=== PATIENT | female | born 1940 | race Caucasian/White ===

== ENCOUNTER 2018-12-04 11:52 | Inpatient (IN) | payer OTHER, MEDICARE ==
[2018-12-04] MEDS ORDERED: morphine CARPU-JECT 4 MG/1 ML DISP.SYRIN IVPUSH ONE (12:24)
--- NOTE | 2018-12-04 12:48 | PDOC ---
History of Present Illness - General Chief Complaint: Injury Stated Complaint: FALL Time Seen by Provider: 12/04/18 12:23 - History of Present Illness Initial Comments: 12/04/18 13:54 HPI 78 year old woman with a history of R knee replacement (5yrs ago) spinal stenosis, anemia, HTN who presents s/p fall after slipping on wet tiles. She reports she was walking when her leg slipped out from under her and she landed on her R hip and R forearm. She denies head trauma or loss of consciousness. She takes ASA 324 everyday but does not take any other AC. She reports she was unable to walk after the incident. She denies numbness and tingling in the leg. She is able to wiggle her toes. She cannot bend at the hip or the knee 2/2 pain. She has no other compalints. Denies neck or chest pain, denies shortbness of breath. ROS GENERAL/CONSTITUTIONAL: No fever or chills. No weakness. HEAD, EYES, EARS, NOSE AND THROAT: No change in vision. No ear pain or discharge. No sore throat. CARDIOVASCULAR: No chest pain or shortness of breath RESPIRATORY: No cough, wheezing, or hemoptysis. GASTROINTESTINAL: No nausea, vomiting, diarrhea or constipation. GENITOURINARY: No dysuria, frequency, or change in urination. MUSCULOSKELETAL: See HPI SKIN: No rash NEUROLOGIC: No headache, vertigo, loss of consciousness, or change in strength/ sensation. PE GENERAL: Awake, alert, and fully oriented, in no acute distress HEAD: No signs of trauma, normocephalic, atraumatic EYES: EOMI, sclera anicteric, conjunctiva clear ENT: oropharynx clear without exudates. Moist mucosa NECK: Normal ROM, supple LUNGS: No distress, speaks full sentences, clear to auscultation bilaterally HEART: Regular rate and rhythm, normal S1 and S2, no murmurs, rubs or gallops, peripheral pulses normal and equal bilaterally. ABDOMEN: Soft, nontender, normoactive bowel sounds. No guarding, no rebound. No masses EXTREMITIES : tenderness to palpation of the R thigh, difficulty flexing at hip and knee 2/2 pain, NV intact NEUROLOGICAL: Cranial nerves II through XII grossly intact. Normal speech, no focal sensorimotor deficits SKIN: Warm, Dry, normal turgor, no rashes or lesions noted MDM 8 year old woman with a history of R knee replacement (5yrs ago) spinal stenosis , anemia, HTN who presents s/p fall after slipping on wet tiles. She reports she was walking when her leg slipped out from under her and she landed on her R hip and R forearm. DDX including but not limited to: femoral fx vs sprain W/U: - cbc, cmp ,caogs, type and screen, xr of hip and femur TX: - morphine ED Course: labs Na- 128 liter normal saline ordered XR with R intratrochanter fracture with less trochanter avulsion Case discussed with Orthopedics Dr. Zuniga, plan for OR tomorrow Case discussed with resident Dr. Aparicio Patient admitted to medicine Shirin Xiong, PGY2 Emergency Medicine Past History - Past Medical History Allergies/Adverse Reactions: Allergies Allergy/AdvReac Type Severity Reaction Status Date / Time adhesive Allergy Intermediate Itching Verified 03/07/16 13:53 aspirin Allergy Intermediate POSS GI Verified 03/07/16 13:53 BLEEDING-ANEMIA NSAIDS (Non-Steroidal Allergy Intermediate POSS GI Verified 03/07/16 13:53 Anti-Inflamma BLEEDING-ANEMIA polyethylene glycol 3350 Allergy Intermediate ITCHING, Verified 03/07/16 13:53 [From Miralax] HIVES ranitidine Allergy Intermediate Itching, Verified 03/07/16 13:53 HIVES latex Allergy Itching Verified 03/07/16 13:53 BANDAIDS Allergy Intermediate ITCHING, Uncoded 03/07/16 13:53 HIVES Home Medications: Ambulatory Orders Ascorbate Calcium [Vitamin C] 500 mg PO DAILY 03/24/14 Ferrous Sulfate [Feosol] 325 mg PO DAILY 03/24/14 Amlodipine Besylate [Norvasc -] 5 mg PO DAILY 12/04/18 Chlorhexidine Gluconate [Peridex -] 1 unit DAILY 12/05/18 Losartan/Hydrochlorothiazide [Losartan-Hctz 100-12.5 mg Tab] 1 each PO DAILY Anemia: Yes (ON IRON SUPPLEMENT) Asthma: No Cancer: Yes (BASAL CELL 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) Cardiac Disorders: No CVA: No COPD: No CHF: No Dementia: No Diabetes: No GI Disorders: Yes (REFLUX, HIATAL HERNIA, DIVERTICULOSIS) Disorders: No HTN: Yes (2013) Hypercholesterolemia: No Liver Disease: No Seizures: No Thyroid Disease: No - Surgical History Abdominal Surgery: No Appendectomy: No Cardiac Surgery: No Cholecystectomy: No Lung Surgery: No Neurologic Surgery: No Orthopedic Surgery: Yes (GANGLION CYST-1973) - Suicide/Smoking/Psychosocial Hx Smoking History: Never smoked Have you smoked in the past 12 months: No Number of Cigarettes Smoked Daily: 20 If you are a former smoker, when did you quit?: 1994 Information on smoking cessation initiated: No Hx Alcohol Use: No Drug/Substance Use Hx: No Substance Use Type: None Hx Substance Use Treatment: No *Physical Exam - Vital Signs Last Vital Signs Temp Pulse Resp BP Pulse Ox 97.9 F 90 16 156/66 100 12/04/18 12:00 12/04/18 12:00 12/04/18 12:00 12/04/18 12:00 12/04/18 12:00 ED Treatment Course - LABORATORY CBC & Chemistry Diagram: 12/06/18 16:30 12/06/18 07:43 - RADIOLOGY Radiology Studies Ordered: Category Date Time Status CHEST X-RAY PORTABLE* [RAD] Stat Radiology 12/04/18 12:46 Ordered FEMUR-RIGHT [RAD] Stat Radiology 12/04/18 12:46 Ordered HIP & PELVIS-RIGHT [RAD] Stat Radiology 12/04/18 12:24 Ordered *DC/Admit/Observation/Transfer Diagnosis at time of Disposition: Hip fracture - Discharge Dispostion Condition at time of disposition: Stable Decision to Admit order: Yes - Referrals - Patient Instructions - Post Discharge Activity
[2018-12-04 13:07] LABS: BASO % 0.7 % (0-2.0); EOS % 2.3 % (0-4.5); HEMOGLOBIN 12.5 GM/dL (10.7-15.3); LYMPH % 19.9 % (8-40); MCH 30.4 pg (25.7-33.7); MCHC 33.8 g/dl (32.0-36.0); MEAN CELL VOLUME 89.9 fl (80-96); MONO % 9.1 % (3.8-10.2); PLATELET COUNT 311 K/MM3 (134-434); RBC 4.12 M/mm3 (3.60-5.2); WHITE BLOOD COUNT 5.3 K/mm3 (4.0-10.0)
[2018-12-04 13:19] LABS: INR 0.92 (0.83-1.09); PROTHROMBIN TIME (PATIENT) 10.8 SEC (9.7-13.0)
[2018-12-04 13:31] LABS: ALBUMIN 4.1 g/dl (3.4-5.0); BILIRUBIN,TOTAL 0.9 mg/dL (0.2-1); BLOOD UREA NITROGEN 17.9 mg/dL (7-18); CALCIUM 9.3 mg/dL (8.5-10.1); CREATININE 0.8 mg/dL (0.55-1.3); POTASSIUM 4.3 mmol/L (3.5-5.1); TOT PROT 7.6 g/dl (6.4-8.2)
[2018-12-04] MEDS ORDERED: morphine SULFATE 4 MG/ML VIAL ONE (13:39)
[2018-12-04] MEDS ORDERED: SODIUM CHLORIDE 1,000 ML IV SCH (14:00)
--- NOTE | 2018-12-04 14:17 | PDOC ---
Documentation entered by Yu Alanis SCRIBE, acting as scribe for Jose Rodriguez MD. Jose Rodriguez MD: This documentation has been prepared by the Annabelle jarrell Xhesika, SCRIBE, under my direction and personally reviewed by me in its entirety. I confirm that the documentation accurately reflects all work, treatment, procedures, and medical decision making performed by me. Attending Attestation - Resident Resident Name: Shirin Xiong - ED Attending Attestation I have performed the following: I have examined & evaluated the patient, The case was reviewed & discussed with the resident, I agree w/resident's findings & plan, Exceptions are as noted - HPI HPI: 12/04/18 14:12 The patient is a 78 year old female with a significant past medical history of R knee replacement (5yrs ago), HTN, Anemia, and spinal stenosis who presents to the ED with 10/10 mid thigh pain s/p fall. Patient states she was walking, her leg slipped out from under her and she landed on her R hip and R forearm. Patient states she was unable to ambulate after her fall, however, she denies LOC or hitting her head. The patient denies chest pain, shortness of breath, headache and dizziness. Denies fever, chills, nausea, vomiting, diarrhea and constipation. Denies dysuria, frequency, urgency and hematuria. Allergies: NKA PCP: Elke Alarcon - Physicial Exam PE: 12/04/18 15:36 Vitals: Triage Vital signs reviewed General Appearance: no acute distress, well nourished well developed, Head: Atraumatic, normocephalic Neck: Supple;No Nuchal rigidity Chest Wall: Nontender Cardiac: Regular rate and rhythm, no murmurs, no rubs, no gallops, Lungs: Clear to auscultation bilateral, good air movement bilaterally, Abdomen: Soft, nondistended, normal bowel sounds, nontender to palpation Extremities:(+) R hip tenderness to palpation. no cyanosis, clubbing, or edema Skin: Warm and dry, no rashes or lesions, no petechiae Neuro: AOX3; Cranial Nerves 2-12 grossly c intact, Strength intact to all extremities, Sensation intact to all extremities, gait normal Psych: normal mood, normal affect - Medical Decision Making 12/04/18 16:35 The patient is a 78 year old female with a significant past medical history of R knee replacement (5yrs ago), HTN, Anemia, and spinal stenosis who presents to the ED with 10/10 mid thigh pain s/p fall. Patient states she was walking, her leg slipped out from under her and she landed on her R hip and R forearm. Patient states she was unable to ambulate after her fall, however, she denies LOC or hitting her head. Pt. is on ASA Positive right intertrochanteric hip fracture on x-ray Case discussed with orthopedics We'll admit to medicine for further management nothing by mouth after midnight likely surgery tomorrow.
--- NOTE | 2018-12-04 15:50 | HP ---
CHIEF COMPLAINT: mechanical fall PCP:dr. espitia HISTORY OF PRESENT ILLNESS: 78 y/o female with PMH of HTN, spinal stenosis presents to the ED after a mechanical fall- patient states that she was at a luncheon with her friends when she noticed some wet tiles on the floor underneath her, she slipped and fell onto her right side hurting her right hip/thigh and suffered a bruise on her right elbow. she denies any LOC,nor did she have any prodromal symptoms beforehand (no dizziness/chest pains/ sweats). this was a witnessed fall- she tried to get up afterwards however she was in too much pain so EMS was called. she is a very independent 78 y/o- she lives by herself with no home health aid, does all of her ADLS", however uses a cane to get around because she has chronic pain in her left leg due to her spinal stenosis;.she denies any recent travel or any sick contacts ER course was notable for: (1)Na 128 (2)XRAY done showing r intertrochanteric femur fx; ortho consulted (3)given morphine for pain Recent Travel: denies PAST MEDICAL HISTORY: see above PAST SURGICAL HISTORY: right knee replacement Social History: Smoking:former; quit 25 years ago Alcohol:social Drugs: denies Family History:sister has breast and ovarian ca; cousin has lymphoma Allergies adhesive Allergy (Intermediate, Verified 03/07/16 13:53) Itching aspirin Allergy (Intermediate, Verified 03/07/16 13:53) POSS GI BLEEDING-ANEMIA NSAIDS (Non-Steroidal Anti-Inflamma Allergy (Intermediate, Verified 03/07/16 13: 53) POSS GI BLEEDING-ANEMIA polyethylene glycol 3350 [From Miralax] Allergy (Intermediate, Verified 13:53) ITCHING, HIVES ranitidine Allergy (Intermediate, Verified 03/07/16 13:53) Itching, HIVES latex Allergy (Verified 03/07/16 13:53) Itching BANDAIDS Allergy (Intermediate, Uncoded 03/07/16 13:53) ITCHING, HIVES HOME MEDICATIONS: Home Medications Medication Instructions Recorded Ascorbate Calcium [Vitamin C] 500 mg PO DAILY 03/24/14 Ferrous Sulfate [Feosol] 325 mg PO DAILY 03/24/14 Amlodipine Besylate [Norvasc -] 5 mg PO DAILY 12/04/18 Losartan/Hydrochlorothiazide 1 each PO DAILY 12/04/18 [Losartan-Hctz 50-12.5 mg Tab] REVIEW OF SYSTEMS CONSTITUTIONAL: Absent: fever, chills, diaphoresis, generalized weakness, malaise, loss of appetite, weight change HEENT: Absent: rhinorrhea, nasal congestion, throat pain, throat swelling, difficulty swallowing, mouth swelling, ear pain, eye pain, visual changes CARDIOVASCULAR: Absent: chest pain, syncope, palpitations, irregular heart rate, lightheadedness , peripheral edema RESPIRATORY: Absent: cough, shortness of breath, dyspnea with exertion, orthopnea, wheezing, stridor, hemoptysis GASTROINTESTINAL: Absent: abdominal pain, abdominal distension, nausea, vomiting, diarrhea, constipation, melena, hematochezia GENITOURINARY: Absent: dysuria, frequency, urgency, hesitancy, hematuria, flank pain, genital pain MUSCULOSKELETAL: Present; myalgia, arthralgia Absent: joint swelling, back pain, neck pain SKIN: Absent: rash, itching, pallor HEMATOLOGIC/IMMUNOLOGIC: Absent: easy bleeding, easy bruising, lymphadenopathy, frequent infections ENDOCRINE: Absent: unexplained weight gain, unexplained weight loss, heat intolerance, cold intolerance NEUROLOGIC: Absent: headache, focal weakness or paresthesias, dizziness, unsteady gait, seizure, mental status changes, bladder or bowel incontinence PSYCHIATRIC: Absent: anxiety, depression, suicidal or homicidal ideation, hallucinations. PHYSICAL EXAMINATION Vital Signs - 24 hr 12/04/18 12:00 Temperature 97.9 F Pulse Rate 90 Respiratory 16 Rate Blood Pressure 156/66 O2 Sat by Pulse 100 Oximetry (%) GENERAL: Awake, alert, oriented, slightly tearful. HEENT; dry mucous membranes EYES:PEERLA: EOMI: no scleral icterus NECK:no JVD; no lympahdenopathy LUNGS:CTA B/L; no rales, rhonchi or wheezing HEART: Regular rate and rhythm, normal S1 and S2 without murmur, rub or gallop. ABDOMEN: Soft, nontender, not distended, normoactive bowel sounds, no guarding, no rebound, no masses. No hepatomegaly or splenomegaly. MUSCULOSKELETAL: decreased ROM on the right side; right hip tenderness upon palpation. EXTREMITIES: warm; well perfused no clubbing/cyanosis or edema NEUROLOGICAL: Cranial nerves II-XII intact. Normal speech RLE 3/5 strength RUE 5/5; LUE/LLE; 5/5 strength throughout sensation intact throughout PSYCHIATRIC: Cooperative. Good eye contact. Appropriate mood and affect. SKIN: Warm, dry, normal turgor, no rashes or lesions noted, normal capillary refill. Laboratory Results - last 24 hr 12/04/18 12/04/18 12/04/18 12:35 12:35 12:35 WBC 5.3 RBC 4.12 Hgb 12.5 Hct 37.0 D MCV 89.9 MCH 30.4 D MCHC 33.8 RDW 14.0 D Plt Count 311 MPV 7.0 L Absolute Neuts (auto) 3.6 Neutrophils % 68.0 Lymphocytes % 19.9 D Monocytes % 9.1 Eosinophils % 2.3 Basophils % 0.7 Nucleated RBC % 0 PT with INR INR PTT (Actin FS) 28.7 Sodium 128 L Potassium 4.3 Chloride 93 L Carbon Dioxide 25 Anion Gap 10 BUN 17.9 Creatinine 0.8 Est GFR (CKD-EPI)AfAm 81.27 Est GFR (CKD-EPI)NonAf 70.12 Random Glucose 115 H Calcium 9.3 Total Bilirubin 0.9 AST 20 ALT 16 Alkaline Phosphatase 112 Total Protein 7.6 Albumin 4.1 Blood Type Antibody Screen 12/04/18 12/04/18 12:35 13:42 WBC RBC Hgb Hct MCV MCH MCHC RDW Plt Count MPV Absolute Neuts (auto) Neutrophils % Lymphocytes % Monocytes % Eosinophils % Basophils % Nucleated RBC % PT with INR 10.80 INR 0.92 PTT (Actin FS) Sodium Potassium Chloride Carbon Dioxide Anion Gap BUN Creatinine Est GFR (CKD-EPI)AfAm Est GFR (CKD-EPI)NonAf Random Glucose Calcium Total Bilirubin AST ALT Alkaline Phosphatase Total Protein Albumin Blood Type B POSITIVE Antibody Screen Positive ASSESSMENT/PLAN: 78 y/o female with PMH of HTN, spinal stenosis presents to the ED after a mechanical fall found to have a right intertrochanteric femur fracture #Mechanical fall patient found to have right intertrochanteric femur fracture -ortho consulted; patient to be going to the OR tomorrow -type and screen -coags -NPO after midnight -morpine 2mg q6H PRN for pain control -SCDS for dvt ppx #Hyponatremia patient's sodium was 128; patient has been hyponatremic in the past -clinically looked dry on exam -NS @75mls/hr -will recheck BMP at 8pm #HTN -will c/w amlodipine 5mg daily -will c/w losartan/50mg daily and hold HCTZ F/E/N NS @75mls/hr hyponatremia- will recheck BMP at 8pm NPO after midnight Problem List - Problem (1) Hip fracture Code(s): S72.009A - FRACTURE OF UNSP PART OF NECK OF UNSP FEMUR, INIT Visit type - Emergency Visit Emergency Visit: Yes ED Registration Date: 12/04/18 Care time: The patient presented to the Emergency Department on the above date and was hospitalized for further evaluation of their emergent condition. - New Patient This patient is new to me today: Yes Date on this admission: 12/04/18 - Critical Care Critical Care patient: No ATTENDING PHYSICIAN STATEMENT I saw and evaluated the patient. I reviewed the resident's note and discussed the case with the resident. I agree with the resident's findings and plan as documented. SUBJECTIVE: OBJECTIVE: ASSESSMENT AND PLAN:
--- NOTE | 2018-12-04 16:41 | PN ---
Teaching Attending Note Name of Resident: Mariola Aparicio ATTENDING PHYSICIAN STATEMENT I saw and evaluated the patient. I reviewed the resident's note and discussed the case with the resident. I agree with the resident's findings and plan as documented. SUBJECTIVE: Reports R hip pain. No chest pain/palps/SOB. No fever/chills. OBJECTIVE: Afebrile, Hemodynamicaly Stable. Last Vital Signs Temp Pulse Resp BP Pulse Ox 97.9 F 90 16 156/66 100 12/04/18 12:00 12/04/18 12:00 12/04/18 12:00 12/04/18 12:00 12/04/18 12:00 HEENT- Atraumatic, Normocephalic. Heart- S1, S2, soft SM Lungs - clear to auscultation Abdomen - Soft, non-tender. Bowel Sounds normal. Extremities - bilateral varicosities, no calf tenderness. R leg shortened and externally rotated. Decreased ROM R hip due to pain. Laboratory Results - last 24 hr 12/04/18 12/04/18 12/04/18 12:35 12:35 12:35 WBC 5.3 RBC 4.12 Hgb 12.5 Hct 37.0 D MCV 89.9 MCH 30.4 D MCHC 33.8 RDW 14.0 D Plt Count 311 MPV 7.0 L Absolute Neuts (auto) 3.6 Neutrophils % 68.0 Lymphocytes % 19.9 D Monocytes % 9.1 Eosinophils % 2.3 Basophils % 0.7 Nucleated RBC % 0 PT with INR INR PTT (Actin FS) 28.7 Sodium 128 L Potassium 4.3 Chloride 93 L Carbon Dioxide 25 Anion Gap 10 BUN 17.9 Creatinine 0.8 Est GFR (CKD-EPI)AfAm 81.27 Est GFR (CKD-EPI)NonAf 70.12 Random Glucose 115 H Calcium 9.3 Total Bilirubin 0.9 AST 20 ALT 16 Alkaline Phosphatase 112 Total Protein 7.6 Albumin 4.1 Blood Type Antibody Screen 12/04/18 12/04/18 12:35 13:42 WBC RBC Hgb Hct MCV MCH MCHC RDW Plt Count MPV Absolute Neuts (auto) Neutrophils % Lymphocytes % Monocytes % Eosinophils % Basophils % Nucleated RBC % PT with INR 10.80 INR 0.92 PTT (Actin FS) Sodium Potassium Chloride Carbon Dioxide Anion Gap BUN Creatinine Est GFR (CKD-EPI)AfAm Est GFR (CKD-EPI)NonAf Random Glucose Calcium Total Bilirubin AST ALT Alkaline Phosphatase Total Protein Albumin Blood Type B POSITIVE Antibody Screen Positive Current Medications Generic Name Dose Route Start Last Admin Trade Name Davi PRN Reason Stop Dose Admin Amlodipine Besylate 5 mg 12/05/18 10:00 Norvasc - PO DAILY PORTILLO HCTZ/Losartan Potassium 1 tab 12/05/18 10:00 Hyzaar - PO DAILY PORTILLO Sodium Chloride 1,000 mls @ 0 mls/hr 12/04/18 14:00 12/04/18 15:44 Normal Saline - IV 1,000 mls/hr ASDIR PORTILLO Administration Wide Open Morphine Sulfate 2 mg 12/04/18 15:23 Morphine Sulfate IVPUSH Q6H PRN PAIN LEVEL 4 - 6 Home Medications Medication Instructions Recorded Ascorbate Calcium [Vitamin C] 500 mg PO DAILY 03/24/14 Ferrous Sulfate [Feosol] 325 mg PO DAILY 03/24/14 Amlodipine Besylate [Norvasc -] 5 mg PO DAILY 12/04/18 Losartan/Hydrochlorothiazide 1 each PO DAILY 12/04/18 [Losartan-Hctz 50-12.5 mg Tab] ASSESSMENT AND PLAN: 78 year old female with HTN, Spinal Stenosis, presents with r hip pain s/p mechanical fall, found to have acute R Intertrochanteric fracture. No preceding CP/palpitations/lightheadedness. No HI or LOC. XRAY Hip/Pelvis - R intertrochanteric Fracture with avulsion of lesser trochanter. 1. R hip fracture s/p Mechanical Orthopedics consulted, likely Sx tomorrow, NPO from [place] Morphine analgesia Patient at moderate risk for proposed procedure. Felicia-op hydration, DVT Px, Incentive Spirometry. Post-op PT 2. Hyponatremia, likely secondary to Dehydration Will gently hydrate and monitor response. 3. HTN - continue Amlodipine and Losartan. Hold HCTZ. DVT Px - Heparin SQ
[2018-12-04] MEDS ORDERED: ONDANSETRON 4 MG/2 ML VIAL IVPUSH PRN (16:43)
[2018-12-04] MEDS: MORPHINE SULFATE 2 MG/ML VIAL IVPUSH PRN (17:27)
[2018-12-04 18:35] VITALS: BMI 25.1
--- NOTE | 2018-12-04 19:38 | CONSULT ---
Consult - text type - Consultation Consultation Note: ORTHOPEDIC SURGERY CONSULTATION NOTE Department of Orthopedic Surgery HISTORY OF PRESENT ILLNESS Ms. Dietz is a 78 year old female with PMH of HTN, spinal stenosis presents to the ED after a mechanical fall. Patient states that she was at a luncheon with her friends when she noticed some wet tiles on the floor underneath her, she slipped and fell onto her right side hurting her right hip/thigh and suffered a bruise on her right elbow. The orthopedic service was consulted for a right hip fracture. The injury occurred after a slip and fall. The patient notes pain in her right hip, which improves with rest, and worsens with movement. Denies any other injuries. Denies LOC or head trauma. Denies numbness, tingling or other constitutional complaints. Denies tobacco use, drug use, alcohol abuse. The patient lives alone and uses a cane for assistive devices at baseline. FAMILY HISTORY non-contributory REVIEW OF SYMPTOMS A twelve-point review of systems was performed and was negative except as noted in HPI. PHYSICAL EXAM Constitutional: Alert and oriented to person, place, and time. Appears well- developed and well-nourished. No acute distress, appropriate mood and affect. Right Upper Extremity: Skin warm, dry, and intact; no lesions, rashes or ulcers noted. Mild bruising over right elbow. Muscle mass equal and symmetric to contralateral side. No atrophy noted. No masses or effusions noted. No tenderness to palpation all joints; nontender throughout rest of extremity. Full passive and active ROM, free from pain. Joints stable with no pathologic laxity. M/R/U/MSK/AX motor intact; SILT distally; 2+ radial pulses; Cap refill brisk. Tone and reflexes normal. Left Upper Extremity: Skin warm, dry, and intact; no lesions, rashes or ulcers noted. Muscle mass equal and symmetric to contralateral side. No atrophy noted. No masses or effusions noted. No tenderness to palpation all joints; nontender throughout rest of extremity. Full passive and active ROM, free from pain. Joints stable with no pathologic laxity. M/R/U/MSK/AX motor intact; SILT distally; 2+ radial pulses; Cap refill brisk. Tone and reflexes normal. Right Lower Extremity: Skin warm, dry, and intact; no lesions, rashes or ulcers noted. Muscle mass equal and symmetric to contralateral side. No atrophy noted. No masses or effusions noted. No tenderness to palpation/Tender to palpation at ; nontender throughout rest of extremity. No cords or calf tenderness No significant calf/ankle edema. ROM of the right hip. Unable to SLR, + log roll test. Full passive and active ROM of the knee and ankle and toes, free from pain. Joints stable with no pathologic laxity. EHL/TA/GS motor intact; SILT distally; 2+ DP pulses; Cap refill brisk. Tone and reflexes normal. Left Lower Extremity: Skin warm, dry, and intact; no lesions, rashes or ulcers noted. Muscle mass equal and symmetric to contralateral side. No atrophy noted. No masses or effusions noted. No tenderness to palpation all joints; nontender throughout rest of extremity. No cords or calf tenderness No significant calf/ankle edema. Able to SLR, Negative log roll test. Full passive and active ROM, free from pain. Joints stable with no pathologic laxity. EHL/TA/GS motor intact; SILT distally; 2+ DP pulses; Cap refill brisk. Tone and reflexes normal. Active Problems Problem Status Category Onset Hip fracture Acute Medical Social History Smoking history Former smoker Aproximately how many 20 cigarettes per day If you are a former smoker, 1995 when did you quit? Hx Alcohol Use No Allergies Allergy/AdvReac Type Severity Reaction Status Date / Time adhesive Allergy Intermediate Itching Verified 03/07/16 13:53 aspirin Allergy Intermediate POSS GI Verified 03/07/16 13:53 BLEEDING-ANEMIA NSAIDS (Non-Steroidal Allergy Intermediate POSS GI Verified 03/07/16 13:53 Anti-Inflamma BLEEDING-ANEMIA polyethylene glycol 3350 Allergy Intermediate ITCHING, Verified 03/07/16 13:53 [From Miralax] HIVES ranitidine Allergy Intermediate Itching, Verified 03/07/16 13:53 HIVES latex Allergy Itching Verified 03/07/16 13:53 BANDAIDS Allergy Intermediate ITCHING, Uncoded 03/07/16 13:53 HIVES Active Medications Generic Name Dose Route Start Last Admin Trade Name Freq PRN Reason Stop Dose Admin Amlodipine Besylate 5 mg 12/05/18 10:00 Norvasc - PO DAILY PORTILLO Heparin Sodium (Porcine) 5,000 unit 12/04/18 22:00 Heparin - SQ TID PORTILLO Sodium Chloride 1,000 mls @ 0 mls/hr 12/04/18 14:00 12/04/18 15:44 Normal Saline - IV 1,000 mls/hr ASDIR PORTILLO Administration Wide Open Losartan Potassium 50 mg 12/05/18 10:00 Cozaar - PO DAILY PORTILLO Morphine Sulfate 2 mg 12/04/18 15:23 12/04/18 17:27 Morphine Sulfate IVPUSH 2 mg Q6H PRN Administration PAIN LEVEL 4 - 6 Ondansetron HCl 4 mg 12/04/18 16:43 12/04/18 18:22 Zofran Injection IVPUSH 4 mg Q6H PRN Administration NAUSEA Vital Signs (last) Temp Pulse Resp BP Pulse Ox 97.9 F 75 20 115/72 97 12/04/18 18:26 12/04/18 18:26 12/04/18 18:49 12/04/18 18:26 12/04/18 18:49 Intake and Output 12/02/18 12/03/18 12/04/18 23:59 23:59 23:59 Intake Total 1000 Balance 1000 Intake: IV 1000 Normal Saline - 1,000 ml 1000 @ Wide Open IV ASDIR PORTILLO Rx#:[id number] Other: Voiding Method Toilet Bowel Movement No Weight 141 lb 14.4 oz Height 5 ft 3 in Body Mass Index (BMI) 25.1 Weight Measurement Method [facility] Measurement Method Est/Stated by Patient Laboratory 12/04/18 12:35 12/04/18 12:35 PT with INR 10.80 SEC (9.7-13.0) 12/04/18 12:35 PTT (Actin FS) 28.7 SECONDS (25.2-36.5) 12/04/18 12:35 IMAGING I personally reviewed all radiographs, CT, and other imaging. They demonstrate a right hip intertrochanteric fracture with subtrochanteric extension. ASSESSMENT AND PLAN Ms. Dietz is a 78 year old female presenting status post mechanical fall with a right sided hip fracture. We have reviewed the imaging and clinical findings in detail, as well as their potential implications. This is an operative fracture. Admit NPO past midnight except for meds NWB RLE CBC/BMP/Coags Type and Screen/2 units PRBC on hold IV Fluids as per medical team while NPO EKG CXR UA - Needs medical clearance note for surgery - Plan for surgery on 12/05/18 PM All questions were answered. Thank you for involving our team in the care of this patient. Please call us at [phone] with questions
--- NOTE | 2018-12-04 21:05 | EKG ---
Test Reason : Blood Pressure : / mmHG Vent. Rate : 067 BPM Atrial Rate : 067 BPM P-R Int : 180 ms QRS Dur : 084 ms QT Int : 402 ms P-R-T Axes : 088 065 029 degrees QTc Int : 424 ms SINUS RHYTHM WITH PREMATURE ATRIAL COMPLEXES OTHERWISE NORMAL ECG WHEN COMPARED WITH ECG OF 10-JAN-2014 18:46, PREMATURE ATRIAL COMPLEXES ARE NOW PRESENT Confirmed by MD LULU, ALEAH ([id number]) on 12/04/2018 9:05:35 PM Referred By: Confirmed By:ALEAH LAWSON MD
[2018-12-04] MEDS: HEPARIN NA (PORCINE) 5,000 UNITS/ML 1ML VIAL SQ SCH (21:43)
[2018-12-04 21:44] LABS: BLOOD UREA NITROGEN 16.6 mg/dL (7-18); CALCIUM 8.3 mg/dL (8.5-10.1); CREATININE 0.9 mg/dL (0.55-1.3); POTASSIUM 4.1 mmol/L (3.5-5.1)
[2018-12-05] MEDS: MORPHINE SULFATE 2 MG/ML VIAL IVPUSH PRN ×2 (00:24→08:33)
[2018-12-05] MEDS: HEPARIN NA (PORCINE) 5,000 UNITS/ML 1ML VIAL SQ SCH (05:30)
[2018-12-05 07:30] LABS: PROTHROMBIN TIME (PATIENT) 11.8 SEC (9.7-13.0)
[2018-12-05 07:32] LABS: ALBUMIN 2.9 g/dl (3.4-5.0); BLOOD UREA NITROGEN 13.1 mg/dL (7-18); CALCIUM 8.4 mg/dL (8.5-10.1); CREATININE 0.7 mg/dL (0.55-1.3); TOT PROT 5.5 g/dl (6.4-8.2)
[2018-12-05 07:33] LABS: ACTIVATED PTT 27.6 SECONDS (25.2-36.5)
[2018-12-05] MEDS: LOSARTAN POTASSIUM 50 MG TABLET (FP) PO SCH ×2 (08:34→09:11)
[2018-12-05] MEDS: amLODIPine BESYLATE 5 MG TABLET (FP) PO SCH ×2 (08:34→09:11)
[2018-12-05] MEDS ORDERED: LOSARTAN 50MG/HCTZ 12.5MG 1 TAB (FP) PO SCH (10:00)
[2018-12-05] MEDS ORDERED: MORPHINE SULFATE 2 MG/ML VIAL IVPUSH PRN (10:34)
[2018-12-05 10:57] LABS: BASO % 0.4 % (0-2.0); EOS % 0.9 % (0-4.5); HEMATOCRIT 26.3 % (32.4-45.2); HEMOGLOBIN 9.1 GM/dL (10.7-15.3); LYMPH % 25.5 % (8-40); MCH 31.2 pg (25.7-33.7); MCHC 34.6 g/dl (32.0-36.0); MEAN CELL VOLUME 89.9 fl (80-96); MEAN PLT VOLUME 7.2 fl (7.5-11.1); MONO % 10.1 % (3.8-10.2); NEUT % 63.1 % (42.8-82.8); PLATELET COUNT 201 K/MM3 (134-434); RBC 2.92 M/mm3 (3.60-5.2); RDW 13.3 % (11.6-15.6); WHITE BLOOD COUNT 4.8 K/mm3 (4.0-10.0)
--- NOTE | 2018-12-05 14:53 | PN ---
Progress Note (short form) - Note Progress Note: ORTHOPEDIC SURGERY PROGRESS NOTE Department of Orthopedic Surgery SUBJECTIVE No acute events overnight. No complaints currently. Denies chest pain, shortness of breath, or calf pain. No nausea or vomiting. Tolerating oral intake. Pain control difficult overnight, but improving. PHYSICAL EXAMINATION General: Alert, oriented, cooperative and no distress. Right Lower Extremity: Skin warm, dry, and intact; no lesions, rashes or ulcers noted. Muscle mass equal and symmetric to contralateral side. No atrophy noted. No masses or effusions noted. Tender to palpation at at the greater trochanter; nontender throughout rest of extremity. No cords or calf tenderness No significant calf/ankle edema. ROM of the right hip. Unable to SLR, + log roll test. Full passive and active ROM of the knee and ankle and toes, free from pain. Joints stable with no pathologic laxity. EHL/TA/GS motor intact; SILT distally; 2+ DP pulses; Cap refill brisk. Tone and reflexes normal. DVT Exam: No evidence of DVT seen on physical exam; No cords or calf tenderness ; No significant calf/ankle edema. Intake & Output 12/03/18 12/04/18 12/05/18 23:59 23:59 23:59 Intake Total 1240 0 Output Total 100 1250 Balance 1140 -1250 Intake: IV 1000 Normal Saline - 1,000 ml 1000 @ Wide Open IV ASDIR PORTILLO Rx#:[id number] Oral 240 0 Output: Urine 100 1250 Malik 1250 Void 100 Other: Voiding Method Bedpan Bedpan Bowel Movement No No Weight 141 lb 14.4 oz Height 5 ft 3 in Body Mass Index (BMI) 25.1 Weight Measurement Method Built in [facility] Weight Measurement Method Est/Stated by Patient Active Medications Generic Name Dose Route Start Last Admin Trade Name Freq PRN Reason Stop Dose Admin Amlodipine Besylate 5 mg 12/05/18 10:00 12/05/18 09:11 Norvasc - PO Not Given DAILY PORTILLO Heparin Sodium (Porcine) 5,000 unit 12/04/18 22:00 12/05/18 05:30 Heparin - SQ Not Given TID PORTILLO Sodium Chloride 1,000 mls @ 0 mls/hr 12/04/18 14:00 12/04/18 15:44 Normal Saline - IV 1,000 mls/hr ASDIR PORTILLO Administration Wide Open Losartan Potassium 50 mg 12/05/18 10:00 12/05/18 09:11 Cozaar - PO Not Given DAILY PORTILLO Morphine Sulfate 2 mg 12/05/18 10:34 12/05/18 12:48 Morphine Sulfate IVPUSH 2 mg Q4H PRN Administration PAIN LEVEL 4 - 6 Ondansetron HCl 4 mg 12/04/18 16:43 12/04/18 18:22 Zofran Injection IVPUSH 4 mg Q6H PRN Administration NAUSEA Vital Signs (last) Temp Pulse Resp BP Pulse Ox 98.7 F 71 20 104/49 L 96 12/05/18 14:26 12/05/18 10:30 12/05/18 12:00 12/05/18 10:30 12/05/18 12:00 Laboratory (coagulation) PT with INR 11.80 SEC (9.7-13.0) 12/05/18 06:20 Laboratory 12/05/18 06:20 12/05/18 06:20 ASSESSMENT AND PLAN Ms. Dietz is a 78 year old female presenting status post mechanical fall with a right sided hip fracture. We have reviewed the imaging and clinical findings in detail, as well as their potential implications. This is an operative fracture. Admit NPO except for meds NWB RLE CBC/BMP/Coags Type and Screen/2 units PRBC on hold IV Fluids as per medical team while NPO EKG CXR UA - Plan for surgery today All questions were answered. Thank you for involving our team in the care of this patient. Please call us at [phone] with questions
--- NOTE | 2018-12-05 14:57 | PN ---
Physical Exam: SUBJECTIVE: 78 y/o F w PMH HTN and spinal stenosis whom presented to the ED s/p mechanical fall and admitted for surgical intervention, seen at bedside MYRANDA 2. Imaging demonstrates RIGHT intertrochanteric fracture with avulsion of lesser trochanter. Surgery scheduled for today. Pt states she was unable to sleep 2/2 to discomfort and RIGHT hip pain. Otherwise, she denies SOB, CP, and bleeding. Pt denies NVFD and chills. OBJECTIVE: Vital Signs Temp Pulse Resp BP Pulse Ox 98.7 F 71 20 104/49 L 96 12/05/18 14:26 12/05/18 10:30 12/05/18 12:00 12/05/18 10:30 12/05/18 12:00 GENERAL: The patient is awake, alert, and fully oriented, in no acute distress. HEAD: Normal with no signs of trauma. EYES: SALO, EOMI, sclera anicteric, conjunctiva clear. No ptosis. ENT: Ears normal, nares patent, oropharynx clear without exudates, moist mucous membranes. NECK: Trachea midline, full range of motion, supple. LUNGS: Breath sounds equal, clear to auscultation bilaterally, no wheezes, no crackles, no accessory muscle use. HEART: Regular rate and rhythm, S1, S2 without murmur, rub or gallop. ABDOMEN: Soft, nontender, nondistended, normoactive bowel sounds, no guarding, no rebound, no hepatosplenomegaly, no masses. EXTREMITIES: RIGHT hip tender to palpation. 2+ pulses, warm, well-perfused, no edema. NEUROLOGICAL: Cranial nerves III through XII grossly intact. Normal speech, gait not observed. PSYCH: Normal mood, normal affect. SKIN: Warm, dry, normal turgor, no rashes or lesions noted Laboratory Results - last 24 hr 12/04/18 12/04/18 12/05/18 13:42 20:40 06:20 WBC 4.8 RBC 2.92 L Hgb 9.1 L Hct 26.3 L D MCV 89.9 MCH 31.2 MCHC 34.6 RDW 13.3 Plt Count 201 D MPV 7.2 L Absolute Neuts (auto) 3.0 Neutrophils % 63.1 Lymphocytes % 25.5 D Monocytes % 10.1 Eosinophils % 0.9 Basophils % 0.4 Nucleated RBC % 0 PT with INR INR PTT (Actin FS) Sodium 129 L Potassium 4.1 Chloride 96 L Carbon Dioxide 24 Anion Gap 9 BUN 16.6 Creatinine 0.9 Est GFR (CKD-EPI)AfAm 70.48 Est GFR (CKD-EPI)NonAf 60.81 Random Glucose 171 H Calcium 8.3 L Magnesium Total Bilirubin AST ALT Alkaline Phosphatase Total Protein Albumin Blood Type B POSITIVE Antibody Screen Positive Antibody Identification No Result Required. Antigen Identification No Result Required. 12/05/18 12/05/18 06:20 06:20 WBC RBC Hgb Hct MCV MCH MCHC RDW Plt Count MPV Absolute Neuts (auto) Neutrophils % Lymphocytes % Monocytes % Eosinophils % Basophils % Nucleated RBC % PT with INR 11.80 INR 1.00 PTT (Actin FS) 27.6 Sodium 132 L Potassium 4.0 Chloride 99 Carbon Dioxide 24 Anion Gap 8 BUN 13.1 Creatinine 0.7 Est GFR (CKD-EPI)AfAm 95.51 Est GFR (CKD-EPI)NonAf 82.41 Random Glucose 99 Calcium 8.4 L Magnesium 2.0 Total Bilirubin 1.0 AST 20 ALT 11 L Alkaline Phosphatase 80 Total Protein 5.5 L Albumin 2.9 L Blood Type Antibody Screen Antibody Identification Antigen Identification Active Medications Amlodipine Besylate (Norvasc -) 5 mg PO DAILY [facility] Last Admin: 12/05/18 09:11 Dose: Not Given Heparin Sodium (Porcine) (Heparin -) 5,000 unit SQ TID [facility] Last Admin: 12/05/18 05:30 Dose: Not Given Sodium Chloride (Normal Saline -) 1,000 mls @ 0 mls/hr IV ASDIR [facility] Last Admin: 12/04/18 15:44 Dose: 1,000 mls/hr Losartan Potassium (Cozaar -) 50 mg PO DAILY [facility] Last Admin: 12/05/18 09:11 Dose: Not Given Morphine Sulfate (Morphine Sulfate) 2 mg IVPUSH Q4H PRN PRN Reason: PAIN LEVEL 4 - 6 Last Admin: 12/05/18 12:48 Dose: 2 mg Ondansetron HCl (Zofran Injection) 4 mg IVPUSH Q6H PRN PRN Reason: NAUSEA Last Admin: 12/04/18 18:22 Dose: 4 mg ASSESSMENT/PLAN: 78 y/o F w PMH HTN and spinal stenosis that presented w RIGHT hip pain s/p mechanical fall, found to have acute RIGHT intertrochanteric fracture here today awaiting surgical intervention. # RIGHT hip fracture s/p mechanical fall - NPO for surgery today - Felicia-op hydration - Morphine for pain - Preoperative mortality predictor score 0.6% # Hyponatremia - Most likely d/t dehydration - Provide fluids # HTN - Cont. current regimen: Amlodipine and losartan. Hold HCTZ. # Acute Blood Loss Anemia - H/H drop from 12.5/37 to 9.1/26.3 - Most likely d/t fracture - Poss d/t dilution. - Cont. to monitor H/H - Start ferrous sulfate s/p surgery # F/E/N - NS - Cont. to monitor electrolytes - Low salt diet Visit type - Emergency Visit Emergency Visit: No - New Patient This patient is new to me today: Yes Date on this admission: 12/05/18 - Critical Care Critical Care patient: No - Discharge Referral Referred to [facility] Med [facility] No ATTENDING PHYSICIAN STATEMENT I saw and evaluated the patient. I reviewed the resident's note and discussed the case with the resident. I agree with the resident's findings and plan as documented. SUBJECTIVE: OBJECTIVE: ASSESSMENT AND PLAN:
[2018-12-05] MEDS ORDERED: ONDANSETRON 4 MG/2 ML VIAL IVPUSH PRN ×3 (15:06→19:02)
[2018-12-05] MEDS ORDERED: PROMETHAZINE HCL 25 MG/1 ML VIAL IVPB PRN ×2 (15:06→19:02)
[2018-12-05] MEDS ORDERED: BUPIVACAINE HCL/PF 0.5% (5 MG/ML) 30 ML VIAL IJ ONE (15:08)
[2018-12-05] MEDS ORDERED: MIDAZOLAM HCL 2 MG/2 ML SINGLE DOSE VIAL ONE (15:14)
[2018-12-05] MEDS ORDERED: LACTATED RINGERS SOLUTION 1,000 ML IV SCH ×2 (15:15→19:02)
[2018-12-05] MEDS ORDERED: SODIUM CHLORIDE 0.9% P/F 10 ML VIAL IJ ONE (15:29)
[2018-12-05] MEDS ORDERED: ceFAZolin SODIUM 1 GM VIAL ONE ×2 (15:29→16:42)
[2018-12-05] MEDS ORDERED: ceFAZolin SODIUM 1 GM VIAL IVPB ONE ×2 (15:49→16:42)
[2018-12-05] MEDS ORDERED: LIDOCAINE HCL/PF 2% SDV 5ML VIAL ONE (16:04)
[2018-12-05] MEDS ORDERED: ETOMIDATE 20 MG/10 ML AMPUL IVPUSH ONE (16:04)
[2018-12-05] MEDS ORDERED: ROCURONIUM BROMIDE 50 MG/5 ML SYRINGE ONE (16:04)
[2018-12-05] MEDS ORDERED: DEXAMETHASONE SOD PHOSPHATE 4 MG/1 ML VIAL ONE (16:34)
--- NOTE | 2018-12-05 16:45 | PN ---
Teaching Attending Note Name of Resident: Kee Bright ATTENDING PHYSICIAN STATEMENT I saw and evaluated the patient. I reviewed the resident's note and discussed the case with the resident. I agree with the resident's findings and plan as documented. SUBJECTIVE: Reports ongoing R hip pain. No chest pain/palps/SOB. No fever/ chills. OBJECTIVE: Afebrile, Hemodynamicaly Stable. Last Vital Signs Temp Pulse Resp BP Pulse Ox 98.7 F 71 20 104/49 L 96 12/05/18 14:26 12/05/18 10:30 12/05/18 12:00 12/05/18 10:30 12/05/18 12:00 Heart- S1, S2, soft SM Lungs - clear to auscultation Abdomen - Soft, non-tender. Bowel Sounds normal. Extremities - bilateral varicosities, no calf tenderness. R leg shortened and externally rotated. Decreased ROM R hip due to pain. Laboratory Results - last 24 hr 12/04/18 12/04/18 12/05/18 13:42 20:40 06:20 WBC 4.8 RBC 2.92 L Hgb 9.1 L Hct 26.3 L D MCV 89.9 MCH 31.2 MCHC 34.6 RDW 13.3 Plt Count 201 D MPV 7.2 L Absolute Neuts (auto) 3.0 Neutrophils % 63.1 Lymphocytes % 25.5 D Monocytes % 10.1 Eosinophils % 0.9 Basophils % 0.4 Nucleated RBC % 0 PT with INR INR PTT (Actin FS) Sodium 129 L Potassium 4.1 Chloride 96 L Carbon Dioxide 24 Anion Gap 9 BUN 16.6 Creatinine 0.9 Est GFR (CKD-EPI)AfAm 70.48 Est GFR (CKD-EPI)NonAf 60.81 Random Glucose 171 H Calcium 8.3 L Magnesium Total Bilirubin AST ALT Alkaline Phosphatase Total Protein Albumin Antibody Identification No Result Required. Antigen Identification No Result Required. 12/05/18 12/05/18 06:20 06:20 WBC RBC Hgb Hct MCV MCH MCHC RDW Plt Count MPV Absolute Neuts (auto) Neutrophils % Lymphocytes % Monocytes % Eosinophils % Basophils % Nucleated RBC % PT with INR 11.80 INR 1.00 PTT (Actin FS) 27.6 Sodium 132 L Potassium 4.0 Chloride 99 Carbon Dioxide 24 Anion Gap 8 BUN 13.1 Creatinine 0.7 Est GFR (CKD-EPI)AfAm 95.51 Est GFR (CKD-EPI)NonAf 82.41 Random Glucose 99 Calcium 8.4 L Magnesium 2.0 Total Bilirubin 1.0 AST 20 ALT 11 L Alkaline Phosphatase 80 Total Protein 5.5 L Albumin 2.9 L Antibody Identification Antigen Identification Current Medications Generic Name Dose Route Start Last Admin Trade Name Freq PRN Reason Stop Dose Admin Amlodipine Besylate 5 mg 12/05/18 10:00 12/05/18 09:11 Norvasc - PO Not Given DAILY PORTILLO Fentanyl 50 mcg 12/05/18 15:06 Sublimaze Injection - IVPUSH [id number] PRN PAIN-PACU ORDER X 4 DOSES ONLY Heparin Sodium (Porcine) 5,000 unit 12/04/18 22:00 12/05/18 05:30 Heparin - SQ Not Given TID PORTILLO Sodium Chloride 1,000 mls @ 0 mls/hr 12/04/18 14:00 12/04/18 15:44 Normal Saline - IV 1,000 mls/hr ASDIR PORTILLO Administration Wide Open Lactated Ringer's 1,000 mls @ 125 mls/hr 12/05/18 15:15 Lactated Ringers Solution IV ASDIR PORTILLO Losartan Potassium 50 mg 12/05/18 10:00 12/05/18 09:11 Cozaar - PO Not Given DAILY PORTILLO Morphine Sulfate 2 mg 12/05/18 10:34 12/05/18 12:48 Morphine Sulfate IVPUSH 2 mg Q4H PRN Administration PAIN LEVEL 4 - 6 Ondansetron HCl 4 mg 12/04/18 16:43 12/04/18 18:22 Zofran Injection IVPUSH 4 mg Q6H PRN Administration NAUSEA Ondansetron HCl 4 mg 12/05/18 15:06 Zofran Injection IVPUSH Q6H PRN NAUSEA AND/OR VOMITING Promethazine HCl 12.5 mg 12/05/18 15:06 Phenergan Injection - IVPB Q6H PRN NAUSEA-FOR RESCUE AFTER 15 MIN Home Medications Medication Instructions Recorded Ascorbate Calcium [Vitamin C] 500 mg PO DAILY 03/24/14 Ferrous Sulfate [Feosol] 325 mg PO DAILY 03/24/14 Amlodipine Besylate [Norvasc -] 5 mg PO DAILY 12/04/18 Losartan/Hydrochlorothiazide 1 each PO DAILY 12/04/18 [Losartan-Hctz 50-12.5 mg Tab] ASSESSMENT AND PLAN: 78 year old female with HTN, Spinal Stenosis, presents with R hip pain s/p mechanical fall, found to have acute R Intertrochanteric fracture. No preceding CP/palpitations/lightheadedness. No HI or LOC. XRAY Hip/Pelvis - R intertrochanteric Fracture with avulsion of lesser trochanter. 1. R hip fracture s/p Mechanical Orthopedics consulted - NPO for Surgery today Morphine analgesia ECG/CXR reviewed. Patient at moderate risk for proposed procedure. Felicia-op hydration, DVT Px, Incentive Spirometry. Post-op PT 2. Hyponatremia, likely secondary to Dehydration Improving with gentle hydration. 3. HTN - continue Amlodipine and Losartan. Hold HCTZ. 4. Acute Blood Loss Anemia - H/H drop from 12.5/37 to 9.1/26.3 sec to femur fracture +/- dilution. Will start Ferrous Sulfate and monitor H/H post-operatively. DVT Px - Heparin SQ
[2018-12-05] MEDS ORDERED: DOCUSATE SODIUM 100 MG CAPSULE (FP) PO PRN (16:53)
[2018-12-05] MEDS ORDERED: GLYCOPYRROLATE 0.2 MG/1 ML VIAL ONE (17:49)
[2018-12-05] MEDS ORDERED: NEOSTIGMINE METHYLSULFATE 0.5 MG/ML - 10 ML MDV ONE (17:50)
[2018-12-05] MEDS ORDERED: KETOROLAC TROMETHAMINE 30 MG/1 ML VIAL ONE (17:51)
--- NOTE | 2018-12-05 18:32 | OPR ---
DATE OF OPERATION: 12/05/18 TITLE OF OPERATION: RIGHT cephalomedullary nail fixation (CPT 63573) PREOPERATIVE DIAGNOSIS: RIGHT intertrochanteric hip fracture with subtrochanteric extension POSTOPERATIVE DIAGNOSIS: Same SURGEON: Elmer Zuniga DO CASE PREPARER AND LINER: Jose Chan DO ANESTHESIA: General anesthesia SPECIMEN: None PROSTHETIC DEVICE/IMPLANT: 125 degree x 380 mm x 11mm Nabor Gamma nail 95mm lag screw 65mm locking screw COMPLICATIONS: none EBL: 150mL INDICATIONS FOR SURGERY: Ms. Dietz is a 78 year old female who presented in the preoperative setting with a chief complaint of right hip fracture. Based on their pre-injury level of activity, surgical treatment was discussed. The risks and benefits of surgery and anesthesia were discussed in detail including but not limited to , pain, bleeding, blood clot, infection, scarring, damage to vessels and nerves, failure to obtain the desired result, failure to heal, failure to return to sport. Understanding the risks and benefits, Ms. Dietz and her family opted to proceed with surgical management. SURGEON'S NARRATIVE: The patient was seen in the preoperative area. Their RIGHT side was marked for surgery and consent was reviewed and signed. She was then brought back to the operating room. She was transferred to the OR table. All bony prominences were well padded. A time-out was held and all team members agreed on the operative side and planned procedure. Anesthesia was then induced. Preoperative prophylactic antibiotics were indicated and Ancef was given prior to and within one hour of any incision. Sequential compression devices were placed on the contralateral extremity for the duration of the case as part of a comprehensive DVT prophylaxis protocol consisting of intraoperative SCDs, early postoperative mobilization and Lovenox 40mg SQ Daily x 30 days for chemoprophylaxis. Under fluoroscopy, the fracture was reduced by traction and internal rotation with slight adduction. After reduction was achieved, the hip was prepped and draped in the usual sterile fashion with application of a shower curtain. A small incision was made over directly over the proximal aspect of the hip, centered over just proximal to the prominence of the tip of the greater trochanter. This was done using a 10 blade. It was carried through the skin and subcutaneous tissues. Further dissection was performed using the Aguilar scissors. The guide pin for the Gamma Nail System was then inserted from the tip of the greater trochanter and into the proximal femoral canal. The cannulated drill was then placed over the guidepin and used to make an opening in the proximal femur. The guidepin was then removed. The flexible guidewire was then inserted from the greater trochanter down the length of the femur to physeal line. A 125-degree long gamma nail of the appropriate length was then selected after pre-measuring for insertion. The femoral canal was then sequentially reamed to 12.5 mm. An 11mm x 380mm x 125 degree Gamma Nail was inserted over the guidewire and down the femoral canal into its appropriate position. The guidewire was then removed. Using the proximal targeting device, a 1.5-cm longitudinal incision was made directly over the lateral aspect of the proximal thigh using the 10 blade, with dissection using the hemostat to the lateral femur. A guidepin for the lag screw was then inserted from the lateral femur across the fracture site and into the femoral head and its appropriate position verified using C-arm guidance in both the AP and lateral planes. After pre-drilling, a 95-mm lag screw was then inserted over the guidepin and across the fracture site for definitive fixation. The guidepin was then removed. A set screw was then inserted into the top of the nail and completed turned, then turned back a half turn. The fracture site was appropriately compressed. The proximal targeting system was then removed. Using a freehand technique, one distal locking screws was then inserted into the nail. This was done using C-arm guidance. It was placed through 1.5-cm stab incisions over the lateral aspect of the femur, and were inserted after pre-drilling and pre-measuring. Appropriate position of the interlocking screws, the lag screw, the nail, and the fracture site was verified using C-arm guidance. Attention was then turned to closure. The incisions were copiously irrigated with sterile saline. Deep tissue was closed with 0 vicryl. Subcutaneous closure was achieved with 2-0 vicryl. Skin was closed with virgie. At closure , all needle counts and sponge counts were correct. The toes were warm and well- perfused at the end of the case, and she had Dopplerable DP pulses. The patient was then awoken and brought to the postoperative recovery room in stable condition. There was no complications immediately apparent. Jose Chan DO served as first-assist on the case as there were no qualified assistants or residents available. POSTOPERATIVE PLAN - Weightbearing as tolerated RLE; PT Daily. - Pain control as per medical team. - Comprehensive DVT prophylaxis consists of intraoperative SCDs, early postoperative mobilization and Lovenox 40mg SQ Daily x 30 days for chemoprophylaxis. - Dressing Change post op day 7 - DC Virgie post op day 14 - Follow-up as an outpatient in my office on post op day 14 (2 weeks from today) . Please make sure the patient has X-rays of the Pelvis and Right hip taken the day prior to her visit in my office, and is sent with a disc with images. Elmer Zuniga DO
[2018-12-05 19:40] LABS: BASO % 0.5 % (0-2.0); EOS % 0.4 % (0-4.5); HEMATOCRIT 26.1 % (32.4-45.2); HEMOGLOBIN 8.8 GM/dL (10.7-15.3); LYMPH % 5.8 % (8-40); MCH 30.7 pg (25.7-33.7); MCHC 33.7 g/dl (32.0-36.0); MEAN CELL VOLUME 91.2 fl (80-96); MEAN PLT VOLUME 7.4 fl (7.5-11.1); MONO % 3.7 % (3.8-10.2); NEUT % 89.6 % (42.8-82.8); PLATELET COUNT 187 K/MM3 (134-434); RBC 2.86 M/mm3 (3.60-5.2); RDW 13.9 % (11.6-15.6); WHITE BLOOD COUNT 10.4 K/mm3 (4.0-10.0)
[2018-12-05 20:26] LABS: BLOOD UREA NITROGEN 11.9 mg/dL (7-18); CALCIUM 8.3 mg/dL (8.5-10.1); CREATININE 0.7 mg/dL (0.55-1.3); POTASSIUM 3.7 mmol/L (3.5-5.1)
[2018-12-05] MEDS: FERROUS SO4 325 MG TABLET (FP) PO SCH (21:38)
[2018-12-05] MEDS: DOCUSATE SODIUM 100 MG CAPSULE (FP) PO SCH (21:38)
[2018-12-05] MEDS ORDERED: DOCUSATE SODIUM 100 MG CAPSULE (FP) PO SCH (22:00)
[2018-12-05] MEDS ORDERED: FERROUS SO4 325 MG TABLET (FP) PO SCH (22:00)
[2018-12-06] MEDS ORDERED: CEFAZOLIN 2 GM/D5W 2 GM/50 ML ML IVPB SCH
[2018-12-06] MEDS: CEFAZOLIN 2 GM/D5W 2 GM/50 ML ML IVPB SCH ×2 (01:12→09:00)
--- NOTE | 2018-12-06 08:41 | PN ---
Progress Note (short form) - Note Progress Note: ORTHOPEDIC SURGERY PROGRESS NOTE Department of Orthopedic Surgery SUBJECTIVE No acute events overnight. No complaints currently. Denies chest pain, shortness of breath, or calf pain. No nausea or vomiting. Tolerating oral intake. Pain controlled. Bilateral SCD's present. PHYSICAL EXAMINATION General: Alert, oriented, cooperative and no distress. Right Lower Extremity: Dressing clean/dry/intact; Skin intact, no lesions, rashes or ulcers noted. Muscle mass equal and symmetric to contralateral side. No atrophy noted. No masses or effusions noted. No tenderness to palpation. Full passive and active ROM, free from pain. EHL/TA/GS motor intact; SILT distally; 2+ DP pulses; Cap refill brisk. DVT Exam: No evidence of DVT seen on physical exam; No cords or calf tenderness ; No significant calf/ankle edema. Intake & Output 12/04/18 12/05/18 12/06/18 23:59 23:59 23:59 Intake Total 1240 1750 450 Output Total 100 1970 550 Balance 1140 -220 -100 Intake: IV 1000 1750 Normal Saline - 1,000 ml 1000 @ Wide Open IV ASDIR PORTILLO Rx#:[id number] IVPB 50 Oral 240 0 400 Output: Urine 100 1820 550 Malik 1570 550 Void 100 Estimated Blood Loss 150 Other: Voiding Method Bedpan Bedpan Indwelling Catheter Bowel Movement No No No Weight 141 lb 14.4 oz Height 5 ft 3 in Body Mass Index (BMI) 25.1 Weight Measurement Method [facility] Measurement Method Est/Stated by Patient Active Medications Generic Name Dose Route Start Last Admin Trade Name Freq PRN Reason Stop Dose Admin Amlodipine Besylate 5 mg 12/06/18 10:00 Norvasc - PO DAILY [facility] Docusate Sodium 100 mg 12/05/18 22:00 12/05/18 21:38 Colace - PO 100 mg BID [facility] Administration Enoxaparin Sodium 40 mg 12/06/18 10:00 Lovenox - SQ DAILY [facility] Fentanyl 50 mcg 12/05/18 19:02 Sublimaze Injection - IVPUSH [id number] PRN PAIN-PACU ORDER X 4 DOSES ONLY Ferrous Sulfate 325 mg 12/05/18 22:00 12/05/18 21:38 Feosol - PO 325 mg BID [facility] Administration Lactated Ringer's 1,000 mls @ 125 mls/hr 12/05/18 19:02 12/05/18 20:30 Lactated Ringers Solution IV 0 mls ASDIR PORTILLO Administration Sodium Chloride 1,000 mls @ 0 mls/hr 12/05/18 19:02 Normal Saline - IV ASDIR PORTILLO Wide Open Losartan Potassium 50 mg 12/06/18 10:00 Cozaar - PO DAILY [facility] Morphine Sulfate 2 mg 12/05/18 19:02 Morphine Sulfate IVPUSH Q4H PRN PAIN LEVEL 4 - 6 Ondansetron HCl 4 mg 12/05/18 19:02 12/06/18 06:55 Zofran Injection IVPUSH 4 mg Q6H PRN Administration NAUSEA Promethazine HCl 12.5 mg 12/05/18 19:02 Phenergan Injection - IVPB Q6H PRN NAUSEA-FOR RESCUE AFTER 15 MIN Vital Signs (last) Temp Pulse Resp BP Pulse Ox 98.2 F 96 H 18 118/55 L 100 12/06/18 06:02 12/06/18 06:02 12/06/18 08:00 12/06/18 06:02 12/06/18 08:00 Laboratory (coagulation) PT with INR 11.80 SEC (9.7-13.0) 12/05/18 06:20 Laboratory 12/05/18 18:50 12/05/18 18:50 ASSESSMENT AND PLAN Ms. Dietz is a 78 year old female s/p Right hip IMN Post op day (POD) 1 - Pain control: Transition to oral pain medications, minimize narcotic use - DVT prophylaxis (Lovenox 40mg SQ daily for 30 days) - Ice to right hip - Elevate HOB, encourage oral intake - Appreciate medical management (Nutrition optimization, incentive spirometer, decubitus precautions heel/sacrum) - Follow up AM labs. Transfuse if medically indicated. - PT Daily; WBAT RLE - KEITH Malik today when ambulatory - Dispo planning
[2018-12-06 08:49] LABS: BASO % 0.1 % (0-2.0); HEMATOCRIT 23.1 % (32.4-45.2); HEMOGLOBIN 7.9 GM/dL (10.7-15.3); LYMPH % 10.8 % (8-40); MCH 30.9 pg (25.7-33.7); MCHC 34.1 g/dl (32.0-36.0); MEAN CELL VOLUME 90.6 fl (80-96); MEAN PLT VOLUME 7.2 fl (7.5-11.1); MONO % 7.9 % (3.8-10.2); NEUT % 81.2 % (42.8-82.8); PLATELET COUNT 181 K/MM3 (134-434); RBC 2.55 M/mm3 (3.60-5.2)
[2018-12-06 09:16] LABS: ALBUMIN 2.8 g/dl (3.4-5.0); BILIRUBIN,TOTAL 0.8 mg/dL (0.2-1); BLOOD UREA NITROGEN 12.2 mg/dL (7-18); CALCIUM 8.2 mg/dL (8.5-10.1); CREATININE 0.7 mg/dL (0.55-1.3); MAGNESIUM 1.9 mg/dL (1.8-2.4); PHOSPHOROUS 3.4 mg/dL (2.5-4.9); POTASSIUM 4.4 mmol/L (3.5-5.1); TOT PROT 5.5 g/dl (6.4-8.2)
[2018-12-06] MEDS: FERROUS SO4 325 MG TABLET (FP) PO SCH ×3 (09:31→21:31)
[2018-12-06] MEDS: DOCUSATE SODIUM 100 MG CAPSULE (FP) PO SCH ×3 (09:31→21:31)
[2018-12-06] MEDS: amLODIPine BESYLATE 5 MG TABLET (FP) PO SCH (09:35)
[2018-12-06] MEDS: ENOXAPARIN NA (PORCINE) 40 MG/0.4 ML DISP.SYRIN SQ SCH (10:10)
[2018-12-06] MEDS: MORPHINE SULFATE 2 MG/ML VIAL IVPUSH PRN ×2 (10:10→16:43)
[2018-12-06] MEDS: LOSARTAN POTASSIUM 50 MG TABLET (FP) PO SCH (10:11)
--- NOTE | 2018-12-06 11:36 | PN ---
Progress Note (short form) - Note Progress Note: Anesthesia postop note 78 y/o F s/p GA for right hip gamma nail POD#1, vss, aaox3, no complaints. No anesthesia complications.
--- NOTE | 2018-12-06 13:00 | PN ---
Physical Exam: SUBJECTIVE: 78 y/o F PMH HTN and spinal stenosis whom presented to the ED s/p mechanical fall and admitted for surgical intervention, seen at bedside POD 1, MYRANDA 3 s/p ORIF of RIGHT femur. Pt tolerated surgery well, is passing gas today. She denies SOB, CP, and bleeding. Pt denies NVFD and chills. OBJECTIVE: Vital Signs Temp Pulse Resp BP Pulse Ox 99 F 104 H 18 107/57 L 90 L 12/06/18 10:56 12/06/18 10:56 12/06/18 10:56 12/06/18 10:56 12/06/18 09:00 GENERAL: The patient is awake, alert, and fully oriented, in no acute distress. HEAD: Normal with no signs of trauma. EYES: SALO, EOMI, sclera anicteric, conjunctiva clear. No ptosis. ENT: Ears normal, nares patent, oropharynx clear without exudates, moist mucous membranes. NECK: Trachea midline, full range of motion, supple. LUNGS: Breath sounds equal, clear to auscultation bilaterally, no wheezes, no crackles, no accessory muscle use. HEART: Regular rate and rhythm, S1, S2 without murmur, rub or gallop. ABDOMEN: Soft, nontender, nondistended, normoactive bowel sounds, no guarding, no rebound, no hepatosplenomegaly, no masses. EXTREMITIES: RIGHT hip surgical site tender to palpation. 2+ pulses, warm, well- perfused, no edema. NEUROLOGICAL: Cranial nerves III through XII grossly intact. Normal speech, gait not observed. PSYCH: Normal mood, normal affect. SKIN: Warm, dry, normal turgor, no rashes or lesions noted Laboratory Results - last 24 hr 12/05/18 12/05/18 12/06/18 18:50 18:50 07:43 WBC 10.4 H 7.0 RBC 2.86 L 2.55 L Hgb 8.8 L 7.9 L Hct 26.1 L 23.1 L MCV 91.2 90.6 MCH 30.7 30.9 MCHC 33.7 34.1 RDW 13.9 14.0 Plt Count 187 181 MPV 7.4 L 7.2 L Absolute Neuts (auto) 9.3 H 5.7 Neutrophils % 89.6 H D 81.2 Lymphocytes % 5.8 L D 10.8 D Monocytes % 3.7 L 7.9 D Eosinophils % 0.4 0.0 D Basophils % 0.5 0.1 Nucleated RBC % 0 0 Sodium 134 L Potassium 3.7 Chloride 100 Carbon Dioxide 25 Anion Gap 9 BUN 11.9 Creatinine 0.7 Est GFR (CKD-EPI)AfAm 95.51 Est GFR (CKD-EPI)NonAf 82.41 Random Glucose 122 H Calcium 8.3 L Phosphorus Magnesium Total Bilirubin AST ALT Alkaline Phosphatase Total Protein Albumin 12/06/18 07:43 WBC RBC Hgb Hct MCV MCH MCHC RDW Plt Count MPV Absolute Neuts (auto) Neutrophils % Lymphocytes % Monocytes % Eosinophils % Basophils % Nucleated RBC % Sodium 133 L Potassium 4.4 Chloride 99 Carbon Dioxide 26 Anion Gap 8 BUN 12.2 Creatinine 0.7 Est GFR (CKD-EPI)AfAm 95.51 Est GFR (CKD-EPI)NonAf 82.41 Random Glucose 121 H Calcium 8.2 L Phosphorus 3.4 Magnesium 1.9 Total Bilirubin 0.8 AST 22 ALT 12 L Alkaline Phosphatase 72 Total Protein 5.5 L Albumin 2.8 L Active Medications Amlodipine Besylate (Norvasc -) 5 mg PO DAILY [facility] Last Admin: 12/06/18 09:35 Dose: Not Given Docusate Sodium (Colace -) 100 mg PO BID [facility] Last Admin: 12/06/18 09:31 Dose: 100 mg Enoxaparin Sodium (Lovenox -) 40 mg SQ DAILY [facility] Last Admin: 12/06/18 10:10 Dose: 40 mg Fentanyl (Sublimaze Injection -) 50 mcg IVPUSH [id number] PRN PRN Reason: PAIN-PACU ORDER X 4 DOSES ONLY Ferrous Sulfate (Feosol -) 325 mg PO BID [facility] Last Admin: 12/06/18 09:31 Dose: 325 mg Lactated Ringer's (Lactated Ringers Solution) 1,000 mls @ 125 mls/hr IV ASDIR [facility] Last Admin: 12/05/18 20:30 Dose: 0 mls Sodium Chloride (Normal Saline -) 1,000 mls @ 0 mls/hr IV ASDIR [facility] Losartan Potassium (Cozaar -) 50 mg PO DAILY [facility] Last Admin: 12/06/18 10:11 Dose: 50 mg Morphine Sulfate (Morphine Sulfate) 2 mg IVPUSH Q4H PRN PRN Reason: PAIN LEVEL 4 - 6 Last Admin: 12/06/18 10:10 Dose: 2 mg Ondansetron HCl (Zofran Injection) 4 mg IVPUSH Q6H PRN PRN Reason: NAUSEA Last Admin: 12/06/18 06:55 Dose: 4 mg Promethazine HCl (Phenergan Injection -) 12.5 mg IVPB Q6H PRN PRN Reason: NAUSEA-FOR RESCUE AFTER 15 MIN ASSESSMENT/PLAN: 78 y/o F w PMH HTN and spinal stenosis that presented w RIGHT hip pain s/p mechanical fall, found to have acute RIGHT intertrochanteric fracture now s/p ORIF RIGHT femur POD 1. # RIGHT hip fracture s/p mechanical fall - Tolerated surgery well - Restart diet - DC valdes - Morphine for pain - d/c to acute rehab tomorrow (pt preference is [facility]) # Hyponatremia - Improved today/trending toward normal - Most likely d/t dehydration - Provide fluids # HTN - Cont. current regimen: Amlodipine and losartan. Cont. to hold HCTZ. # Acute Blood Loss Anemia - Poss d/t dilution. poss blood loss component. - Baseline around 8 on previous admissions - Start ferrous sulfate # F/E/N - No standing fluids; encouraged PO fluid intake - Low salt diet # DVT prophylaxis - SCD and Lovenox QD - Cont. 30 days Lovenox after d/c Kee Bright MD Visit type - Emergency Visit Emergency Visit: No - New Patient This patient is new to me today: No - Critical Care Critical Care patient: No - Discharge Referral Referred to [facility] No ATTENDING PHYSICIAN STATEMENT I saw and evaluated the patient. I reviewed the resident's note and discussed the case with the resident. I agree with the resident's findings and plan as documented. SUBJECTIVE: OBJECTIVE: ASSESSMENT AND PLAN:
--- NOTE | 2018-12-06 14:44 | PN ---
Teaching Attending Note Name of Resident: Kee Bright ATTENDING PHYSICIAN STATEMENT I saw and evaluated the patient. I reviewed the resident's note and discussed the case with the resident. I agree with the resident's findings and plan as documented. SUBJECTIVE: Reports ongoing R hip pain. No chest pain/palps/SOB. No fever/ chills. OBJECTIVE: Afebrile, Hemodynamicaly Stable. Last Vital Signs Temp Pulse Resp BP Pulse Ox 98.7 F 71 20 104/49 L 96 12/05/18 14:26 12/05/18 10:30 12/05/18 12:00 12/05/18 10:30 12/05/18 12:00 Heart- S1, S2, soft SM Lungs - clear to auscultation Abdomen - Soft, non-tender. Bowel Sounds normal. Extremities - bilateral varicosities, no calf tenderness. R leg shortened and externally rotated. Decreased ROM R hip due to pain. Laboratory Results - last 24 hr 12/04/18 12/04/18 12/05/18 13:42 20:40 06:20 WBC 4.8 RBC 2.92 L Hgb 9.1 L Hct 26.3 L D MCV 89.9 MCH 31.2 MCHC 34.6 RDW 13.3 Plt Count 201 D MPV 7.2 L Absolute Neuts (auto) 3.0 Neutrophils % 63.1 Lymphocytes % 25.5 D Monocytes % 10.1 Eosinophils % 0.9 Basophils % 0.4 Nucleated RBC % 0 PT with INR INR PTT (Actin FS) Sodium 129 L Potassium 4.1 Chloride 96 L Carbon Dioxide 24 Anion Gap 9 BUN 16.6 Creatinine 0.9 Est GFR (CKD-EPI)AfAm 70.48 Est GFR (CKD-EPI)NonAf 60.81 Random Glucose 171 H Calcium 8.3 L Magnesium Total Bilirubin AST ALT Alkaline Phosphatase Total Protein Albumin Antibody Identification No Result Required. Antigen Identification No Result Required. 12/05/18 12/05/18 06:20 06:20 WBC RBC Hgb Hct MCV MCH MCHC RDW Plt Count MPV Absolute Neuts (auto) Neutrophils % Lymphocytes % Monocytes % Eosinophils % Basophils % Nucleated RBC % PT with INR 11.80 INR 1.00 PTT (Actin FS) 27.6 Sodium 132 L Potassium 4.0 Chloride 99 Carbon Dioxide 24 Anion Gap 8 BUN 13.1 Creatinine 0.7 Est GFR (CKD-EPI)AfAm 95.51 Est GFR (CKD-EPI)NonAf 82.41 Random Glucose 99 Calcium 8.4 L Magnesium 2.0 Total Bilirubin 1.0 AST 20 ALT 11 L Alkaline Phosphatase 80 Total Protein 5.5 L Albumin 2.9 L Antibody Identification Antigen Identification Current Medications Generic Name Dose Route Start Last Admin Trade Name Freq PRN Reason Stop Dose Admin Amlodipine Besylate 5 mg 12/05/18 10:00 12/05/18 09:11 Norvasc - PO Not Given DAILY [facility] Fentanyl 50 mcg 12/05/18 15:06 Sublimaze Injection - IVPUSH [id number] PRN PAIN-PACU ORDER X 4 DOSES ONLY Heparin Sodium (Porcine) 5,000 unit 12/04/18 22:00 12/05/18 05:30 Heparin - SQ Not Given TID PORTILLO Sodium Chloride 1,000 mls @ 0 mls/hr 12/04/18 14:00 12/04/18 15:44 Normal Saline - IV 1,000 mls/hr ASDIR PORTILLO Administration Wide Open Lactated Ringer's 1,000 mls @ 125 mls/hr 12/05/18 15:15 Lactated Ringers Solution IV ASDIR PORTILLO Losartan Potassium 50 mg 12/05/18 10:00 12/05/18 09:11 Cozaar - PO Not Given DAILY [facility] Morphine Sulfate 2 mg 12/05/18 10:34 12/05/18 12:48 Morphine Sulfate IVPUSH 2 mg Q4H PRN Administration PAIN LEVEL 4 - 6 Ondansetron HCl 4 mg 12/04/18 16:43 12/04/18 18:22 Zofran Injection IVPUSH 4 mg Q6H PRN Administration NAUSEA Ondansetron HCl 4 mg 12/05/18 15:06 Zofran Injection IVPUSH Q6H PRN NAUSEA AND/OR VOMITING Promethazine HCl 12.5 mg 12/05/18 15:06 Phenergan Injection - IVPB Q6H PRN NAUSEA-FOR RESCUE AFTER 15 MIN Home Medications Medication Instructions Recorded Ascorbate Calcium [Vitamin C] 500 mg PO DAILY 03/24/14 Ferrous Sulfate [Feosol] 325 mg PO DAILY 03/24/14 Amlodipine Besylate [Norvasc -] 5 mg PO DAILY 12/04/18 Losartan/Hydrochlorothiazide 1 each PO DAILY 12/04/18 [Losartan-Hctz 50-12.5 mg Tab] ASSESSMENT AND PLAN: 78 year old female with HTN, Spinal Stenosis, presents with R hip pain s/p mechanical fall, found to have acute R Intertrochanteric fracture. No preceding CP/palpitations/lightheadedness. No HI or LOC. XRAY Hip/Pelvis - R intertrochanteric Fracture with avulsion of lesser trochanter. 1. R hip fracture s/p Mechanical Fall POD 1 s/p Gamma Nail proceudre R femur. Felicia-op hydration, DVT Px (Lovenox SQ), Incentive Spirometry. PT Remove valdes Transfer to Acute Rehab tomorrow. 2. Hyponatremia, likely secondary to Dehydration Improving with gentle hydration. 3. HTN - continue Amlodipine and Losartan. HCTZ held. 4. Acute Blood Loss Anemia sec to Femur fracture/Orthopedic Surgery Started on Ferrous Sulfate - will monitor H/H post-operatively. DVT Px - Lovenox SQ (for 30 days)
[2018-12-06 17:20] LABS: BASO % 0.2 % (0-2.0); EOS % 0.2 % (0-4.5); HEMOGLOBIN 8.2 GM/dL (10.7-15.3); LYMPH % 11.1 % (8-40); MCHC 34.3 g/dl (32.0-36.0); MEAN CELL VOLUME 90.4 fl (80-96); MEAN PLT VOLUME 7.5 fl (7.5-11.1); MONO % 9.1 % (3.8-10.2); NEUT % 79.4 % (42.8-82.8); PLATELET COUNT 225 K/MM3 (134-434); RBC 2.66 M/mm3 (3.60-5.2); RDW 13.7 % (11.6-15.6)
[2018-12-06] MEDS: SODIUM CHLORIDE 1,000 ML IV SCH ×2 (21:29→21:32)
[2018-12-06] MEDS ORDERED: ACETAMINOPHEN 325 MG TABLET (FP) PO ONE (22:36)
--- NOTE | 2018-12-07 08:20 | PN ---
Progress Note (short form) - Note Progress Note: ORTHOPEDIC SURGERY PROGRESS NOTE Department of Orthopedic Surgery SUBJECTIVE No acute events overnight. No complaints currently. Denies chest pain, shortness of breath, or calf pain. No nausea or vomiting. Tolerating oral intake. Pain controlled. Bilateral SCD's present. Was OOBTC yesterday and able to ambulate 8 ft with PT. PHYSICAL EXAMINATION General: Alert, oriented, cooperative and no distress. Right Lower Extremity: Dressing clean/dry/intact; Skin intact, no lesions, rashes or ulcers noted. Muscle mass equal and symmetric to contralateral side. No atrophy noted. No masses or effusions noted. No tenderness to palpation. Full passive and active ROM, free from pain. EHL/TA/GS motor intact; SILT distally; 2+ DP pulses; Cap refill brisk. DVT Exam: No evidence of DVT seen on physical exam; No cords or calf tenderness ; No significant calf/ankle edema. Intake & Output 12/05/18 12/06/18 12/07/18 23:59 23:59 23:59 Intake Total 1750 1430 Output Total 1970 550 Balance -220 880 Intake: IV 1750 IVPB 100 Oral 0 1330 Output: Urine 1820 550 Malik 1570 550 Void 0 Estimated Blood Loss 150 Other: Voiding Method Bedpan Incontinent # Unmeasured Voids Void 200 Bowel Movement No No Active Medications Generic Name Dose Route Start Last Admin Trade Name Freq PRN Reason Stop Dose Admin Amlodipine Besylate 5 mg 12/06/18 10:00 12/06/18 09:35 Norvasc - PO Not Given DAILY [facility] Docusate Sodium 100 mg 12/05/18 22:00 12/06/18 21:31 Colace - PO Not Given BID [facility] Enoxaparin Sodium 40 mg 12/06/18 10:00 12/06/18 10:10 Lovenox - SQ 40 mg DAILY [facility] Administration Fentanyl 50 mcg 12/05/18 19:02 Sublimaze Injection - IVPUSH [id number] PRN PAIN-PACU ORDER X 4 DOSES ONLY Ferrous Sulfate 325 mg 12/05/18 22:00 12/06/18 21:31 Feosol - PO Not Given BID [facility] Sodium Chloride 1,000 mls @ 0 mls/hr 12/05/18 19:02 12/06/18 21:32 Normal Saline - IV 1,000 mls/hr ASDIR OPRTILLO Administration Wide Open Losartan Potassium 50 mg 12/06/18 10:00 12/06/18 10:11 Cozaar - PO 50 mg DAILY [facility] Administration Morphine Sulfate 2 mg 12/05/18 19:02 12/06/18 16:43 Morphine Sulfate IVPUSH 2 mg Q4H PRN Administration PAIN LEVEL 4 - 6 Ondansetron HCl 4 mg 12/05/18 19:02 12/06/18 06:55 Zofran Injection IVPUSH 4 mg Q6H PRN Administration NAUSEA Promethazine HCl 12.5 mg 12/05/18 19:02 Phenergan Injection - IVPB Q6H PRN NAUSEA-FOR RESCUE AFTER 15 MIN Vital Signs (last) Temp Pulse Resp BP Pulse Ox 98.0 F 95 H 15 125/66 97 12/07/18 07:54 12/07/18 07:54 12/07/18 07:54 12/07/18 07:54 12/06/18 21:00 Laboratory (coagulation) PT with INR 11.80 SEC (9.7-13.0) 12/05/18 06:20 Laboratory 12/06/18 16:30 12/06/18 07:43 ASSESSMENT AND PLAN Ms. Dietz is a 78 year old female s/p Right hip IMN Post op day (POD) 2 - Pain control: Transition to oral pain medications, minimize narcotic use - DVT prophylaxis (Lovenox 40mg SQ daily for 30 days) - Ice to right hip - Dressing Change post op day 7 - DC Virgie post op day 14 - Follow-up as an outpatient in my office on post op day 14 (2 weeks from date of surgery). - Please make sure the patient has X-rays of the Pelvis and Right hip taken the day prior to her visit in my office, and is sent with a disc with images. - Elevate HOB, encourage oral intake - Appreciate medical management (Nutrition optimization, incentive spirometer, decubitus precautions heel/sacrum) - Follow up AM labs. Transfuse if medically indicated. - PT Daily; WBAT RLE - Dispo planning
[2018-12-07] MEDS: MORPHINE SULFATE 2 MG/ML VIAL IVPUSH PRN (09:25)
[2018-12-07] MEDS: ENOXAPARIN NA (PORCINE) 40 MG/0.4 ML DISP.SYRIN SQ SCH (09:28)
[2018-12-07] MEDS: DOCUSATE SODIUM 100 MG CAPSULE (FP) PO SCH ×3 (09:30→21:40)
[2018-12-07] MEDS: FERROUS SO4 325 MG TABLET (FP) PO SCH ×2 (09:41→21:37)
[2018-12-07] MEDS: amLODIPine BESYLATE 5 MG TABLET (FP) PO SCH (10:23)
[2018-12-07] MEDS: LOSARTAN POTASSIUM 50 MG TABLET (FP) PO SCH (10:23)
[2018-12-07] MEDS ORDERED: FUROSEMIDE 40 MG/4 ML INJECTABLE VIAL IVPUSH ONE ×2 (11:14→17:09)
[2018-12-07 11:17] LABS: BASO % 0.2 % (0-2.0); EOS % 0.7 % (0-4.5); HEMATOCRIT 21.6 % (32.4-45.2); HEMOGLOBIN 7.5 GM/dL (10.7-15.3); LYMPH % 12.6 % (8-40); MCH 31.3 pg (25.7-33.7); MCHC 34.7 g/dl (32.0-36.0); MEAN CELL VOLUME 90.3 fl (80-96); MEAN PLT VOLUME 7.2 fl (7.5-11.1); MONO % 7.9 % (3.8-10.2); NEUT % 78.6 % (42.8-82.8); PLATELET COUNT 215 K/MM3 (134-434); RBC 2.39 M/mm3 (3.60-5.2); RDW 13.5 % (11.6-15.6)
--- NOTE | 2018-12-07 11:37 | EKG ---
Test Reason : Blood Pressure : / mmHG Vent. Rate : 103 BPM Atrial Rate : 103 BPM P-R Int : 192 ms QRS Dur : 088 ms QT Int : 366 ms P-R-T Axes : 002 065 015 degrees QTc Int : 479 ms POOR DATA QUALITY, INTERPRETATION MAY BE ADVERSELY AFFECTED SINUS TACHYCARDIA WITH PREMATURE ATRIAL COMPLEXES WITH ABERRANT CONDUCTION NONSPECIFIC ST AND T WAVE ABNORMALITY ABNORMAL ECG Confirmed by LELE MURRAY MD ([id number]) on 12/07/2018 11:37:18 AM Referred By: Confirmed By:LELE MURRAY MD
--- NOTE | 2018-12-07 13:20 | PN ---
Physical Exam: SUBJECTIVE: 78 y/o F PMH HTN and spinal stenosis whom presented to the ED s/p mechanical fall and admitted for surgical intervention, seen at bedside POD 2, MYRANDA 4 s/p ORIF of RIGHT femur. Pt tolerated surgery well, is passing gas today, passing urine w/o concern, however no BM yet. Overnight the pt reported chest pain. EKG and troponins were negative. She denies SOB, QUIROZ, vision change, and bleeding. Pt denies NVFD and chills. OBJECTIVE: Vital Signs Temp Pulse Resp BP Pulse Ox 98.1 F 96 H 15 118/60 98 12/07/18 13:05 12/07/18 13:05 12/07/18 13:05 12/07/18 13:05 12/07/18 13:12 GENERAL: The patient is awake, alert, and fully oriented, in no acute distress. HEAD: Normal with no signs of trauma. EYES: SALO, EOMI, sclera anicteric, conjunctiva clear. No ptosis. ENT: Ears normal, nares patent, oropharynx clear without exudates, moist mucous membranes. NECK: Trachea midline, full range of motion, supple. LUNGS: Breath sounds equal, clear to auscultation bilaterally, no wheezes, no crackles, no accessory muscle use. HEART: Regular rate and rhythm, S1, S2 without murmur, rub or gallop. ABDOMEN: Soft, nontender, nondistended, normoactive bowel sounds, no guarding, no rebound, no hepatosplenomegaly, no masses. EXTREMITIES: RIGHT hip surgical site tender to palpation. 2+ pulses, warm, well- perfused, no edema. NEUROLOGICAL: Cranial nerves III through XII grossly intact. Normal speech, gait not observed. PSYCH: Normal mood, normal affect. SKIN: Warm, dry, normal turgor, no rashes or lesions noted Laboratory Results - last 24 hr 12/04/18 12/06/18 12/07/18 13:42 16:30 00:05 WBC 9.0 RBC 2.66 L Hgb 8.2 L Hct 24.0 L MCV 90.4 MCH 31.0 MCHC 34.3 RDW 13.7 Plt Count 225 D MPV 7.5 Absolute Neuts (auto) 7.2 Neutrophils % 79.4 Lymphocytes % 11.1 Monocytes % 9.1 Eosinophils % 0.2 D Basophils % 0.2 Nucleated RBC % 0 Troponin I < 0.02 Crossmatch See Detail 12/07/18 10:20 WBC 9.0 RBC 2.39 L Hgb 7.5 L Hct 21.6 L MCV 90.3 MCH 31.3 MCHC 34.7 RDW 13.5 Plt Count 215 MPV 7.2 L Absolute Neuts (auto) 7.1 Neutrophils % 78.6 Lymphocytes % 12.6 Monocytes % 7.9 Eosinophils % 0.7 D Basophils % 0.2 Nucleated RBC % 0 Troponin I Crossmatch Active Medications Amlodipine Besylate (Norvasc -) 5 mg PO DAILY [facility] Last Admin: 12/07/18 10:23 Dose: 5 mg Docusate Sodium (Colace -) 100 mg PO BID [facility] Last Admin: 12/07/18 09:42 Dose: 100 mg Enoxaparin Sodium (Lovenox -) 40 mg SQ DAILY [facility] Last Admin: 12/07/18 09:28 Dose: 40 mg Fentanyl (Sublimaze Injection -) 50 mcg IVPUSH [id number] PRN PRN Reason: PAIN-PACU ORDER X 4 DOSES ONLY Ferrous Sulfate (Feosol -) 325 mg PO BID [facility] Last Admin: 12/07/18 09:41 Dose: 325 mg Losartan Potassium (Cozaar -) 50 mg PO DAILY [facility] Last Admin: 12/07/18 10:23 Dose: 50 mg Morphine Sulfate (Morphine Sulfate) 2 mg IVPUSH Q4H PRN PRN Reason: PAIN LEVEL 4 - 6 Last Admin: 12/07/18 09:25 Dose: 2 mg Ondansetron HCl (Zofran Injection) 4 mg IVPUSH Q6H PRN PRN Reason: NAUSEA Last Admin: 12/06/18 06:55 Dose: 4 mg Promethazine HCl (Phenergan Injection -) 12.5 mg IVPB Q6H PRN PRN Reason: NAUSEA-FOR RESCUE AFTER 15 MIN ASSESSMENT/PLAN: 78 y/o F w PMH HTN and spinal stenosis that presented w RIGHT hip pain s/p mechanical fall, found to have acute RIGHT intertrochanteric fracture now s/p ORIF RIGHT femur POD 2, and low Hb. # Acute Blood Loss Anemia - Poss d/t dilution. poss blood loss component. - H/H dropped to 7.5/21.6 - Pt transfused w 1 unit PRBCs (with Lasix) - Baseline around 8 on previous admissions - Start ferrous sulfate # RIGHT hip fracture s/p mechanical fall - POD 2 gamma nail ORIF, no complaints - Restart diet - Morphine for pain - Inceptive spirometry - Acute rehab placement [facility] upon d/c - Post surgical care: POD 7 dressing change, POD 13 imaging of hip, and staple removal POD 14 # HTN - Cont. current regimen: Amlodipine and losartan. Cont. to hold HCTZ. # F/E/N - NS - Follow electrolytes - Low salt diet # DVT prophylaxis - SCD and Lovenox QD - Cont. 30 days Lovenox after d/c Kee Bright MD Visit type - Emergency Visit Emergency Visit: No - New Patient This patient is new to me today: No - Critical Care Critical Care patient: No - Discharge Referral Referred to [facility] No ATTENDING PHYSICIAN STATEMENT I saw and evaluated the patient. I reviewed the resident's note and discussed the case with the resident. I agree with the resident's findings and plan as documented. SUBJECTIVE: OBJECTIVE: ASSESSMENT AND PLAN:
--- NOTE | 2018-12-07 16:56 | PN ---
Teaching Attending Note Name of Resident: Kee Bright ATTENDING PHYSICIAN STATEMENT I saw and evaluated the patient. I reviewed the resident's note and discussed the case with the resident. I agree with the resident's findings and plan as documented. SUBJECTIVE: Reports some ongoing R hip pain. No chest pain/palps/SOB. No fever/ chills. Passed flatus. Tolerating PT, walked 8 feet. OBJECTIVE: Afebrile, Hemodynamicaly Stable. Last Vital Signs Temp Pulse Resp BP Pulse Ox 97.9 F 95 H 15 127/59 L 98 12/07/18 16:34 12/07/18 16:34 12/07/18 16:34 12/07/18 16:34 12/07/18 13:12 Heart- S1, S2, soft SM Lungs - clear to auscultation Abdomen - Soft, non-tender. Bowel Sounds normal. Extremities - bilateral varicosities, no calf tenderness. Surgical site dressed - dressing clean/dry/intact. Good ROM Laboratory Results - last 24 hr 12/04/18 12/06/18 12/07/18 13:42 16:30 00:05 WBC 9.0 RBC 2.66 L Hgb 8.2 L Hct 24.0 L MCV 90.4 MCH 31.0 MCHC 34.3 RDW 13.7 Plt Count 225 D MPV 7.5 Absolute Neuts (auto) 7.2 Neutrophils % 79.4 Lymphocytes % 11.1 Monocytes % 9.1 Eosinophils % 0.2 D Basophils % 0.2 Nucleated RBC % 0 Troponin I < 0.02 Blood Type B POSITIVE Antibody Screen Positive Antibody Identification Antigen Identification Crossmatch See Detail 12/07/18 12/07/18 10:20 13:30 WBC 9.0 RBC 2.39 L Hgb 7.5 L Hct 21.6 L MCV 90.3 MCH 31.3 MCHC 34.7 RDW 13.5 Plt Count 215 MPV 7.2 L Absolute Neuts (auto) 7.1 Neutrophils % 78.6 Lymphocytes % 12.6 Monocytes % 7.9 Eosinophils % 0.7 D Basophils % 0.2 Nucleated RBC % 0 Troponin I Blood Type B POSITIVE Antibody Screen Positive Antibody Identification Anti-c Antigen Identification No Result Required. Crossmatch Current Medications Generic Name Dose Route Start Last Admin Trade Name Freq PRN Reason Stop Dose Admin Amlodipine Besylate 5 mg 12/06/18 10:00 12/07/18 10:23 Norvasc - PO 5 mg DAILY [facility] Administration Docusate Sodium 100 mg 12/05/18 22:00 12/07/18 09:42 Colace - PO 100 mg BID [facility] Administration Enoxaparin Sodium 40 mg 12/06/18 10:00 12/07/18 09:28 Lovenox - SQ 40 mg DAILY [facility] Administration Fentanyl 50 mcg 12/05/18 19:02 Sublimaze Injection - IVPUSH [id number] PRN PAIN-PACU ORDER X 4 DOSES ONLY Ferrous Sulfate 325 mg 12/05/18 22:00 12/07/18 09:41 Feosol - PO 325 mg BID [facility] Administration Losartan Potassium 50 mg 12/06/18 10:00 12/07/18 10:23 Cozaar - PO 50 mg DAILY [facility] Administration Morphine Sulfate 2 mg 12/05/18 19:02 12/07/18 09:25 Morphine Sulfate IVPUSH 2 mg Q4H PRN Administration PAIN LEVEL 4 - 6 Ondansetron HCl 4 mg 12/05/18 19:02 12/06/18 06:55 Zofran Injection IVPUSH 4 mg Q6H PRN Administration NAUSEA Promethazine HCl 12.5 mg 12/05/18 19:02 Phenergan Injection - IVPB Q6H PRN NAUSEA-FOR RESCUE AFTER 15 MIN Home Medications Medication Instructions Recorded Ascorbate Calcium [Vitamin C] 500 mg PO DAILY 03/24/14 Ferrous Sulfate [Feosol] 325 mg PO DAILY 03/24/14 Amlodipine Besylate [Norvasc -] 5 mg PO DAILY 12/04/18 Losartan/Hydrochlorothiazide 1 each PO DAILY 12/04/18 [Losartan-Hctz 50-12.5 mg Tab] ASSESSMENT AND PLAN: 78 year old female with HTN, Spinal Stenosis, presents with R hip pain s/p mechanical fall, found to have acute R Intertrochanteric fracture. No preceding CP/palpitations/lightheadedness. No HI or LOC. XRAY Hip/Pelvis - R intertrochanteric Fracture with avulsion of lesser trochanter. 1. R hip fracture s/p Mechanical Fall POD 2 s/p Gamma Nail proceudre R femur. Felicia-op hydration, DVT Px (Lovenox SQ), Incentive Spirometry. PT Transfer to Acute Rehab tomorrow. Post surgical care as per Surgery including sressing change POD 7 and Staple removal Day 14. 2. 4. Acute Blood Loss Anemia sec to Femur fracture/Orthopedic Surgery H/H dropped to 7.5/21.6 - will transfuse 1 unit PRBCs (with Lasix) Started on Ferrous Sulfate - will monitor H/H post-operatively. 3. HTN - continue Amlodipine and Losartan. HCTZ held. DVT Px - Lovenox SQ (for 30 days)
[2018-12-07 20:21] LABS: BASO % 0.3 % (0-2.0); EOS % 0.8 % (0-4.5); HEMATOCRIT 26.4 % (32.4-45.2); HEMOGLOBIN 9.1 GM/dL (10.7-15.3); LYMPH % 12.7 % (8-40); MCH 31.2 pg (25.7-33.7); MCHC 34.6 g/dl (32.0-36.0); MEAN CELL VOLUME 90.2 fl (80-96); MONO % 10.3 % (3.8-10.2); NEUT % 75.9 % (42.8-82.8); PLATELET COUNT 187 K/MM3 (134-434); RBC 2.93 M/mm3 (3.60-5.2); RDW 13.8 % (11.6-15.6); WHITE BLOOD COUNT 7.8 K/mm3 (4.0-10.0)
[2018-12-08 06:04] VITALS: BP 138/84; PULSE 82; TEMP 98.9
[2018-12-08 09:33] LABS: ALBUMIN 2.6 g/dl (3.4-5.0); BILIRUBIN,TOTAL 1.4 mg/dL (0.2-1); BLOOD UREA NITROGEN 10.2 mg/dL (7-18); CALCIUM 8.2 mg/dL (8.5-10.1); CREATININE 0.6 mg/dL (0.55-1.3); MAGNESIUM 1.9 mg/dL (1.8-2.4); PHOSPHOROUS 2.6 mg/dL (2.5-4.9); POTASSIUM 3.7 mmol/L (3.5-5.1); TOT PROT 5.6 g/dl (6.4-8.2)
[2018-12-08 09:43] LABS: BASO % 0.4 % (0-2.0); EOS % 1.3 % (0-4.5); HEMATOCRIT 25.5 % (32.4-45.2); HEMOGLOBIN 8.9 GM/dL (10.7-15.3); LYMPH % 13.8 % (8-40); MCH 30.8 pg (25.7-33.7); MCHC 34.8 g/dl (32.0-36.0); MEAN CELL VOLUME 88.5 fl (80-96); MEAN PLT VOLUME 6.9 fl (7.5-11.1); MONO % 7.5 % (3.8-10.2); PLATELET COUNT 213 K/MM3 (134-434); RBC 2.88 M/mm3 (3.60-5.2); RDW 13.8 % (11.6-15.6); WHITE BLOOD COUNT 6.1 K/mm3 (4.0-10.0)
[2018-12-08] MEDS ORDERED: PT OWN MED DRAWER 7, Y5N ONE (09:46)
[2018-12-08] MEDS: ENOXAPARIN NA (PORCINE) 40 MG/0.4 ML DISP.SYRIN SQ SCH (09:48)
[2018-12-08] MEDS: DOCUSATE SODIUM 100 MG CAPSULE (FP) PO SCH (09:48)
[2018-12-08] MEDS: LOSARTAN POTASSIUM 50 MG TABLET (FP) PO SCH (09:48)
[2018-12-08] MEDS: FERROUS SO4 325 MG TABLET (FP) PO SCH (09:48)
[2018-12-08] MEDS: amLODIPine BESYLATE 5 MG TABLET (FP) PO SCH (09:48)
[2018-12-08] MEDS: MORPHINE SULFATE 2 MG/ML VIAL IVPUSH PRN (09:59)
--- NOTE | 2018-12-08 14:54 | PN ---
Teaching Attending Note Name of Resident: Ana Palomo ATTENDING PHYSICIAN STATEMENT I saw and evaluated the patient. I reviewed the resident's note and discussed the case with the resident. I agree with the resident's findings and plan as documented. SUBJECTIVE: Reports some ongoing R hip pain, cooperating with PT. No chest pain/ palps/SOB. No fever/chills. OBJECTIVE: Afebrile, Hemodynamicaly Stable. Last Vital Signs Temp Pulse Resp BP Pulse Ox 98.9 F 82 18 138/84 97 12/08/18 06:00 12/08/18 06:00 12/08/18 09:00 12/08/18 06:00 12/08/18 09:00 Heart- S1, S2, soft SM Lungs - clear to auscultation Abdomen - Soft, non-tender. Bowel Sounds normal. Extremities - bilateral varicosities, no calf tenderness. Surgical site dressed - dressing clean/dry/intact. Good ROM Laboratory Results - last 24 hr 12/07/18 12/07/18 12/08/18 13:30 19:25 08:20 WBC 7.8 6.1 RBC 2.93 L 2.88 L Hgb 9.1 L 8.9 L Hct 26.4 L D 25.5 L MCV 90.2 88.5 MCH 31.2 30.8 MCHC 34.6 34.8 RDW 13.8 13.8 Plt Count 187 213 MPV 7.0 L 6.9 L Absolute Neuts (auto) 5.9 4.7 Neutrophils % 75.9 77.0 Lymphocytes % 12.7 13.8 Monocytes % 10.3 H 7.5 Eosinophils % 0.8 1.3 Basophils % 0.3 0.4 Nucleated RBC % 0 0 Sodium Potassium Chloride Carbon Dioxide Anion Gap BUN Creatinine Est GFR (CKD-EPI)AfAm Est GFR (CKD-EPI)NonAf Random Glucose Calcium Phosphorus Magnesium Total Bilirubin AST ALT Alkaline Phosphatase Total Protein Albumin Blood Type B POSITIVE Antibody Screen Positive Antibody Identification Anti-c Antigen Identification No Result Required. 12/08/18 08:20 WBC RBC Hgb Hct MCV MCH MCHC RDW Plt Count MPV Absolute Neuts (auto) Neutrophils % Lymphocytes % Monocytes % Eosinophils % Basophils % Nucleated RBC % Sodium 133 L Potassium 3.7 Chloride 98 Carbon Dioxide 28 Anion Gap 8 BUN 10.2 Creatinine 0.6 Est GFR (CKD-EPI)AfAm 100.48 Est GFR (CKD-EPI)NonAf 86.69 Random Glucose 125 H Calcium 8.2 L Phosphorus 2.6 Magnesium 1.9 Total Bilirubin 1.4 H AST 27 ALT 14 Alkaline Phosphatase 82 Total Protein 5.6 L Albumin 2.6 L Blood Type Antibody Screen Antibody Identification Antigen Identification Discharge Medications Medication Instructions Recorded Ascorbate Calcium [Vitamin C] 500 mg PO DAILY 03/24/14 Amlodipine Besylate [Norvasc -] 5 mg PO DAILY 12/04/18 Chlorhexidine Gluconate [Peridex -] 1 unit DAILY 12/05/18 Losartan/Hydrochlorothiazide 1 each PO DAILY 12/05/18 [Losartan-Hctz 100-12.5 mg Tab] Docusate Sodium [Colace -] 100 mg PO BID capsule 12/08/18 Enoxaparin [Lovenox -] 40 mg SQ DAILY 30 Days disp.syrin 12/08/18 Ferrous Sulfate [Feosol] 325 mg PO BID ud 12/08/18 ASSESSMENT AND PLAN: 78 year old female with HTN, Spinal Stenosis, presents with R hip pain s/p mechanical fall, found to have acute R Intertrochanteric fracture. No preceding CP/palpitations/lightheadedness. No HI or LOC. XRAY Hip/Pelvis - R intertrochanteric Fracture with avulsion of lesser trochanter. 1. R hip fracture s/p Mechanical Fall POD 3 s/p Gamma Nail proceudre R femur. Felicia-op hydration, DVT Px (Lovenox SQ), Incentive Spirometry. PT Transfer to Acute Rehab tomorrow. Post surgical care as per Surgery including dressing change POD 7 and Staple removal Day 14. 2. Acute Blood Loss Anemia sec to Femur fracture/Orthopedic Surgery H/H dropped to 7.5/21.6 - now 8.9/25 s/p 1 unit PRBCs (with Lasix coverage) Started on Ferrous Sulfate. 3. HTN - continue Amlodipine and Losartan/HCTZ DVT Px - Lovenox SQ (for 30 days) Medically optimized for transfer to SNF/Rehab
--- NOTE | 2018-12-08 18:38 | DS ---
Physical Exam: SUBJECTIVE: Patient seen and examined at bedside this morning. No acute events overnight. Patient reports feeling well this morning. CBC stable. OBJECTIVE: Vital Signs Temperature 98.9 F 12/08/18 06:00 Pulse Rate 82 12/08/18 06:00 Respiratory Rate 18 12/08/18 09:00 Blood Pressure 138/84 12/08/18 06:00 O2 Sat by Pulse Oximetry (%) 97 12/08/18 09:00 PHYSICAL EXAM GENERAL: The patient is awake, alert, and fully oriented, in no acute distress. ENT: moist mucous membranes. NECK: Trachea midline, full range of motion, supple. LUNGS: Breath sounds equal, clear to auscultation bilaterally. HEART: Regular rate and rhythm, S1, S2 without murmur, rub or gallop. ABDOMEN: Soft, nontender, nondistended, normoactive bowel sounds. EXTREMITIES: 2+ pulses, warm, well-perfused, no edema. NEUROLOGICAL: Cranial nerves II through XII grossly intact. Normal speech, gait not observed. PSYCH: Normal mood, normal affect. SKIN: Warm, dry, normal turgor, no rashes or lesions noted. LABS Laboratory Results - last 24 hr 12/07/18 12/08/18 12/08/18 19:25 08:20 08:20 WBC 7.8 6.1 RBC 2.93 L 2.88 L Hgb 9.1 L 8.9 L Hct 26.4 L D 25.5 L MCV 90.2 88.5 MCH 31.2 30.8 MCHC 34.6 34.8 RDW 13.8 13.8 Plt Count 187 213 MPV 7.0 L 6.9 L Absolute Neuts (auto) 5.9 4.7 Neutrophils % 75.9 77.0 Lymphocytes % 12.7 13.8 Monocytes % 10.3 H 7.5 Eosinophils % 0.8 1.3 Basophils % 0.3 0.4 Nucleated RBC % 0 0 Sodium 133 L Potassium 3.7 Chloride 98 Carbon Dioxide 28 Anion Gap 8 BUN 10.2 Creatinine 0.6 Est GFR (CKD-EPI)AfAm 100.48 Est GFR (CKD-EPI)NonAf 86.69 Random Glucose 125 H Calcium 8.2 L Phosphorus 2.6 Magnesium 1.9 Total Bilirubin 1.4 H AST 27 ALT 14 Alkaline Phosphatase 82 Total Protein 5.6 L Albumin 2.6 L HOSPITAL COURSE: Date of Admission:12/04/18 Date of Discharge: 12/08/18 Patient is a 78 year old female with past medical history of HTN and spinal stenosis, presented to the ED after a fall and was found to have a right intertrochanteric fracture. Patient was evaluated by orthopedic surgery and RIGHT cephalomedullary nail fixation was done. Post-operatively, patient was noted to be anemic and 1 unit pRBC was transfused. Patient remained stable the rest of her hospital stay. She was discharged to [place] to continue rehab. Patient was instructed to follow up with PCP and ortho. Minutes to complete discharge: 35 Discharge Summary Reason For Visit: FRACTURE OF HIP Condition: Stable - Instructions Diet, Activity, Other Instructions: YOUR VISIT You were admitted to the hospital because you experienced a fall and had a hip fracture. You were seen by the bone doctor and you underwent surgery. You will be discharged to a nursing home facility to continue with rehab. You were also noted to be anemic. You received 1 unit of blood to which you tolerated well and your blood levels improved. Please continue taking the iron supplement at home. MEDICATIONS Please take note of the following new medications: - Lovenox 40mg injected daily for 30 days. Please also continue your home medications: - Losartan-Hctz 100-12.5 mg by mouth every day - Feosol 325 mg by mouth twice a day - Norvasc 5 mg by mouth every day ADDITIONAL CARE Please follow up with your primary care provider, Dr. Bales, 1 week from today. Please make an appointment to see the orthopedic surgeon for after-surgery care in 1-2 weeks. You will need special care for your surgery site: - Now that you have had this surgery, you will need additional medicine to prevent blood clots. You should take Lovenox 40 mg for 30 days. - You can use ice on your RIGHT hip now that you are out of the hospital. - Your surgical site dressing needs to be changed on December 13, 2018. (post- operative day 7) - You will also need to make an appointment to see Dr. Zuniga, on Dec 20, 2018. ( post operative day 14) to be assessed and to have your nena removed. - Please come to the hospital on Dec 19, 2018 to have an x-ray of your pelvis and RIGHT hip. Please take the disc with these images to your appointment with orthopedic surgeon, Dr. Zuniga. ADDITIONAL INFORMATION Please call 911 or come to the emergency department if you experience shortness of breath, chest pain, headache, unusual bleeding, seizure, or any other alarming symptoms. Referrals: Elmer Zuniga DO [Staff Physician] - Disposition: CUSTODIAL FACILITY - Home Medications Comprehensive Discharge Medication List: Ambulatory Orders Ascorbate Calcium [Vitamin C] 500 mg PO DAILY 03/24/14 Amlodipine Besylate [Norvasc -] 5 mg PO DAILY 12/04/18 Chlorhexidine Gluconate [Peridex -] 1 unit DAILY 12/05/18 Losartan/Hydrochlorothiazide [Losartan-Hctz 100-12.5 mg Tab] 1 each PO DAILY Docusate Sodium [Colace -] 100 mg PO BID capsule 12/08/18 Enoxaparin [Lovenox -] 40 mg SQ DAILY 30 Days disp.syrin 12/08/18 Ferrous Sulfate [Feosol] 325 mg PO BID ud 12/08/18 This patient is new to me today: No Emergency Visit: Yes ED Registration Date: 12/04/18 Care time: The patient presented to the Emergency Department on the above date and was hospitalized for further evaluation of their emergent condition. Critical Care patient: No - Discharge Referral Referred to [facility] No ATTENDING PHYSICIAN STATEMENT I saw and evaluated the patient. I reviewed the resident's note and discussed the case with the resident. I agree with the resident's findings and plan as documented. SUBJECTIVE: OBJECTIVE: ASSESSMENT AND PLAN:
== END 2018-12-08 14:11 | DRG 481 ==
LOC: JER 11:52 → JERBED 14:50 → J6S 17:14
PROC: 0QS606Z Reposition Right Upper Femur with Intramedullary Internal Fixation Device, Open Approach (ICD-10-PCS; principal; 2018-12-05 14:00)
PROC: 30233N1 Transfusion of Nonautologous Red Blood Cells into Peripheral Vein, Percutaneous Approach (ICD-10-PCS; 2018-12-07)
DX: S72.141A Displaced intertrochanteric fracture of right femur, initial encounter for closed fracture (principal); E87.1 Hypo-osmolality and hyponatremia; D62 Acute posthemorrhagic anemia; S72.21XA Displaced subtrochanteric fracture of right femur, initial encounter for closed fracture; M48.00 Spinal stenosis, site unspecified; I10 Essential (primary) hypertension; E86.0 Dehydration; W01.0XXA Fall on same level from slipping, tripping and stumbling without subsequent striking against object, initial encounter; Y92.89 Other specified places as the place of occurrence of the external cause; Z96.651 Presence of right artificial knee joint
CPT/HCPCS: 36415; 36430; 36511; 71045-TC-FY; 73502-TC-RT-FY; 73523-TC-FY; 73552-TC-RT-FY; 76000-TC-FY; 80048; 80053; 83735; 84100; 84484; 85025; 85610; 85730; 86850; 86870; 86900; 86901; 86902; 86922; 93005; 93010; 94760; 97116-GP; 97162-GP; 99284-25; J1644; J7030; P9038; P9058

== ENCOUNTER 2019-01-01 12:49 | Emergency (ER) | payer OTHER, MEDICARE | END 2019-01-01 15:36 | disposition home or self-care (01) | LOC: JER 12:49 ==

== ENCOUNTER 2019-01-02 10:48 | Inpatient (IN) | payer OTHER, MEDICARE ==
[2019-01-02] MEDS ORDERED: SODIUM CHLORIDE 1,000 ML IV STA (12:59)
[2019-01-02] MEDS ORDERED: ACETAMINOPHEN 1000 MG/100 ML VIAL (NON FORMULARY) IVPB ONE (12:59)
[2019-01-02] MEDS ORDERED: ACETAMINOPHEN INJECTION 100 ML IVPB ONE (13:01)
[2019-01-02 13:28] LABS: BASO % 0.4 % (0-2.0); EOS % 0.1 % (0-4.5); MCHC 33.3 g/dl (32.0-36.0); MEAN CELL VOLUME 93.1 fl (80-96); MEAN PLT VOLUME 6.8 fl (7.5-11.1); MONO % 7.1 % (3.8-10.2); NEUT % 83.4 % (42.8-82.8); PLATELET COUNT 374 K/MM3 (134-434); RBC 3.87 M/mm3 (3.60-5.2); RDW 15.4 % (11.6-15.6); WHITE BLOOD COUNT 6.2 K/mm3 (4.0-10.0)
[2019-01-02 13:42] LABS: INR 1.03 (0.83-1.09); PROTHROMBIN TIME (PATIENT) 12.1 SEC (9.7-13.0)
[2019-01-02 13:51] LABS: BILIRUBIN,TOTAL 1.3 mg/dL (0.2-1); BLOOD UREA NITROGEN 17.9 mg/dL (7-18); CALCIUM 10.2 mg/dL (8.5-10.1); CREATININE 0.8 mg/dL (0.55-1.3); POTASSIUM 3.9 mmol/L (3.5-5.1); TOT PROT 7.7 g/dl (6.4-8.2)
[2019-01-02 14:08] LABS: LIPASE 5549 U/L (73-393)
[2019-01-02 14:55] LABS: EPI CELLS 3.2 /HPF (0-5/HPF); HYALINE CASTS 2 /lpf (0-8); URINE APPEARANCE CLEAR; URINE BILIRUBIN NEGATIVE (NEGATIVE); URINE COLOR YELLOW; URINE GLUCOSE (UA) NEGATIVE (NEGATIVE); URINE KETONE NEGATIVE (NEGATIVE); URINE LEUK ESTERASE 3+ (NEGATIVE); URINE NITRITE NEGATIVE (NEGATIVE); URINE PROTEIN NEGATIVE (NEGATIVE); URINE RBC 3 /hpf (0-4); URINE WBC 4 /hpf (0-5)
[2019-01-02] MEDS ORDERED: DEXTROSE 5%-LACTATED RINGERS 1,000 ML IV SCH (15:15)
[2019-01-02] MEDS ORDERED: ONDANSETRON 4 MG/2 ML VIAL IVPUSH ONE (15:17)
--- NOTE | 2019-01-02 15:17 | PDOC ---
Documentation entered by Yu Alanis SCRIBE, acting as scribe for Kris Faye MD. Kris Faye MD: This documentation has been prepared by the Annabelle jarrell Xhesika, SCRIBE, under my direction and personally reviewed by me in its entirety. I confirm that the documentation accurately reflects all work, treatment, procedures, and medical decision making performed by me. History of Present Illness - General Chief Complaint: Pain Stated Complaint: ABD PAIN Time Seen by Provider: 01/02/19 12:05 History Source: Patient Exam Limitations: No Limitations - History of Present Illness Initial Comments: 01/02/19 12:57 The patient is a 78 year old female with a significant past medical history of R knee replacement (5yrs ago), HTN, Anemia, and spinal stenosis who presents to the ED with abdominal pain since this AM. Patient states she had R hip surgery 3 weeks ago (with Dr. Zuniga), was discharged from rehab Monday, and is currently injecting self w/ lovenox (last dose on Monday). Patient was seen here in the ED yesterday for R medial knee pain and was discharged with unremarkable results. The patient describes her pain as diffuse, constant, 10/ 10 in severity, RLQ>LLQ, radiating to her back. The patient states she had a normal BM this morning. The patient denies chest pain, shortness of breath, headache and dizziness. Denies fever, chills, nausea, vomiting, diarrhea and constipation. Denies dysuria, frequency, urgency and hematuria. Allergies: NKA PCP: Elke Alarcon Past History - Past Medical History Allergies/Adverse Reactions: Allergies Allergy/AdvReac Type Severity Reaction Status Date / Time adhesive Allergy Intermediate Itching Verified 01/02/19 10:59 aspirin Allergy Intermediate POSS GI Verified 01/02/19 10:59 BLEEDING-ANEMIA NSAIDS (Non-Steroidal Allergy Intermediate POSS GI Verified 01/02/19 10:59 Anti-Inflamma BLEEDING-ANEMIA polyethylene glycol 3350 Allergy Intermediate ITCHING, Verified 01/02/19 10:59 [From Miralax] HIVES ranitidine Allergy Intermediate Itching, Verified 01/02/19 10:59 HIVES latex Allergy Itching Verified 01/02/19 10:59 BANDAIDS Allergy Intermediate ITCHING, Uncoded 01/02/19 10:59 HIVES Home Medications: Ambulatory Orders Ascorbate Calcium [Vitamin C] 500 mg PO DAILY 03/24/14 Amlodipine Besylate [Norvasc -] 5 mg PO DAILY 12/04/18 Chlorhexidine Gluconate [Peridex -] 1 unit DAILY 12/05/18 Losartan/Hydrochlorothiazide [Losartan-Hctz 100-12.5 mg Tab] 1 each PO DAILY Docusate Sodium [Colace -] 100 mg PO BID capsule 12/08/18 Enoxaparin [Lovenox -] 40 mg SQ DAILY 30 Days disp.syrin 12/08/18 Ferrous Sulfate [Feosol] 325 mg PO BID ud 12/08/18 Anemia: Yes (ON IRON SUPPLEMENT) Asthma: No Cancer: Yes (BASAL CELL 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) Cardiac Disorders: No CVA: No COPD: No CHF: No Dementia: No Diabetes: No GI Disorders: Yes (REFLUX, HIATAL HERNIA, DIVERTICULOSIS) Disorders: No HTN: Yes (DX 2013) Hypercholesterolemia: No Liver Disease: No Seizures: No Thyroid Disease: No - Surgical History Abdominal Surgery: No Appendectomy: No Cardiac Surgery: No Cholecystectomy: No Lung Surgery: No Neurologic Surgery: No Orthopedic Surgery: Yes (GANGLION CYST-1973) - Suicide/Smoking/Psychosocial Hx Smoking History: Former smoker Have you smoked in the past 12 months: No Number of Cigarettes Smoked Daily: 20 If you are a former smoker, when did you quit?: 1994 Information on smoking cessation initiated: No Hx Alcohol Use: No Drug/Substance Use Hx: No Substance Use Type: None Hx Substance Use Treatment: No Review of Systems - Review of Systems Able to Perform ROS?: Yes Comments:: 01/02/19 12:58 CONSTITUTIONAL: No fever, no chills, no fatigue EYES: No visual changes ENT: No ear pain, no sore throat CARDIOVASCULAR: No chest pain, no palpitations RESPIRATORY: No cough, no SOB GI: (+) abdominal pain. no nausea, no vomiting, no constipation, no diarrhea GENITOURINARY: No dysuria, no frequency, no hematuria MUSKULOSKELETAL: (+) back pain. no joint pain, no myalgias SKIN: No rash NEURO: No headache *Physical Exam - Vital Signs Last Vital Signs Temp Pulse Resp BP Pulse Ox 97.9 F 85 22 H 171/80 H 99 09/11/19 11:00 01/02/19 11:00 01/02/19 11:00 01/02/19 11:00 01/02/19 11:00 ED Treatment Course - LABORATORY CBC & Chemistry Diagram: 01/02/19 13:16 01/02/19 13:16 - ADDITIONAL ORDERS Additional order review: Laboratory Results 01/02/19 01/02/19 01/02/19 14:15 13:16 13:16 PT with INR 12.10 INR 1.03 Sodium 131 L Potassium 3.9 Chloride 95 L Carbon Dioxide 27 Anion Gap 9 BUN 17.9 Creatinine 0.8 Est GFR (CKD-EPI)AfAm 81.27 Est GFR (CKD-EPI)NonAf 70.12 Random Glucose 125 H Calcium 10.2 H Total Bilirubin 1.3 H AST 23 ALT 17 Alkaline Phosphatase 180 H Creatine Kinase Troponin I Total Protein 7.7 Albumin 4.0 Lipase Urine Color Yellow Urine Appearance Clear Urine pH 7.0 Ur Specific [place] 1.021 Urine Protein Negative Urine Glucose (UA) Negative Urine Ketones Negative Urine Blood Negative Urine Nitrite Negative Urine Bilirubin Negative Urine Urobilinogen 1.0 Ur Leukocyte Esterase 3+ H Urine WBC (Auto) 4 Urine RBC (Auto) 3 Urine Casts (Auto) 2 U Epithel Cells (Auto) 3.2 Urine Bacteria (Auto) 13.0 01/02/19 13:16 PT with INR INR Sodium Potassium Chloride Carbon Dioxide Anion Gap BUN Creatinine Est GFR (CKD-EPI)AfAm Est GFR (CKD-EPI)NonAf Random Glucose Calcium Total Bilirubin AST ALT Alkaline Phosphatase Creatine Kinase 80 Troponin I < 0.02 Total Protein Albumin Lipase 5549 H Urine Color Urine Appearance Urine pH Ur Specific [place] Urine Protein Urine Glucose (UA) Urine Ketones Urine Blood Urine Nitrite Urine Bilirubin Urine Urobilinogen Ur Leukocyte Esterase Urine WBC (Auto) Urine RBC (Auto) Urine Casts (Auto) U Epithel Cells (Auto) Urine Bacteria (Auto) 01/02/19 13:16 RBC 3.87 MCV 93.1 MCHC 33.3 RDW 15.4 D MPV 6.8 L Neutrophils % 83.4 H Lymphocytes % 9.0 D Monocytes % 7.1 Eosinophils % 0.1 D Basophils % 0.4 - RADIOLOGY Radiology Studies Ordered: Category Date Time Status CHEST - PA [RAD] Stat Radiology 01/02/19 12:58 Ordered ABDOMEN US -LIMITED [US] Stat Ultrasound 01/02/19 12:58 Ordered - Medications Given in the ED: ED Medications Discontinued Medications Generic Name Dose Route Start Last Admin Trade Name Davi PRN Reason Stop Dose Admin Acetaminophen 1,000 mg 01/02/19 12:59 01/02/19 13:20 Ofirmev Injection - IVPB 01/02/19 13:00 1,000 mg ONCE ONE Administration Sodium Chloride 1,000 mls @ 1,000 mls/hr 01/02/19 12:59 01/02/19 13:20 Normal Saline - IV 01/02/19 13:58 1,000 mls/hr ASDIR STA Administration Medical Decision Making - Medical Decision Making 01/02/19 15:12 pt is 78 y/o female with multiple comorbidities, s/p r. hip orif c/o severe epigastric and ruq pain, radiating to the back with nausea. pts lipase is significantly elevated c/w acute pancreatitis. will obtain RUQ US, will obtain Ct abd-pelvis. will hydrate and administer pain meds. will admit. 01/02/19 16:07 pts pain controled. RUQ US shows no evidence of cholelithiasis. will check lipid level. will obtain ct abd-pelvis. will admit with gi consult. *DC/Admit/Observation/Transfer Diagnosis at time of Disposition: Acute pancreatitis Qualifiers: Pancreatitis type: unspecified pancreatitis type Acute pancreatitis complication: unspecified Qualified Code(s): K85.90 - Acute pancreatitis without necrosis or infection, unspecified - Discharge Dispostion Condition at time of disposition: Fair Decision to Admit order: Yes - Referrals Referrals: Elke Bales MD [Primary Care Provider] - - Patient Instructions - Post Discharge Activity
[2019-01-02] MEDS ORDERED: morphine CARPU-JECT 2 MG/1 ML DISP.SYRIN IVPUSH ONE (15:18)
[2019-01-02] MEDS ORDERED: MORPHINE SULFATE 2 MG/ML VIAL ONE ×3 (15:30→20:35)
[2019-01-02] MEDS ORDERED: ONDANSETRON 4 MG/2 ML VIAL ONE (15:31)
[2019-01-02] MEDS ORDERED: KETOROLAC TROMETHAMINE 15 MG/ML VIAL IVPUSH PRN (17:51)
--- NOTE | 2019-01-02 18:34 | HP ---
CHIEF COMPLAINT: Pancreatitis PCP: Dr. Bales HISTORY OF PRESENT ILLNESS: 78 y/o F with PMHx of HTN, Spinal stenosis, HLD who recently visited [facility] x2, presents with sudden onset Right sided abdominal pain. Patient was recently admitted to [facility] in 12/10 after a fall, found to have R intertrochanteric femur fx repaired via Nail fixation by Dr. Zuniga, and discharged to [place] for Rehab. Patient [facility]ited [facility] on 01/01/19 for RLE tenderness; her DVT workup was negative and she was discharged home. This AM patient woke in her Usual state of health, She was able to tolerate breakfast and had a normal BM. Around 10:00 , patient had sudden onset 10/10 sharp right abdominal pain that radiated through to her back. This was the first time she experienced pain like this prompting her to alert EMS. Upon arrival, patient complained of dry heaves and nausea. During my interview, patient had received morphine and noted that her pain improved to 5/10. She denies any recent trauma, rash, medication changes or travel. Denies any associated fevers, chills, chest pain, SOB, vomiting, diarrhea, constipation, dysuria, hematuria, hematochezia. ER course was notable for: (1) (2) (3) Recent Travel: Denies PAST MEDICAL HISTORY: As above PAST SURGICAL HISTORY: Right Total knee replacement Right InterTrochanteric femur Fx Social History: Smokin pack year smoking hx, quit 25 years ago Alcohol: Socially Drugs: Denies Occupation: Retired; worked in Medical records @ [facility] Ambulation: with Walker Residence: Lives alone; Older sister, cousin Subhash and Son are involved and check on patient Family History: Mother: OA, Bladder Ca, TIA/CVA Father: Cirrhosis (due to EtOH) Sister: Lung, bladder and breast Ca Allergies adhesive Allergy (Intermediate, Verified 01/02/19 10:59) Itching aspirin Allergy (Intermediate, Verified 01/02/19 10:59) POSS GI BLEEDING-ANEMIA NSAIDS (Non-Steroidal Anti-Inflamma Allergy (Intermediate, Verified 01/02/19 10: 59) POSS GI BLEEDING-ANEMIA polyethylene glycol 3350 [From Miralax] Allergy (Intermediate, Verified 10:59) ITCHING, HIVES ranitidine Allergy (Intermediate, Verified 01/02/19 10:59) Itching, HIVES latex Allergy (Verified 01/02/19 10:59) Itching BANDAIDS Allergy (Intermediate, Uncoded 01/02/19 10:59) ITCHING, HIVES HOME MEDICATIONS: Home Medications Medication Instructions Recorded Ascorbate Calcium [Vitamin C] 500 mg PO DAILY 03/24/14 Amlodipine Besylate [Norvasc -] 5 mg PO DAILY 12/04/18 Chlorhexidine Gluconate [Peridex -] 1 unit DAILY 12/05/18 Losartan/Hydrochlorothiazide 1 each PO DAILY 12/05/18 [Losartan-Hctz 100-12.5 mg Tab] Docusate Sodium [Colace -] 100 mg PO BID capsule 12/08/18 Enoxaparin [Lovenox -] 40 mg SQ DAILY 30 Days disp.syrin 12/08/18 Ferrous Sulfate [Feosol] 325 mg PO BID ud 12/08/18 REVIEW OF SYSTEMS As per HPI PHYSICAL EXAMINATION Vital Signs - 24 hr 01/02/19 01/02/19 11:00 15:43 Temperature 97.9 F 97.8 F Pulse Rate 85 Pulse Rate [ 88 Right Radial] Respiratory 22 H 18 Rate Blood Pressure 171/80 H Blood Pressure 153/74 [Left Arm] O2 Sat by Pulse 99 100 Oximetry (%) GENERAL: A&Ox3, NAD HEAD: NCAT EYES: PERRL, EOMI EARS, NOSE, THROAT: Dry mucous membranes. NECK: Supple, No JVD LUNGS: CTAB. No wheezes, no crackles HEART: Regular rate and rhythm, normal S1 and S2 without murmur ABDOMEN: Soft, Tender to palpation in the RLQ, not distended, + bowel sounds, no guarding, no rebound MUSCULOSKELETAL: No CVA tenderness. EXTREMITIES: 2+ pulses, No peripheral edema. NEUROLOGICAL: Cranial nerves II-XII intact. Normal speech. 5/5 muscle strength throughout. Gross sensation intact throughout. SKIN: Warm, dry Laboratory Results - last 24 hr 01/02/19 01/02/19 01/02/19 13:16 13:16 13:16 WBC 6.2 RBC 3.87 Hgb 12.0 Hct 36.0 D MCV 93.1 MCH 31.0 MCHC 33.3 RDW 15.4 D Plt Count 374 D MPV 6.8 L Absolute Neuts (auto) 5.2 Neutrophils % 83.4 H Lymphocytes % 9.0 D Monocytes % 7.1 Eosinophils % 0.1 D Basophils % 0.4 Nucleated RBC % 0 PT with INR INR Sodium 131 L Potassium 3.9 Chloride 95 L Carbon Dioxide 27 Anion Gap 9 BUN 17.9 Creatinine 0.8 Est GFR (CKD-EPI)AfAm 81.27 Est GFR (CKD-EPI)NonAf 70.12 Random Glucose 125 H Calcium 10.2 H Total Bilirubin 1.3 H AST 23 ALT 17 Alkaline Phosphatase 180 H Creatine Kinase 80 Troponin I < 0.02 Total Protein 7.7 Albumin 4.0 Lipase 5549 H Urine Color Urine Appearance Urine pH Ur Specific [place] Urine Protein Urine Glucose (UA) Urine Ketones Urine Blood Urine Nitrite Urine Bilirubin Urine Urobilinogen Ur Leukocyte Esterase Urine WBC (Auto) Urine RBC (Auto) Urine Casts (Auto) U Epithel Cells (Auto) Urine Bacteria (Auto) 01/02/19 01/02/19 13:16 14:15 WBC RBC Hgb Hct MCV MCH MCHC RDW Plt Count MPV Absolute Neuts (auto) Neutrophils % Lymphocytes % Monocytes % Eosinophils % Basophils % Nucleated RBC % PT with INR 12.10 INR 1.03 Sodium Potassium Chloride Carbon Dioxide Anion Gap BUN Creatinine Est GFR (CKD-EPI)AfAm Est GFR (CKD-EPI)NonAf Random Glucose Calcium Total Bilirubin AST ALT Alkaline Phosphatase Creatine Kinase Troponin I Total Protein Albumin Lipase Urine Color Yellow Urine Appearance Clear Urine pH 7.0 Ur Specific [place] 1.021 Urine Protein Negative Urine Glucose (UA) Negative Urine Ketones Negative Urine Blood Negative Urine Nitrite Negative Urine Bilirubin Negative Urine Urobilinogen 1.0 Ur Leukocyte Esterase 3+ H Urine WBC (Auto) 4 Urine RBC (Auto) 3 Urine Casts (Auto) 2 U Epithel Cells (Auto) 3.2 Urine Bacteria (Auto) 13.0 Active Medications Enoxaparin Sodium (Lovenox -) 40 mg SQ DAILY [facility] Dextrose/Lactated Ringer's (D5-Lr -) 1,000 mls @ 100 mls/hr IV ASDIR [facility] Last Admin: 01/02/19 16:19 Dose: 100 mls/hr Morphine Sulfate (Morphine Sulfate) 1 mg IVPB Q4H PRN PRN Reason: PAIN LEVEL 6-10 ASSESSMENT/PLAN: 78 y/o F with PMHx of HTN, Spinal stenosis, HLD who recently visited [facility] x2, presents with sudden onset Right sided abdominal pain. #Acute Pancreatitis -Unclear etiology; Possibly due to HCTZ use. Patient denies EtOH consumption, RUQ US does not reveal cholelithiasis, No recent ERCP, Viral Illness, uremia or trauma. -Afebrle, Hemodynamically stable, without leukocytosis -ALP 180, Lipase 5549, TBili 1.3 -Will check Triglyceride level, CT A/P -NPO for now, will trial diet when patient able to tolerate PO -IV Hydration via D5-LR @ 100 mls/hr until pain resolves and tolerating PO -EKG Pending; Will order Antiemesis pending QTc -Pain control via Morphine; Will avoid NSAIDs given allergy -GI Consulted by ED -Place NGT if any nausea/vomiting, severe abdominal pain or abdominal distension -Serial abdominal exams -Hold HCTZ #HTN -Restart homed meds once clinically appropriate, Hold thiazide; Will need to have meds reconciled #Positive UA -However remains asymptomatic -Will hold off Abx pending urine cx results #FEN -D5-LR @ 100 mls/hr -Lytes wnl, replete PRN -NPO #PPx -DVT: Lovenox Dispo: Admit to Med-surg Visit type - Emergency Visit Emergency Visit: Yes ED Registration Date: 01/02/19 Care time: The patient presented to the Emergency Department on the above date and was hospitalized for further evaluation of their emergent condition. - New Patient This patient is new to me today: Yes Date on this admission: 01/03/19 - Critical Care Critical Care patient: No ATTENDING PHYSICIAN STATEMENT I saw and evaluated the patient. I reviewed the resident's note and discussed the case with the resident. I agree with the resident's findings and plan as documented. SUBJECTIVE: OBJECTIVE: ASSESSMENT AND PLAN:
[2019-01-02] MEDS: MORPHINE SULFATE 2 MG/ML VIAL IVPB PRN (19:00)
[2019-01-02] MEDS ORDERED: MORPHINE SULFATE 2 MG/ML VIAL IVPUSH ONE (20:21)
--- NOTE | 2019-01-02 20:21 | PN ---
Teaching Attending Note Name of Resident: Melinda Calix ATTENDING PHYSICIAN STATEMENT I saw and evaluated the patient. I reviewed the resident's note and discussed the case with the resident. I agree with the resident's findings and plan as documented. SUBJECTIVE: Ongoing abdominal pain, nausea. No vomiting/diarrhea. No fever/ chills. OBJECTIVE: Afebrile, Hemodynamically Stable. Last Vital Signs Temp Pulse Resp BP Pulse Ox 97.9 F 101 H 20 183/84 H 100 01/02/19 18:50 01/02/19 18:50 01/02/19 18:50 01/02/19 18:50 01/02/19 18:50 HEENT - Atraumatic, Normocephalic. Heart - S1, S2, RRR Lungs - clear to auscultation Abdomen - R sided abdominal tenderness, soft. Bowel Sounds normal. Extremities - Mild edema LEs. Some calf tenderness RLE. Laboratory Results - last 24 hr 01/02/19 01/02/19 01/02/19 13:16 13:16 13:16 WBC 6.2 RBC 3.87 Hgb 12.0 Hct 36.0 D MCV 93.1 MCH 31.0 MCHC 33.3 RDW 15.4 D Plt Count 374 D MPV 6.8 L Absolute Neuts (auto) 5.2 Neutrophils % 83.4 H Lymphocytes % 9.0 D Monocytes % 7.1 Eosinophils % 0.1 D Basophils % 0.4 Nucleated RBC % 0 PT with INR INR Sodium 131 L Potassium 3.9 Chloride 95 L Carbon Dioxide 27 Anion Gap 9 BUN 17.9 Creatinine 0.8 Est GFR (CKD-EPI)AfAm 81.27 Est GFR (CKD-EPI)NonAf 70.12 Random Glucose 125 H Calcium 10.2 H Total Bilirubin 1.3 H AST 23 ALT 17 Alkaline Phosphatase 180 H Creatine Kinase 80 Troponin I < 0.02 Total Protein 7.7 Albumin 4.0 Lipase 5549 H Urine Color Urine Appearance Urine pH Ur Specific [place] Urine Protein Urine Glucose (UA) Urine Ketones Urine Blood Urine Nitrite Urine Bilirubin Urine Urobilinogen Ur Leukocyte Esterase Urine WBC (Auto) Urine RBC (Auto) Urine Casts (Auto) U Epithel Cells (Auto) Urine Bacteria (Auto) 01/02/19 01/02/19 13:16 14:15 WBC RBC Hgb Hct MCV MCH MCHC RDW Plt Count MPV Absolute Neuts (auto) Neutrophils % Lymphocytes % Monocytes % Eosinophils % Basophils % Nucleated RBC % PT with INR 12.10 INR 1.03 Sodium Potassium Chloride Carbon Dioxide Anion Gap BUN Creatinine Est GFR (CKD-EPI)AfAm Est GFR (CKD-EPI)NonAf Random Glucose Calcium Total Bilirubin AST ALT Alkaline Phosphatase Creatine Kinase Troponin I Total Protein Albumin Lipase Urine Color Yellow Urine Appearance Clear Urine pH 7.0 Ur Specific [place] 1.021 Urine Protein Negative Urine Glucose (UA) Negative Urine Ketones Negative Urine Blood Negative Urine Nitrite Negative Urine Bilirubin Negative Urine Urobilinogen 1.0 Ur Leukocyte Esterase 3+ H Urine WBC (Auto) 4 Urine RBC (Auto) 3 Urine Casts (Auto) 2 U Epithel Cells (Auto) 3.2 Urine Bacteria (Auto) 13.0 Current Medications Generic Name Dose Route Start Last Admin Trade Name Freq PRN Reason Stop Dose Admin Enoxaparin Sodium 40 mg 01/03/19 10:00 Lovenox - SQ DAILY PORTILLO Dextrose/Lactated Ringer's 1,000 mls @ 100 mls/hr 01/02/19 15:15 01/02/19 16: 19 D5-Lr - IV 100 mls/hr ASDIR PORTILLO Administration Morphine Sulfate 1 mg 01/02/19 18:24 01/02/19 19:00 Morphine Sulfate IVPB 1 mg Q4H PRN Administration PAIN LEVEL 6-10 Home Medications Medication Instructions Recorded Ascorbate Calcium [Vitamin C] 500 mg PO DAILY 03/24/14 Amlodipine Besylate [Norvasc -] 5 mg PO DAILY 12/04/18 Chlorhexidine Gluconate [Peridex -] 1 unit DAILY 12/05/18 Losartan/Hydrochlorothiazide 1 each PO DAILY 12/05/18 [Losartan-Hctz 100-12.5 mg Tab] Docusate Sodium [Colace -] 100 mg PO BID capsule 12/08/18 Enoxaparin [Lovenox -] 40 mg SQ DAILY 30 Days disp.syrin 12/08/18 Ferrous Sulfate [Feosol] 325 mg PO BID ud 12/08/18 ASSESSMENT AND PLAN: 78 year old female with history of HTN, Spinal Stenosis, HLD, s/p recent R hip arthroplasty s/p fall (on prophylactic enoxaparin post-op), presents with sudden onset R sided abdominal pain, with associated nausea - no vomiting/ diarrhea/melena/hematochezia. 1. Acute Abdominal Pain, likely Acute Pancreatitis Etiology unclear ?sec to thiazide diuretic Lipase 5549 Abdominal US - no cholelithiasis, findings suggestive of fatty liver TBil 1.3 Afebrile, Hemodynamically Stable. CT A/P pending. TG level requested NPO/IV hydration Morphine PRN 2. HTN - Continue Losartan, Norvasc. HCTZ held. 3. R Calf tenderness - Doppler negative for DVT 4. Positive UA, asymptomatic. Urine Cx pending. Will hold off Abx pending Urine Cx result. 5. Acute Blood Loss anemia secondary to orthopedic surgery - on FeSO4 post-op. Anemia resolved. Will stop iron supplementation. DVT Px - Lovenox SQ.
[2019-01-02] MEDS ORDERED: amLODIPine BESYLATE 5 MG TABLET (FP) ONE (21:03)
[2019-01-02] MEDS: amLODIPine BESYLATE 5 MG TABLET (FP) PO SCH (21:19)
[2019-01-03 00:15] VITALS: BMI 23.6
[2019-01-03] MEDS: MORPHINE SULFATE 2 MG/ML VIAL IVPB PRN ×3 (00:55→19:54)
[2019-01-03] MEDS ORDERED: MORPHINE SULFATE 2 MG/ML VIAL IVPUSH ONE ×3 (02:09→08:15)
[2019-01-03 08:19] LABS: BASO % 0.2 % (0-2.0); EOS % 0.4 % (0-4.5); HEMATOCRIT 33.4 % (32.4-45.2); HEMOGLOBIN 11.1 GM/dL (10.7-15.3); LYMPH % 8.8 % (8-40); MCH 30.9 pg (25.7-33.7); MCHC 33.3 g/dl (32.0-36.0); MEAN CELL VOLUME 92.7 fl (80-96); MONO % 7.6 % (3.8-10.2); PLATELET COUNT 303 K/MM3 (134-434); RDW 15.6 % (11.6-15.6); WHITE BLOOD COUNT 7.7 K/mm3 (4.0-10.0)
[2019-01-03 08:38] LABS: ALBUMIN 3.1 g/dl (3.4-5.0); BILIRUBIN,TOTAL 1.3 mg/dL (0.2-1); BLOOD UREA NITROGEN 8.5 mg/dL (7-18); CREATININE 0.6 mg/dL (0.55-1.3); PHOSPHOROUS 3.3 mg/dL (2.5-4.9); POTASSIUM 3.7 mmol/L (3.5-5.1); TOT PROT 6.3 g/dl (6.4-8.2)
[2019-01-03] MEDS: LOSARTAN POTASSIUM 50 MG TABLET (FP) PO SCH (09:35)
[2019-01-03] MEDS: amLODIPine BESYLATE 5 MG TABLET (FP) PO SCH (09:35)
[2019-01-03] MEDS: ENOXAPARIN NA (PORCINE) 40 MG/0.4 ML DISP.SYRIN SQ SCH (09:35)
[2019-01-03] MEDS: DEXTROSE 5%-LACTATED RINGERS 1,000 ML IV SCH ×2 (11:06→15:22)
--- NOTE | 2019-01-03 13:02 | PN ---
Physical Exam: SUBJECTIVE: 78 year old female with history of HTN, Spinal Stenosis, HLD, s/p recent R hip arthroplasty s/p fall (on prophylactic enoxaparin post-op), presents with sudden onset RIGHT sided abdominal pain with associated nausea. Pt states she is distressed about being in the hospital. She c/o abdominal pain located on the RIGHT and has had consistent presentation. She denies vomiting, fever, and diarrhea. She denies hematochezia. OBJECTIVE: Vital Signs Period Temp Pulse Resp BP Sys/De Santiago Pulse Ox Last 24 Hr 97.4 F-98.6 F 77-101 17-20 104-183/53-84 95-100 GENERAL: AOx3, in no acute distress. HEAD: NCAT EYES: SALO, EOMI, conjunctiva clear. ENT: Ears normal, nares patent, oropharynx clear without exudates. Moist mucous membranes. NECK: Normal range of motion, supple without lymphadenopathy, JVD, or masses. LUNGS: CTAB. No wheezes, and no crackles. No accessory muscle use. HEART: RRR s1 s2 ABDOMEN: Tender to palpation on right. Soft, BS present in all 4 quadrants, non -distended, no JVD, MUSCULOSKELETAL: No bony deformities or tenderness. No CVA tenderness. UPPER EXTREMITIES: 2+ pulses, warm, well-perfused. No cyanosis. No clubbing. No peripheral edema. LOWER EXTREMITIES: 2+ pulses, warm, well-perfused. No calf tenderness. No peripheral edema. NEUROLOGICAL: Cranial nerves II-XII intact. Normal speech. Gait not appreciated. PSYCHIATRIC: Cooperative. Good eye contact. Appropriate mood and affect. SKIN: Warm, dry, normal turgor, no rashes or lesions noted, normal capillary refill. Laboratory Results - last 24 hr 01/02/19 01/02/19 01/02/19 13:16 13:16 13:16 WBC 6.2 RBC 3.87 Hgb 12.0 Hct 36.0 D MCV 93.1 MCH 31.0 MCHC 33.3 RDW 15.4 D Plt Count 374 D MPV 6.8 L Absolute Neuts (auto) 5.2 Neutrophils % 83.4 H Lymphocytes % 9.0 D Monocytes % 7.1 Eosinophils % 0.1 D Basophils % 0.4 Nucleated RBC % 0 PT with INR INR Sodium 131 L Potassium 3.9 Chloride 95 L Carbon Dioxide 27 Anion Gap 9 BUN 17.9 Creatinine 0.8 Est GFR (CKD-EPI)AfAm 81.27 Est GFR (CKD-EPI)NonAf 70.12 Random Glucose 125 H Calcium 10.2 H Phosphorus Magnesium Total Bilirubin 1.3 H AST 23 ALT 17 Alkaline Phosphatase 180 H Creatine Kinase 80 Troponin I < 0.02 Total Protein 7.7 Albumin 4.0 Triglycerides Cholesterol Total LDL Cholesterol HDL Cholesterol Lipase 5549 H Urine Color Urine Appearance Urine pH Ur Specific Curtis Urine Protein Urine Glucose (UA) Urine Ketones Urine Blood Urine Nitrite Urine Bilirubin Urine Urobilinogen Ur Leukocyte Esterase Urine WBC (Auto) Urine RBC (Auto) Urine Casts (Auto) U Epithel Cells (Auto) Urine Bacteria (Auto) 01/02/19 01/02/19 01/03/19 13:16 14:15 07:25 WBC 7.7 RBC 3.60 Hgb 11.1 Hct 33.4 MCV 92.7 MCH 30.9 MCHC 33.3 RDW 15.6 Plt Count 303 MPV 7.0 L Absolute Neuts (auto) 6.4 Neutrophils % 83.0 H Lymphocytes % 8.8 Monocytes % 7.6 Eosinophils % 0.4 D Basophils % 0.2 Nucleated RBC % 0 PT with INR 12.10 INR 1.03 Sodium Potassium Chloride Carbon Dioxide Anion Gap BUN Creatinine Est GFR (CKD-EPI)AfAm Est GFR (CKD-EPI)NonAf Random Glucose Calcium Phosphorus Magnesium Total Bilirubin AST ALT Alkaline Phosphatase Creatine Kinase Troponin I Total Protein Albumin Triglycerides Cholesterol Total LDL Cholesterol HDL Cholesterol Lipase Urine Color Yellow Urine Appearance Clear Urine pH 7.0 Ur Specific Curtis 1.021 Urine Protein Negative Urine Glucose (UA) Negative Urine Ketones Negative Urine Blood Negative Urine Nitrite Negative Urine Bilirubin Negative Urine Urobilinogen 1.0 Ur Leukocyte Esterase 3+ H Urine WBC (Auto) 4 Urine RBC (Auto) 3 Urine Casts (Auto) 2 U Epithel Cells (Auto) 3.2 Urine Bacteria (Auto) 13.0 01/03/19 07:25 WBC RBC Hgb Hct MCV MCH MCHC RDW Plt Count MPV Absolute Neuts (auto) Neutrophils % Lymphocytes % Monocytes % Eosinophils % Basophils % Nucleated RBC % PT with INR INR Sodium 135 L Potassium 3.7 Chloride 100 Carbon Dioxide 26 Anion Gap 8 BUN 8.5 Creatinine 0.6 Est GFR (CKD-EPI)AfAm 100.48 Est GFR (CKD-EPI)NonAf 86.69 Random Glucose 118 H Calcium 9.0 Phosphorus 3.3 Magnesium 2.0 Total Bilirubin 1.3 H AST 63 H ALT 46 Alkaline Phosphatase 168 H Creatine Kinase Troponin I Total Protein 6.3 L Albumin 3.1 L Triglycerides 111 Cholesterol 160 Total LDL Cholesterol 78 HDL Cholesterol 65 H Lipase Urine Color Urine Appearance Urine pH Ur Specific Curtis Urine Protein Urine Glucose (UA) Urine Ketones Urine Blood Urine Nitrite Urine Bilirubin Urine Urobilinogen Ur Leukocyte Esterase Urine WBC (Auto) Urine RBC (Auto) Urine Casts (Auto) U Epithel Cells (Auto) Urine Bacteria (Auto) Active Medications Acetaminophen (Ofirmev Injection -) 1,000 mg IVPB ONCE ONE Stop: 01/05/19 22:44 Al Hydroxide/Mg Hydroxide (Mylanta Oral Suspension -) 30 ml PO Q6H PRN PRN Reason: DYSPEPSIA Amlodipine Besylate (Norvasc -) 5 mg PO DAILY ON LICENSE OF [facility] Last Admin: 01/05/19 11:26 Dose: 5 mg Enoxaparin Sodium (Lovenox -) 40 mg SQ DAILY ON LICENSE OF [facility] Last Admin: 01/05/19 11:26 Dose: 40 mg Losartan Potassium (Cozaar -) 100 mg PO DAILY ON LICENSE OF [facility] Last Admin: 01/05/19 11:25 Dose: 100 mg Pantoprazole Sodium (Protonix -) 40 mg PO BID ON LICENSE OF [facility] Last Admin: 01/05/19 21:16 Dose: 40 mg ASSESSMENT/PLAN: 78 y/o female with PMH HTN, Spinal Stenosis, HLD, s/p recent RIGHT hip arthroplasty s/p fall (on prophylactic enoxaparin post-op), presents with sudden onset RIGHT sided abdominal pain, with associated nausea. # Acute Abdominal Pain - Poss acute pancreatitis - Lipase 5,549 - Abdominal US: No cholelithiasis, fatty liver - TBil 1.3 - CT A/P pending - TG level pending - NPO/IV hydration - Morphine PRN # HTN - Cont. home regimen of losartan, norvasc. - HOLD HCTZ # RIGHT Calf tenderness - Doppler negative for DVT # Positive UA, asymptomatic - Urine Cx pending - Hold abx pending urine cx result. # Acute blood loss anemia secondary to orthopedic surgery - FeSO4 post-op. - Pt reports non-compliance - Anemia presently resolved - Hold iron supplementation. # F/E/N - LR - Cont. to monitor - NPO # DVT prophylaxis - Lovenox SQ Kee Bright MD Visit type - Emergency Visit Emergency Visit: No - New Patient This patient is new to me today: No - Critical Care Critical Care patient: No - Discharge Referral Referred to [facility] No ATTENDING PHYSICIAN STATEMENT I saw and evaluated the patient. I reviewed the resident's note and discussed the case with the resident. I agree with the resident's findings and plan as documented. SUBJECTIVE: OBJECTIVE: ASSESSMENT AND PLAN:
[2019-01-03] MEDS ORDERED: ACETAMINOPHEN 325 MG TABLET (FP) PO ONE (13:14)
--- NOTE | 2019-01-03 15:29 | EKG ---
Test Reason : Blood Pressure : / mmHG Vent. Rate : 089 BPM Atrial Rate : 089 BPM P-R Int : 202 ms QRS Dur : 092 ms QT Int : 384 ms P-R-T Axes : 082 061 052 degrees QTc Int : 467 ms SINUS RHYTHM WITH PREMATURE ATRIAL COMPLEXES INCOMPLETE RIGHT BUNDLE BRANCH BLOCK T WAVE ABNORMALITY, CONSIDER ANTERIOR ISCHEMIA ABNORMAL ECG WHEN COMPARED WITH ECG OF 06-DEC-2018 23:56, NO SIGNIFICANT CHANGE WAS FOUND Confirmed by MAXI DESAI MD ([id number]) on 01/03/2019 3:29:15 PM Referred By: Confirmed By:MAXI DESAI MD
--- NOTE | 2019-01-03 16:18 | ECHO ---
Name: BECKI GONZALEZ Exam:Adult Echocardiogram Study Date: 01/03/2019 01:30 PM Age: 78 yrs Reason For Study: LV Function Height: 63 in Weight: 133 lb BSA: 1.6 m2 MMode/2D Measurements & Calculations IVSd: 1.4 cm Ao root diam: 2.9 cm LVIDd: 3.6 cm LA dimension: 3.1 cm LVIDs: 2.1 cm LVPWd: 0.85 cm EDV(Teich): 54.1 ml LVOT diam: 2.0 cm ESV(Teich): 14.6 ml LAV (MOD-bp): 69.0 ml Doppler Measurements & Calculations MV E max paul: 120.0 cm/sec Ao V2 max: 230.5 cm/sec MV A max paul: 62.4 cm/sec Ao max P.3 mmHg MV E/A: 1.9 Ao V2 mean: 160.7 cm/sec MV dec time: 0.17 sec Ao mean P.0 mmHg Ao V2 VTI: 50.4 cm ELIZA(I,D): 1.4 cm2 AI P1/2t: 338.9 msec ELIZA(V,D): 1.5 cm2 AI max paul: 382.0 cm/sec LV V1 max P.2 mmHg AI max P.4 mmHg LV V1 mean P.1 mmHg AI dec slope: 330.1 cm/sec2 LV V1 max: 114.3 cm/sec LV V1 mean: 82.4 cm/sec LV V1 VTI: 22.9 cm MR max paul: 502.2 cm/sec SV(LVOT): 69.5 ml MR max P.0 mmHg TR max paul: 260.2 cm/sec PA V2 max: 104.5 cm/sec TR max P.7 mmHg PA max P.4 mmHg Med Peak E' Paul: 6.0 cm/sec PI Vmax: 130.3 cm/sec Med E/e': 20.1 Lat Peak E' Paul: 6.6 cm/sec Lat E/e': 18.1 Procedure A complete two-dimensional transthoracic echocardiogram was performed (2D, M-mode, Doppler and color flow Doppler). Left Ventricle The left ventricular size, thickness and function are normal. The left ventricular ejection fraction is normal. Ejection Fraction = 60-65%. The left ventricular wall motion is normal. Right Ventricle The right ventricle is normal in size and function. Atria Normal left and right atrial size and function. Mitral Valve There is trace mitral regurgitation. Tricuspid Valve There is trace tricuspid regurgitation. Right ventricular systolic pressure is normal. Aortic Valve The aortic valve is trileaflet. Mild valvular aortic stenosis. Trace aortic regurgitation. Pulmonic Valve There is no pulmonic valvular regurgitation. Great Vessels The aortic root is normal size. Pericardium/Pleura There is no pericardial effusion. Interpretation Summary The left ventricular size, thickness and function are normal The right ventricle is normal in size and function. There is trace mitral regurgitation. There is trace tricuspid regurgitation. Mild valvular aortic stenosis. Trace aortic regurgitation. MD Jose Campos 01/03/2019 04:17 PM
--- NOTE | 2019-01-03 16:58 | PN ---
Teaching Attending Note Name of Resident: Kee Bright ATTENDING PHYSICIAN STATEMENT I saw and evaluated the patient. I reviewed the resident's note and discussed the case with the resident. I agree with the resident's findings and plan as documented. SUBJECTIVE: Ongoing abdominal pain, nausea. No vomiting/diarrhea. No fever/ chills. OBJECTIVE: Afebrile, Hemodynamically Stable. Last Vital Signs Temp Pulse Resp BP Pulse Ox 99.0 F 82 20 115/52 L 95 01/03/19 14:59 01/03/19 14:59 01/03/19 14:59 01/03/19 14:59 01/03/19 09:00 Heart - S1, S2, RRR Lungs - clear to auscultation Abdomen - R sided abdominal tenderness, soft. Bowel Sounds normal. Extremities - Mild edema LEs. Some calf tenderness RLE. Laboratory Results - last 24 hr 01/03/19 01/03/19 07:25 07:25 WBC 7.7 RBC 3.60 Hgb 11.1 Hct 33.4 MCV 92.7 MCH 30.9 MCHC 33.3 RDW 15.6 Plt Count 303 MPV 7.0 L Absolute Neuts (auto) 6.4 Neutrophils % 83.0 H Lymphocytes % 8.8 Monocytes % 7.6 Eosinophils % 0.4 D Basophils % 0.2 Nucleated RBC % 0 Sodium 135 L Potassium 3.7 Chloride 100 Carbon Dioxide 26 Anion Gap 8 BUN 8.5 Creatinine 0.6 Est GFR (CKD-EPI)AfAm 100.48 Est GFR (CKD-EPI)NonAf 86.69 Random Glucose 118 H Calcium 9.0 Phosphorus 3.3 Magnesium 2.0 Total Bilirubin 1.3 H AST 63 H ALT 46 Alkaline Phosphatase 168 H Total Protein 6.3 L Albumin 3.1 L Triglycerides 111 Cholesterol 160 Total LDL Cholesterol 78 HDL Cholesterol 65 H Current Medications Generic Name Dose Route Start Last Admin Trade Name Freq PRN Reason Stop Dose Admin Amlodipine Besylate 5 mg 01/02/19 20:45 01/03/19 09:35 Norvasc - PO 5 mg DAILY PORTILLO Administration Enoxaparin Sodium 40 mg 01/03/19 10:00 01/03/19 09:35 Lovenox - SQ 40 mg DAILY PORTILLO Administration Dextrose/Lactated Ringer's 1,000 mls @ 200 mls/hr 01/03/19 10:29 01/03/19 15: 22 D5-Lr - IV 200 mls/hr ASDIR PORTILLO Administration Losartan Potassium 100 mg 01/03/19 10:00 01/03/19 09:35 Cozaar - PO 100 mg DAILY PORTILLO Administration Morphine Sulfate 1 mg 01/02/19 18:24 01/03/19 05:07 Morphine Sulfate IVPB 1 mg Q4H PRN Administration PAIN LEVEL 6-10 Home Medications Medication Instructions Recorded Ascorbate Calcium [Vitamin C] 500 mg PO DAILY 03/24/14 Amlodipine Besylate [Norvasc -] 5 mg PO DAILY 12/04/18 Chlorhexidine Gluconate [Peridex -] 1 unit DAILY 12/05/18 Losartan/Hydrochlorothiazide 1 each PO DAILY 12/05/18 [Losartan-Hctz 100-12.5 mg Tab] Docusate Sodium [Colace -] 100 mg PO BID capsule 12/08/18 Enoxaparin [Lovenox -] 40 mg SQ DAILY 30 Days disp.syrin 12/08/18 Ferrous Sulfate [Feosol] 325 mg PO BID ud 12/08/18 ASSESSMENT AND PLAN: 78 year old female with history of HTN, Spinal Stenosis, HLD, s/p recent R hip arthroplasty s/p fall (on prophylactic enoxaparin post-op), presents with sudden onset R sided abdominal pain, with associated nausea - no vomiting/ diarrhea/melena/hematochezia. 1. Acute Pancreatitis Etiology unclear ?sec to thiazide diuretic Abdominal US - no cholelithiasis, findings suggestive of fatty liver Lipase 5549 TBil 1.3 Afebrile, Hemodynamically Stable. CT A/P - small non-obstructing bilateral calculi, hiatal hernia. No mannie of pancreatitis but scan was without contrast. TG 111 Continue NPO/IV hydration Morphine PRN GI following. 2. HTN - Continue Losartan, Norvasc. HCTZ held. 3. R Calf tenderness - Doppler negative for DVT 4. Positive UA, asymptomatic. Urine Cx - normal kurtis. No need for Abx therapy. 5. Acute Blood Loss anemia secondary to orthopedic surgery - on FeSO4 post-op. Anemia resolved. Will stop iron supplementation. 6. 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 Zuniga re: significance of findings. DVT Px - Lovenox SQ.
--- NOTE | 2019-01-03 21:42 | CON.GI ---
Consult Consult Specialty:: Gastroenterology Referred by:: Kris Faye MD Reason for Consultation:: Abdominal pain - History of Present Illness Chief Complaint: Right sided abdominal pain History of Present Illness: 78F developed severe right abdominal pain that radiated into her back upon trying to stand up yesterday. She was unable to get up and was BIBA. The pain has persisted but she has since been able to stand up and walk without aggravatng it. She has nausea but has not vomited,. Her lipase is elevated but the CT scan reveals no pancreatitis. She has never had pancreatitis. Sonogram reveals no gallstones, She drinks alcohol rarely. She had both and EGD and a colonoscopy with Dr Miller on 01/14/14 which revealed a large hiatal hernia with erosions and mild gastritis. Colonoscopy revealed severe diverticulosis and 2 tiny sigmoid polyps which were removed. Pathology revealed granulation tissue and changes suggestive of inflammatory bowel disease. This however had not become clinically evident. Ileal erosions were noted but biopsies did not support IBD. The studies were done to evaluate iron deficiency anemia. She and a subsequent capsule endoscopy with Dr Bass which was unrevealing. She had a right hip ORIF on 12/07/18 and was discharged form [facility] just a week ago. She was transfused following the surgery. She takes NSAIDs prn for arthritis back and joint pain. - History Source History Provided By: Patient Limitations to Obtaining History: No Limitations - Past Medical History Cardio/Vascular: Yes: HTN, Hyperlipdemia Gastrointestinal: Yes: Diverticulosis, Hiatal Hernia (large with erosion on 2013 EGD), Other (benign sigmoid polyps 2013) Heme/Onc: Yes: Anemia Dermatology: Yes: Basal Cell (right chest wall excised) Additional Medical History: Cataracts. DJD - Past Surgical History Past Surgical History: Yes: Breast Biopsy (benign right breast lumpectomy), Colonoscopy, Joint Replacement (right TKR), Tonsillectomy, Upper Endoscopy Additional Surgical History: Right hip ORIF 12/07/18. Excision of ganglionic cyst. 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 Place of : [facility] History of Recent Travel: No Home Medications - Allergies Allergies/Adverse Reactions: Allergies Allergy/AdvReac Type Severity Reaction Status Date / Time adhesive Allergy Intermediate Itching Verified 01/02/19 10:59 aspirin Allergy Intermediate POSS GI Verified 01/02/19 10:59 BLEEDING-ANEMIA NSAIDS (Non-Steroidal Allergy Intermediate POSS GI Verified 01/02/19 10:59 Anti-Inflamma BLEEDING-ANEMIA polyethylene glycol 3350 Allergy Intermediate ITCHING, Verified 01/02/19 10:59 [From Miralax] HIVES ranitidine Allergy Intermediate Itching, Verified 01/02/19 10:59 HIVES latex Allergy Itching Verified 01/02/19 10:59 BANDAIDS Allergy Intermediate ITCHING, Uncoded 01/02/19 10:59 HIVES - Home Medications Home Medications: Ambulatory Orders Ascorbate Calcium [Vitamin C] 500 mg PO DAILY 03/24/14 Amlodipine Besylate [Norvasc -] 5 mg PO DAILY 12/04/18 Chlorhexidine Gluconate [Peridex -] 1 unit DAILY 12/05/18 Losartan/Hydrochlorothiazide [Losartan-Hctz 100-12.5 mg Tab] 1 each PO DAILY Family Disease History - Family Disease History Family Disease History: Other: Father ( 78 alcoholic cirrhosis), Mother ( 87 of CVAs) Review of Systems - Review of Systems Constitutional: reports: No Symptoms Eyes: reports: No Symptoms Neck: reports: No Symptoms Cardiovascular: reports: No Symptoms Respiratory: reports: No Symptoms Gastrointestinal: reports: Abdominal Pain, Nausea Musculoskeletal: reports: Joint Pain Physical Exam-GI Vital Signs: Vital Signs Temperature 99.3 F 01/03/19 21:33 Pulse Rate 86 01/03/19 21:33 Respiratory Rate 18 01/03/19 21:33 Blood Pressure 132/73 01/03/19 21:33 O2 Sat by Pulse Oximetry (%) 95 01/03/19 09:00 CBC,CMP WBC 7.7 K/mm3 (4.0-10.0) 01/03/19 07:25 RBC 3.60 M/mm3 (3.60-5.2) 01/03/19 07:25 Hgb 11.1 GM/dL (10.7-15.3) 01/03/19 07:25 Hct 33.4 % (32.4-45.2) 01/03/19 07:25 MCV 92.7 fl (80-96) 01/03/19 07:25 MCH 30.9 pg (25.7-33.7) 01/03/19 07:25 MCHC 33.3 g/dl (32.0-36.0) 01/03/19 07:25 RDW 15.6 % (11.6-15.6) 01/03/19 07:25 Plt Count 303 K/MM3 (134-434) 01/03/19 07:25 MPV 7.0 fl (7.5-11.1) L 01/03/19 07:25 Absolute Neuts (auto) 6.4 K/mm3 (1.5-8.0) 01/03/19 07:25 Neutrophils % 83.0 % (42.8-82.8) H 01/03/19 07:25 Lymphocytes % 8.8 % (8-40) 01/03/19 07:25 Monocytes % 7.6 % (3.8-10.2) 01/03/19 07:25 Eosinophils % 0.4 % (0-4.5) D 01/03/19 07:25 Basophils % 0.2 % (0-2.0) 01/03/19 07:25 Nucleated RBC % 0 % (0-0) 01/03/19 07:25 Sodium 135 mmol/L (136-145) L 01/03/19 07:25 Potassium 3.7 mmol/L (3.5-5.1) 01/03/19 07:25 Chloride 100 mmol/L (98-107) 01/03/19 07:25 Carbon Dioxide 26 mmol/L (21-32) 01/03/19 07:25 Anion Gap 8 MMOL/L (8-16) 01/03/19 07:25 BUN 8.5 mg/dL (7-18) 01/03/19 07:25 Creatinine 0.6 mg/dL (0.55-1.3) 01/03/19 07:25 Est GFR (CKD-EPI)AfAm 100.48 01/03/19 07:25 Est GFR (CKD-EPI)NonAf 86.69 01/03/19 07:25 Random Glucose 118 mg/dL (74-106) H 01/03/19 07:25 Calcium 9.0 mg/dL (8.5-10.1) 01/03/19 07:25 Phosphorus 3.3 mg/dL (2.5-4.9) 01/03/19 07:25 Magnesium 2.0 mg/dL (1.8-2.4) 01/03/19 07:25 Total Bilirubin 1.3 mg/dL (0.2-1) H 01/03/19 07:25 AST 63 U/L (15-37) H 01/03/19 07:25 ALT 46 U/L (13-61) 01/03/19 07:25 Alkaline Phosphatase 168 U/L (45-117) H 01/03/19 07:25 Creatine Kinase 80 U/L (26-192) 01/02/19 13:16 Troponin I < 0.02 ng/ml (0.00-0.05) 01/02/19 13:16 Total Protein 6.3 g/dl (6.4-8.2) L 01/03/19 07:25 Albumin 3.1 g/dl (3.4-5.0) L 01/03/19 07:25 Triglycerides 111 mg/dL (0-150) 01/03/19 07:25 Cholesterol 160 mg/dL (50-200) 01/03/19 07:25 Total LDL Cholesterol 78 mg/dL (5-100) 01/03/19 07:25 HDL Cholesterol 65 mg/dL (40-60) H 01/03/19 07:25 Lipase 5549 U/L (73-393) H 01/02/19 13:16 Current Medications Generic Name Dose Route Start Last Admin Trade Name Freq PRN Reason Stop Dose Admin Amlodipine Besylate 5 mg 01/02/19 20:45 01/03/19 09:35 Norvasc - PO 5 mg DAILY PORTILLO Administration Enoxaparin Sodium 40 mg 01/03/19 10:00 01/03/19 09:35 Lovenox - SQ 40 mg DAILY PORTILLO Administration Dextrose/Lactated Ringer's 1,000 mls @ 200 mls/hr 01/03/19 10:29 01/03/19 15: 22 D5-Lr - IV 200 mls/hr ASDIR PORTILLO Administration Losartan Potassium 100 mg 01/03/19 10:00 01/03/19 09:35 Cozaar - PO 100 mg DAILY PORTILLO Administration Morphine Sulfate 1 mg 01/02/19 18:24 01/03/19 19:54 Morphine Sulfate IVPB 1 mg Q4H PRN Administration PAIN LEVEL 6-10 Constitutional: Yes: Calm Eyes: Yes: Conjunctiva Clear HENT: Yes: Normocephalic Neck: Yes: Supple Cardiovascular: Yes: Regular Rate and Rhythm Respiratory: Yes: CTA Bilaterally Gastrointestinal Inspection: Yes: WNL ...Auscultate: Yes: Normoactive Bowel Sounds ...Palpate: Yes: Soft, Other (nontender) ...Rectal Exam: Yes: Guaiac Negative (brown g neg stool, no rectal masses) Edema: No Labs: CBC, BMP 01/03/19 07:25 01/03/19 07:25 INR, PTT INR 1.03 (0.83-1.09) 01/02/19 13:16 Imaging - Results Cat Scan: Report Reviewed ( Final Report CT ABDOMEN & PELVIS CT W/O CONTR Show Printer-Friendly Version Patient Name: Susie Gonzalez : Jul-1940 ID: [id number] Study Date: 02-Jan-2019 17:45 Diana Pavilijoel Name: SUSIE GONZALEZ DEPARTMENT OF RADIOLOGY Phys: Kris Faye MD : Age: 78 Sex: F [facility] Acct: [id number] Loc: [address] Exam Date: 01/02/19 Status: [place] [address] Unit Number: [id number] EXAM#: TYPE/EXAM: RESULT: [id number] CT/ABDOMEN PELVIS CT W/O CONTR Abdomen and pelvis CT without contrast CLINICAL INFORMATION: acute pancreatitis Multiplanar imaging was performed. Intravenous contrast was not administered. Oral contrast was administered. No prior CT/MRI studies are available at this facility for direct comparison. A large hiatal hernia is noted. There is no evidence of pneumoperitoneum, free intraperitoneal fluid or bowel obstruction. The gallbladder appears mildly overdistended. No radiopaque gallbladder calculus is identified. There is no definite biliary tract dilatation. Several 2 to 3 mm nonobstructing bilateral renal calculi are visualized. The kidneys appear unremarkable in overall size. The liver , spleen, adrenal glands and pancreas demonstrate no obvious noncontrast pathology. There is no aortic aneurysm. No definite lymphadenopathy is identified. Small calcified uterine leiomyomas. No CT evidence of acute appendicitis or diverticulitis. There is no gross small bowel pathology. The visualized osseous structures demonstrate no obvious CT evidence of acute abnormality. Prominent multilevel lumbar degenerative disc and facet joint changes are noted. L4-L5 grade 1 degenerative spondylolisthesis. IMPRESSION: The pancreas demonstrates no discrete noncontrast pathology. Early/mild acute pancreatitis may not be demonstrable on CT or MRI. Clinical/ laboratory correlation is suggested. Follow-up CT/MRI may be performed. Small nonobstructing bilateral renal calculi. Colonic diverticulosis. Large hiatal hernia. Status post right hip ORIF. Partially ununited hip fracture. Reported By: Sukhdev Graham MD 01/03/1936 Technologist: Russ Daniels Transcribed Date/Time: 01/03/1936 Paint Roller Covermaker: Sukhdev Graham Printed Date/Time: By: Signed by: Sukhdev Graham Signed on: 03-Jan-2019 00:38) Problem List - Problems (1) Abdominal pain Assessment/Plan: Vomiting would have been expected with pancreatitis. There is no CT evidence to substantiate this so the lipase may be form another intestinal portion origin. Given her NSAID usage and recent stress of an ORIF an ulcer has to be considered. Code(s): R10.9 - UNSPECIFIED ABDOMINAL PAIN (2) Colon polyp Code(s): K63.5 - POLYP OF COLON (3) Diverticulosis Code(s): K57.90 - DVRTCLOS OF INTEST, PART UNSP, W/O PERF OR ABSCESS W/O BLEED (4) Hiatal hernia Code(s): K44.9 - DIAPHRAGMATIC HERNIA WITHOUT OBSTRUCTION OR GANGRENE (5) Acute pancreatitis Code(s): K85.90 - ACUTE PANCREATITIS WITHOUT NECROSIS OR INFECTION, UNSP Qualifiers: Pancreatitis type: unspecified pancreatitis type Acute pancreatitis complication: unspecified Qualified Code(s): K85.90 - Acute pancreatitis without necrosis or infection, unspecified (6) Anemia Code(s): D64.9 - ANEMIA, UNSPECIFIED (7) Hip fracture Code(s): S72.009A - FRACTURE OF UNSP PART OF NECK OF UNSP FEMUR, INIT (8) Iron deficiency Code(s): E61.1 - IRON DEFICIENCY Assessment/Plan Assessment: - Vomiting would have been expected with pancreatitis. There is no CT evidence to substantiate this so the lipase may be from another intestinal portion origin. Given her NSAID usage and recent stress of an ORIF an ulcer has to be considered. - Personal h/o large hiatal hernia with erosions - Diverticulosis - H/O benign colon polyps Plan: -- I have proposed an EGD to exclude an NSAID or stress induced ulcer as I cannot substantiate pancreatitis. I have informed Susie of the potential for such complications as perforation and hemorrhage. She has granted an informed consent. I will schedule for tomorrow -- I will consult Dr Zuniga as Susie was due to see tomorrow for a wound check and to have him exclude the hip as the source of her pain. There is nonunion on CT at the fracture site
[2019-01-04] MEDS: MORPHINE SULFATE 2 MG/ML VIAL IVPB PRN ×4 (01:02→20:21)
[2019-01-04] MEDS: DEXTROSE 5%-LACTATED RINGERS 1,000 ML IV SCH ×2 (02:33→09:49)
[2019-01-04 08:18] LABS: BASO % 0.4 % (0-2.0); EOS % 0.7 % (0-4.5); HEMOGLOBIN 10.9 GM/dL (10.7-15.3); LYMPH % 15.5 % (8-40); MCH 30.9 pg (25.7-33.7); MCHC 33.2 g/dl (32.0-36.0); MEAN CELL VOLUME 93.2 fl (80-96); MEAN PLT VOLUME 7.2 fl (7.5-11.1); MONO % 9.6 % (3.8-10.2); NEUT % 73.8 % (42.8-82.8); PLATELET COUNT 280 K/MM3 (134-434); RBC 3.54 M/mm3 (3.60-5.2); RDW 15.4 % (11.6-15.6); WHITE BLOOD COUNT 7.7 K/mm3 (4.0-10.0)
--- NOTE | 2019-01-04 08:46 | CONSULT ---
Consult - text type - Consultation Consultation Note: ORTHOPEDIC SURGERY CONSULTATION NOTE Department of Orthopedic Surgery HISTORY OF PRESENT ILLNESS Ms. Dietz is a 78 year old femalewith PMHx of HTN, Spinal stenosis, HLD who recently visited [facility] x2, presents with sudden onset abdominal pain. Patient was recently admitted to [facility] in 12/04/18 after a fall, found to have right intertrochanteric femur fracture, repaired via IM Nail fixation on 12/05/18. She was seen at her first post op visit on 12/21/18, where her nena were removed and steri-strips were applied. Patient was scheduled for another wound check in my office on 01/08/19 to confirm that a small subcutaneous hematoma had resolved. She called the office complaining of right calf pain on 01/01/19, and was told to go to the ER urgently to rule out DVT. Patient went to [facility] ED on 02/09; her DVT workup was negative and she was discharged home. On 01/02/19, patient had sudden onset 10/10 sharp abdominal pain that radiated through to her back. This was the first time she experienced pain like this prompting her to alert EMS. The orthopedic service was consulted for an inpatient wound check and for evaluation of imaging. She is 4 weeks post operative from her Right Hip IMN. The patient denies any pain to her hip or RLE currently. The patient is complaining of moderate abdominal pain currently, better controlled after IV morphine. Denies any other injuries. Denies numbness, tingling. The patient lives at home and uses a walker for assistive devices at baseline. FAMILY HISTORY non-contributory REVIEW OF SYMPTOMS A twelve-point review of systems was performed and was negative except as noted in HPI. PHYSICAL EXAM Constitutional: Alert and oriented to person, place, and time. Appears well- developed and well-nourished. No acute distress, appropriate mood and affect. Right Lower Extremity: Skin warm, dry, and intact; no lesions, rashes or ulcers noted. All incisions healed with no signs of infection. Patient's subQ hematoma seen in office at her last visit resolved completely. Muscle mass equal and symmetric to contralateral side. No atrophy noted. No masses or effusions noted. No tenderness to palpation all joints; nontender throughout rest of extremity. Patient able to straight leg raise with no pain in her hip or groin. Patient able to flex hip to 100 degrees with no pain. Negative log roll. No cords or calf tenderness. No significant calf/ankle edema. Full passive and active ROM of the hip and knee, free from pain. Joints stable with no pathologic laxity. EHL/TA/GS motor intact; SILT distally; 2+ DP pulses; Cap refill brisk. Tone and reflexes normal. Left Lower Extremity: Skin warm, dry, and intact; no lesions, rashes or ulcers noted. Muscle mass equal and symmetric to contralateral side. No atrophy noted. No masses or effusions noted. No tenderness to palpation all joints; nontender throughout rest of extremity. No cords or calf tenderness. No significant calf/ ankle edema. Full passive and active ROM, free from pain. Joints stable with no pathologic laxity. EHL/TA/GS motor intact; SILT distally; 2+ DP pulses; Cap refill brisk. Tone and reflexes normal. Active Problems Problem Status Category Onset Abdominal pain Acute Medical Acute pancreatitis Acute Medical Colon polyp Acute Medical Diverticulosis Acute Medical Hiatal hernia Acute Medical Past Medical History Cardio/Vascular HTN,Hyperlipdemia Gastrointestinal Diverticulosis,Hiatal Hernia,Other Heme/Onc Anemia Dermatology Basal Cell Additional Medical History Cataracts DJD Past Surgical History Past Surgical History Breast Biopsy,Colonoscopy,Joint Replacement, Tonsillectomy,Upper Endoscopy Social History Smoking history Former smoker Aproximately how many 20 cigarettes per day If you are a former smoker, 1995 when did you quit? 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 History of Recent Travel No Allergies Allergy/AdvReac Type Severity Reaction Status Date / Time adhesive Allergy Intermediate Itching Verified 01/02/19 10:59 aspirin Allergy Intermediate POSS GI Verified 01/02/19 10:59 BLEEDING-ANEMIA NSAIDS (Non-Steroidal Allergy Intermediate POSS GI Verified 01/02/19 10:59 Anti-Inflamma BLEEDING-ANEMIA polyethylene glycol 3350 Allergy Intermediate ITCHING, Verified 01/02/19 10:59 [From Miralax] HIVES ranitidine Allergy Intermediate Itching, Verified 01/02/19 10:59 HIVES latex Allergy Itching Verified 01/02/19 10:59 BANDAIDS Allergy Intermediate ITCHING, Uncoded 01/02/19 10:59 HIVES Active Medications Generic Name Dose Route Start Last Admin Trade Name Freq PRN Reason Stop Dose Admin Amlodipine Besylate 5 mg 01/02/19 20:45 01/03/19 09:35 Norvasc - PO 5 mg DAILY PORTILLO Administration Enoxaparin Sodium 40 mg 01/03/19 10:00 01/03/19 09:35 Lovenox - SQ 40 mg DAILY PORTILLO Administration Dextrose/Lactated Ringer's 1,000 mls @ 200 mls/hr 01/03/19 10:29 01/04/19 02: 33 D5-Lr - IV 200 mls/hr ASDIR PORTILLO Administration Losartan Potassium 100 mg 01/03/19 10:00 01/03/19 09:35 Cozaar - PO 100 mg DAILY PORTILLO Administration Morphine Sulfate 1 mg 01/02/19 18:24 01/04/19 01:02 Morphine Sulfate IVPB 1 mg Q4H PRN Administration PAIN LEVEL 6-10 Pantoprazole Sodium 40 mg 01/04/19 10:00 Protonix Iv IVPUSH BID [facility] Vital Signs (last) Temp Pulse Resp BP Pulse Ox 97.9 F 89 18 109/56 L 96 01/04/19 06:00 01/04/19 06:00 01/04/19 06:00 01/04/19 06:00 01/03/19 21:00 Intake and Output 01/02/19 01/03/19 01/04/19 23:59 23:59 23:59 Intake Total 0 1800 1400 Balance 0 1800 1400 Intake: IV 1800 1400 D5-Lr - 1,000 ml @ 100 1000 mls/hr IV ASDIR PORTILLO Rx#: [id number] D5-Lr - 1,000 ml @ 703 [id number] 3129 mls/hr IV ASDIR [facility] Rx#: [id number] Oral 0 0 Other: Voiding Method Toilet Toilet Toilet # Unmeasured Voids Void 1 2 Bowel Movement No Weight 133 lb 3 oz Height 5 ft 3 in Body Mass Index (BMI) 23.6 Weight Measurement Method Standing Scale Weight Measurement Method Est/Stated by Patient Laboratory 01/04/19 07:16 PT with INR 12.10 SEC (9.7-13.0) 01/02/19 13:16 IMAGING I personally reviewed CT, and other imaging. They demonstrate all implants in place. The components are in adequate alignment with no evidence of loosening or implant failure. The fracture has healed. There are no changes displacement of lesser trochanteric fracture since surgical procedure. ASSESSMENT AND PLAN Ms. Dietz is a 78 year old female presenting status post Right HIP IMN (Date of Surgery 12/05/18). We have reviewed the imaging and clinical findings in detail, as well as their potential implications. After appropriate informed discussion, we agreed on the following plan: - Pain control - DVT prophylaxis - Ice to right hip - Appreciate Medical and GI management (Nutrition optimization, decubitus precautions heel/sacrum) - Physical Therapy: WBAT RLE - Patient has minimal to no pain in her right hip with ambulation and with active and passive range of motion to the hip. Her subQ hematoma has resolved, and her incisions are healed with no signs of infection. The patient can follow up in my office 2 weeks after discharge for new X-rays and further follow up for her post-operatively. - No further orthopedic surgical intervention at this time. Elmer Zuniga, DO Orthopedic Surgery
[2019-01-04 09:01] LABS: ALBUMIN 2.9 g/dl (3.4-5.0); BILIRUBIN,TOTAL 1.6 mg/dL (0.2-1); BLOOD UREA NITROGEN 5.2 mg/dL (7-18); CALCIUM 9.1 mg/dL (8.5-10.1); CREATININE 0.5 mg/dL (0.55-1.3); MAGNESIUM 1.8 mg/dL (1.8-2.4); PHOSPHOROUS 3.1 mg/dL (2.5-4.9); POTASSIUM 3.7 mmol/L (3.5-5.1)
[2019-01-04] MEDS: amLODIPine BESYLATE 5 MG TABLET (FP) PO SCH (09:49)
[2019-01-04] MEDS: LOSARTAN POTASSIUM 50 MG TABLET (FP) PO SCH (09:49)
[2019-01-04] MEDS ORDERED: PANTOPRAZOLE SODIUM 40 MG VIAL IVPUSH SCH (10:00)
--- NOTE | 2019-01-04 11:54 | PN ---
Progress Note (short form) - Note Progress Note: GI NOte: Please see EGD report. Susie has diffuse gastritis but no overt ulcers that would account for her pain or pancreatitis. Clinically doubt pancreatitis so will allow her to eat. Problem List - Problems (1) Abdominal pain Code(s): R10.9 - UNSPECIFIED ABDOMINAL PAIN (2) Colon polyp Code(s): K63.5 - POLYP OF COLON (3) Diverticulosis Code(s): K57.90 - DVRTCLOS OF INTEST, PART UNSP, W/O PERF OR ABSCESS W/O BLEED (4) Hiatal hernia Code(s): K44.9 - DIAPHRAGMATIC HERNIA WITHOUT OBSTRUCTION OR GANGRENE (5) Acute pancreatitis Code(s): K85.90 - ACUTE PANCREATITIS WITHOUT NECROSIS OR INFECTION, UNSP Qualifiers: Pancreatitis type: unspecified pancreatitis type Acute pancreatitis complication: unspecified Qualified Code(s): K85.90 - Acute pancreatitis without necrosis or infection, unspecified (6) Anemia Code(s): D64.9 - ANEMIA, UNSPECIFIED (7) Hip fracture Code(s): S72.009A - FRACTURE OF UNSP PART OF NECK OF UNSP FEMUR, INIT (8) Iron deficiency Code(s): E61.1 - IRON DEFICIENCY
[2019-01-04] MEDS ORDERED: MAG HYDROX/AL HYDROX/SIMETH 30 ML UNIT-DOSE CUP PO PRN (11:55)
--- NOTE | 2019-01-04 14:41 | CONSULT ---
- Consultation REQUESTING PROVIDER: Sylvester DUPREE CONSULT REQUEST: We have been asked to surgically evaluate this patient for RLQ pain PCP:Aram Phan MD HISTORY OF PRESENT ILLNESS: 78 y/o w/female admitted w/ RLQ pain not associated w/ any nausea and or vomiting; she has a h/o am ORIF of the right hip 1 nomth ago; pain is sharp and associated w/movement and ? weight bearing ?; she has been evaluated by Orthopedics. She denies any other GI//BILINGUAL RECRUITER c/o. She had an EGD today; results are reviewed. Pain has no radiation and is constant w/r/t time. PMHx: htn PSHx: no abdominal surgery Home Medications Medication Instructions Recorded Ascorbate Calcium [Vitamin C] 500 mg PO DAILY 03/24/14 Amlodipine Besylate [Norvasc -] 5 mg PO DAILY 12/04/18 Chlorhexidine Gluconate [Peridex -] 1 unit DAILY 12/05/18 Losartan/Hydrochlorothiazide 1 each PO DAILY 12/05/18 [Losartan-Hctz 100-12.5 mg Tab] Allergies Allergy/AdvReac Type Severity Reaction Status Date / Time adhesive Allergy Intermediate Itching Verified 01/02/19 10:59 aspirin Allergy Intermediate POSS GI Verified 01/02/19 10:59 BLEEDING-ANEMIA NSAIDS (Non-Steroidal Allergy Intermediate POSS GI Verified 01/02/19 10:59 Anti-Inflamma BLEEDING-ANEMIA polyethylene glycol 3350 Allergy Intermediate ITCHING, Verified 01/02/19 10:59 [From Miralax] HIVES ranitidine Allergy Intermediate Itching, Verified 01/02/19 10:59 HIVES latex Allergy Itching Verified 01/02/19 10:59 BANDAIDS Allergy Intermediate ITCHING, Uncoded 01/02/19 10:59 HIVES REVIEW OF SYSTEMS: CONSTITUTIONAL: Absent: fever, chills, diaphoresis, generalized weakness, malaise, loss of appetite, weight change CARDIOVASCULAR: Absent: chest pain, syncope, palpitations, irregular heart rate, lightheadedness , peripheral edema RESPIRATORY: Absent: cough, shortness of breath, dyspnea with exertion, wheezing, stridor, hemoptysis GASTROINTESTINAL: Absent: abdominal pain, abdominal distension, nausea, vomiting, diarrhea, constipation, melena, hematochezia GENITOURINARY: Absent: dysuria, frequency, urgency, hesitancy, hematuria, flank pain, genital pain MUSCULOSKELETAL: Absent: myalgia, arthralgia, joint swelling, back pain, neck pain SKIN: Absent: rash, itching, pallor HEMATOLOGIC/IMMUNOLOGIC: Absent: easy bleeding, easy bruising, lymphadenopathy NEUROLOGIC: Absent: headache, focal weakness, paresthesias, dizziness, unsteady gait, seizure, mental status changes, bladder or bowel incontinence PSYCHIATRIC: Absent: anxiety, depression, suicidal or homicidal ideation, hallucinations. PHYSICAL EXAM: GENERAL: Awake, alert, and fully oriented, in no acute distress. HEAD: Normal with no signs of trauma. EYES:, sclera anicteric, conjunctiva clear. NECK: Normal ROM, supple without lymphadenopathy, JVD, or masses. ABDOMEN: Soft, nontender, not distended, normoactive bowel sounds, no guarding, no rebound, no masses. No organomegaly. Tender to palpation over right ASIS o/ w negative. MUSCULOSKELETAL: Normal ROM at all joints. No bony deformities or tenderness. No CVA tenderness. UPPER EXTREMITIES: 2+ pulses, warm, well-perfused. No cyanosis. Cap refill <2 seconds. No peripheral edema. LOWER EXTREMITIES: 2+ pulses, warm, well-perfused. No calf tenderness. No peripheral edema. NEUROLOGICAL: Normal speech, gait not observed. PSYCH: Cooperative. Good eye contact. Appropriate mood and affect. SKIN: Warm, dry, normal turgor, no rashes or lesions noted. Vital Signs Temperature 98.1 F 01/04/19 14:04 Pulse Rate 82 01/04/19 14:04 Respiratory Rate 20 01/04/19 14:04 Blood Pressure 129/63 01/04/19 14:04 O2 Sat by Pulse Oximetry (%) 100 01/04/19 14:04 Lab Results WBC 7.7 K/mm3 (4.0-10.0) 01/04/19 07:16 RBC 3.54 M/mm3 (3.60-5.2) L 01/04/19 07:16 Hgb 10.9 GM/dL (10.7-15.3) 01/04/19 07:16 Hct 33.0 % (32.4-45.2) 01/04/19 07:16 MCV 93.2 fl (80-96) 01/04/19 07:16 MCHC 33.2 g/dl (32.0-36.0) 01/04/19 07:16 RDW 15.4 % (11.6-15.6) 01/04/19 07:16 Plt Count 280 K/MM3 (134-434) 01/04/19 07:16 Sodium 135 mmol/L (136-145) L 01/04/19 07:16 Potassium 3.7 mmol/L (3.5-5.1) 01/04/19 07:16 Chloride 98 mmol/L (98-107) 01/04/19 07:16 Carbon Dioxide 30 mmol/L (21-32) 01/04/19 07:16 Anion Gap 7 MMOL/L (8-16) L 01/04/19 07:16 BUN 5.2 mg/dL (7-18) L 01/04/19 07:16 Creatinine 0.5 mg/dL (0.55-1.3) L 01/04/19 07:16 Random Glucose 122 mg/dL (74-106) H 01/04/19 07:16 Calcium 9.1 mg/dL (8.5-10.1) 01/04/19 07:16 INR 1.03 (0.83-1.09) 01/02/19 13:16 Imaging w/u to date reviewed. IMP: Musculoskeletal pain; no evidence of an acute surgical abdomen any general surgery pathology at this time PLAN: per the primary team; reconsult as needed. Terence Santana FACS
--- NOTE | 2019-01-04 17:25 | PN ---
Physical Exam: SUBJECTIVE: 78 year old female with history of HTN, Spinal Stenosis, HLD, s/p recent R hip arthroplasty s/p fall (on prophylactic enoxaparin post-op), presents with sudden onset RIGHT sided abdominal pain with associated nausea. Pt seen at bedside. She c/o abdominal pain located on the RIGHT and has had consistent presentation. She denies vomiting, fever, and diarrhea. She denies hematochezia. OBJECTIVE: Vital Signs Period Temp Pulse Resp BP Sys/De Santiago Pulse Ox Last 24 Hr 97.9 F-99.7 F 72-98 16-20 89-133/32-73 96-100 GENERAL: AOx3, in no acute distress. HEAD: NCAT EYES: SALO, EOMI, conjunctiva clear. ENT: Ears normal, nares patent, oropharynx clear without exudates. Moist mucous membranes. NECK: Normal range of motion, supple without lymphadenopathy, JVD, or masses. LUNGS: CTAB. No wheezes, and no crackles. No accessory muscle use. HEART: RRR s1 s2 ABDOMEN: Tender to palpation on right. Soft, BS present in all 4 quadrants, non -distended, no JVD, MUSCULOSKELETAL: No bony deformities or tenderness. No CVA tenderness. UPPER EXTREMITIES: 2+ pulses, warm, well-perfused. No cyanosis. No clubbing. No peripheral edema. LOWER EXTREMITIES: 2+ pulses, warm, well-perfused. No calf tenderness. No peripheral edema. NEUROLOGICAL: Cranial nerves II-XII intact. Normal speech. Gait not appreciated. PSYCHIATRIC: Cooperative. Good eye contact. Appropriate mood and affect. SKIN: Warm, dry, normal turgor, no rashes or lesions noted, normal capillary refill. Laboratory Results - last 24 hr 01/04/19 01/04/19 01/04/19 07:16 07:16 07:16 WBC 7.7 RBC 3.54 L Hgb 10.9 Hct 33.0 MCV 93.2 MCH 30.9 MCHC 33.2 RDW 15.4 Plt Count 280 MPV 7.2 L Absolute Neuts (auto) 5.7 Neutrophils % 73.8 Lymphocytes % 15.5 D Monocytes % 9.6 Eosinophils % 0.7 Basophils % 0.4 Nucleated RBC % 0 Retic Count Sodium 135 L Potassium 3.7 Chloride 98 Carbon Dioxide 30 Anion Gap 7 L BUN 5.2 L Creatinine 0.5 L Est GFR (CKD-EPI)AfAm 106.69 Est GFR (CKD-EPI)NonAf 92.05 Random Glucose 122 H Calcium 9.1 Phosphorus 3.1 Magnesium 1.8 Iron TIBC Iron Saturation Unsaturated IBC Ferritin Total Bilirubin 1.6 H AST 19 ALT 29 Alkaline Phosphatase 156 H Creatine Kinase 55 C-Reactive Protein 8.7 H Total Protein 6.0 L Albumin 2.9 L Total Amylase 59 Lipase 260 01/04/19 01/04/19 07:16 07:16 WBC RBC Hgb Hct MCV MCH MCHC RDW Plt Count MPV Absolute Neuts (auto) Neutrophils % Lymphocytes % Monocytes % Eosinophils % Basophils % Nucleated RBC % Retic Count 0.67 Sodium Potassium Chloride Carbon Dioxide Anion Gap BUN Creatinine Est GFR (CKD-EPI)AfAm Est GFR (CKD-EPI)NonAf Random Glucose Calcium Phosphorus Magnesium Iron 16 L TIBC 240 L Iron Saturation 6 L Unsaturated IBC 224 Ferritin 389.7 H Total Bilirubin AST ALT Alkaline Phosphatase Creatine Kinase C-Reactive Protein Total Protein Albumin Total Amylase Lipase Active Medications Al Hydroxide/Mg Hydroxide (Mylanta Oral Suspension -) 30 ml PO Q6H PRN PRN Reason: DYSPEPSIA Amlodipine Besylate (Norvasc -) 5 mg PO DAILY [facility] Last Admin: 01/05/19 11:26 Dose: 5 mg Enoxaparin Sodium (Lovenox -) 40 mg SQ DAILY [facility] Last Admin: 01/05/19 11:26 Dose: 40 mg Losartan Potassium (Cozaar -) 100 mg PO DAILY [facility] Last Admin: 01/05/19 11:25 Dose: 100 mg Pantoprazole Sodium (Protonix -) 40 mg PO BID [facility] Last Admin: 01/05/19 21:16 Dose: 40 mg ASSESSMENT/PLAN: 78 y/o female with PMH HTN, Spinal Stenosis, HLD, s/p recent RIGHT hip arthroplasty s/p fall (on prophylactic enoxaparin post-op), presents with sudden onset RIGHT sided abdominal pain, with associated nausea. # Acute Abdominal Pain - Lipase 5,549, now WNL - Abdominal US: No cholelithiasis, fatty liver - TBil 1.3 - CT A/P pending - TG level pending - NPO/IV hydration - Morphine PRN - GI consulted: EGD; not likely acute pancreatitis - EGD: diffuse gastritis but no overt ulcers that would account for her pain or pancreatitis - CT A/P without contrast: Small non-obstructing bilateral calculi, hiatal hernia, no mannie of pancreatitis or appendicitis # HTN - Cont. home regimen of losartan, norvasc. - HOLD HCTZ # RIGHT Calf tenderness - Doppler negative for DVT # Positive UA, asymptomatic - Urine Cx pending - Hold abx pending urine cx result. # Acute blood loss anemia secondary to orthopedic surgery - FeSO4 post-op - Pt reports non-compliance - Anemia presently resolved - Hold iron supplementation. # Partially ununited hip fracture - CT finding - Ortho consulted: No need for intervention - WBAT - Ortho office follow up in 2 weeks # F/E/N - LR - Cont. to monitor - NPO # DVT prophylaxis - Lovenox SQ Kee Bright MD Visit type - Emergency Visit Emergency Visit: No - New Patient This patient is new to me today: No - Critical Care Critical Care patient: No - Discharge Referral Referred to [facility] Med P.C[facility] No ATTENDING PHYSICIAN STATEMENT I saw and evaluated the patient. I reviewed the resident's note and discussed the case with the resident. I agree with the resident's findings and plan as documented. SUBJECTIVE: OBJECTIVE: ASSESSMENT AND PLAN:
--- NOTE | 2019-01-04 17:53 | PN ---
Teaching Attending Note Name of Resident: Kee Bright ATTENDING PHYSICIAN STATEMENT I saw and evaluated the patient. I reviewed the resident's note and discussed the case with the resident. I agree with the resident's findings and plan as documented. SUBJECTIVE: Ongoing abdominal pain, nausea. No vomiting/diarrhea. No fever/ chills. OBJECTIVE: Afebrile, Hemodynamically Stable. Last Vital Signs Temp Pulse Resp BP Pulse Ox 98.1 F 82 18 129/63 100 01/04/19 14:01/04/19 14:01/04/19 14:01/04/19 14:01/04/19 14:04 Heart - S1, S2, RRR Lungs - clear to auscultation Abdomen - R sided abdominal tenderness, mostly in RLQ. Bowel Sounds normal. Extremities - Mild edema LEs. Some calf tenderness RLE. Neuro - AAO x 3. Moving all 4 extremities. Laboratory Results - last 24 hr 01/04/19 01/04/19 01/04/19 07:16 07:16 07:16 WBC 7.7 RBC 3.54 L Hgb 10.9 Hct 33.0 MCV 93.2 MCH 30.9 MCHC 33.2 RDW 15.4 Plt Count 280 MPV 7.2 L Absolute Neuts (auto) 5.7 Neutrophils % 73.8 Lymphocytes % 15.5 D Monocytes % 9.6 Eosinophils % 0.7 Basophils % 0.4 Nucleated RBC % 0 Retic Count Sodium 135 L Potassium 3.7 Chloride 98 Carbon Dioxide 30 Anion Gap 7 L BUN 5.2 L Creatinine 0.5 L Est GFR (CKD-EPI)AfAm 106.69 Est GFR (CKD-EPI)NonAf 92.05 Random Glucose 122 H Calcium 9.1 Phosphorus 3.1 Magnesium 1.8 Iron TIBC Iron Saturation Unsaturated IBC Ferritin Total Bilirubin 1.6 H AST 19 ALT 29 Alkaline Phosphatase 156 H Creatine Kinase 55 C-Reactive Protein 8.7 H Total Protein 6.0 L Albumin 2.9 L Total Amylase 59 Lipase 260 01/04/19 01/04/19 07:16 07:16 WBC RBC Hgb Hct MCV MCH MCHC RDW Plt Count MPV Absolute Neuts (auto) Neutrophils % Lymphocytes % Monocytes % Eosinophils % Basophils % Nucleated RBC % Retic Count 0.67 Sodium Potassium Chloride Carbon Dioxide Anion Gap BUN Creatinine Est GFR (CKD-EPI)AfAm Est GFR (CKD-EPI)NonAf Random Glucose Calcium Phosphorus Magnesium Iron 16 L TIBC 240 L Iron Saturation 6 L Unsaturated IBC 224 Ferritin 389.7 H Total Bilirubin AST ALT Alkaline Phosphatase Creatine Kinase C-Reactive Protein Total Protein Albumin Total Amylase Lipase Current Medications Generic Name Dose Route Start Last Admin Trade Name Freq PRN Reason Stop Dose Admin Al Hydroxide/Mg Hydroxide 30 ml 01/04/19 11:55 Mylanta Oral Suspension - PO Q6H PRN DYSPEPSIA Amlodipine Besylate 5 mg 01/02/19 20:45 01/04/19 09:49 Norvasc - PO 5 mg DAILY PROTILLO Administration Enoxaparin Sodium 40 mg 01/03/19 10:00 01/03/19 09:35 Lovenox - SQ 40 mg DAILY PORTILLO Administration Losartan Potassium 100 mg 01/03/19 10:00 01/04/19 09:49 Cozaar - PO 100 mg DAILY PORTILLO Administration Morphine Sulfate 1 mg 01/02/19 18:24 01/04/19 13:58 Morphine Sulfate IVPB 1 mg Q4H PRN Administration PAIN LEVEL 6-10 Pantoprazole Sodium 40 mg 01/04/19 22:00 Protonix - PO BID [facility] Home Medications Medication Instructions Recorded Ascorbate Calcium [Vitamin C] 500 mg PO DAILY 03/24/14 Amlodipine Besylate [Norvasc -] 5 mg PO DAILY 12/04/18 Chlorhexidine Gluconate [Peridex -] 1 unit DAILY 12/05/18 Losartan/Hydrochlorothiazide 1 each PO DAILY 12/05/18 [Losartan-Hctz 100-12.5 mg Tab] Docusate Sodium [Colace -] 100 mg PO BID capsule 12/08/18 Enoxaparin [Lovenox -] 40 mg SQ DAILY 30 Days disp.syrin 12/08/18 Ferrous Sulfate [Feosol] 325 mg PO BID ud 12/08/18 ASSESSMENT AND PLAN: 78 year old female with history of HTN, Spinal Stenosis, HLD, s/p recent R hip arthroplasty s/p fall (on prophylactic enoxaparin post-op), presents with sudden onset R sided abdominal pain, with associated nausea - no vomiting/ diarrhea/melena/hematochezia. 1. Non-specific abdominal pain, etiology unclear. s/p EGD 01/04 - shows Gastritis - on PPI Unlikely pancreatitis as per GI Lipase normalized. Abdominal US - no cholelithiasis, findings suggestive of fatty liver CT A/P without contrast - small non-obstructing bilateral calculi, hiatal hernia , no mannie of pancreatitis or appendicitis (but scan was without contrast). Will order repeat CT A/P with Contrast. Surgical consult for possible appendicitis given RLQ tenderness. Morphine PRN GI following. 2. HTN - Continue Losartan, Norvasc. HCTZ held. 3. R Calf tenderness - Doppler negative for DVT 4. Positive UA, asymptomatic. Urine Cx - normal kurtis. No need for Abx therapy. 5. Acute Blood Loss anemia secondary to orthopedic surgery - on FeSO4 post-op. Iron Sat 6%. Continue iron supplementation on discharge. 6. CT finding of partially ununited hip fracture - Ortho consulted - no need for intervention - for continued WBAT and Ortho office follow up in 2 weeks. DVT Px - Lovenox SQ. GI Px - PPI
[2019-01-04] MEDS: PANTOPRAZOLE 40 MG TABLET (FP) PO SCH (21:24)
[2019-01-05] MEDS: MORPHINE SULFATE 2 MG/ML VIAL IVPB PRN ×3 (00:34→11:27)
[2019-01-05 08:05] LABS: BASO % 0.3 % (0-2.0); EOS % 0.6 % (0-4.5); HEMATOCRIT 31.7 % (32.4-45.2); HEMOGLOBIN 10.5 GM/dL (10.7-15.3); LYMPH % 10.3 % (8-40); MCH 30.8 pg (25.7-33.7); MCHC 33.2 g/dl (32.0-36.0); MEAN CELL VOLUME 92.6 fl (80-96); MEAN PLT VOLUME 7.5 fl (7.5-11.1); MONO % 8.1 % (3.8-10.2); NEUT % 80.7 % (42.8-82.8); PLATELET COUNT 254 K/MM3 (134-434); RBC 3.42 M/mm3 (3.60-5.2); RDW 15.5 % (11.6-15.6)
[2019-01-05 08:49] LABS: ALBUMIN 2.6 g/dl (3.4-5.0); BILIRUBIN,TOTAL 1.4 mg/dL (0.2-1); BLOOD UREA NITROGEN 5.1 mg/dL (7-18); CALCIUM 8.6 mg/dL (8.5-10.1); CREATININE 0.5 mg/dL (0.55-1.3); MAGNESIUM 1.7 mg/dL (1.8-2.4); PHOSPHOROUS 3.5 mg/dL (2.5-4.9); POTASSIUM 3.4 mmol/L (3.5-5.1); TOT PROT 5.6 g/dl (6.4-8.2)
[2019-01-05] MEDS ORDERED: POTASSIUM CHLORIDE TABS 20 MEQ TABLET.ER (FP) PO ONE (08:54)
[2019-01-05] MEDS ORDERED: MAGNESIUM SULF 50% (8.12 MEQ/2 ML-1 GM VIAL) IVPB ONE (08:55)
[2019-01-05] MEDS: LOSARTAN POTASSIUM 50 MG TABLET (FP) PO SCH (11:25)
[2019-01-05] MEDS: amLODIPine BESYLATE 5 MG TABLET (FP) PO SCH (11:26)
[2019-01-05] MEDS: PANTOPRAZOLE 40 MG TABLET (FP) PO SCH ×2 (11:26→21:16)
[2019-01-05] MEDS: ENOXAPARIN NA (PORCINE) 40 MG/0.4 ML DISP.SYRIN SQ SCH (11:26)
--- NOTE | 2019-01-05 14:45 | PN ---
Physical Exam: SUBJECTIVE: Patient seen and examined this AM. Continues to have 5/10 Right sided abdominal pain, and 2 loose BMs after EGD. No associated fevers, chills. OBJECTIVE: Vital Signs Period Temp Pulse Resp BP Sys/De Santiago Pulse Ox Last 24 Hr 98.1 F-98.9 F 80-95 18-20 120-143/58-69 100-100 GENERAL: A&Ox3, NAD, tearful (she says out of frustration for being in the hospital) HEAD: NCAT EYES: PERRL, EOMI ENT: MMM NECK: Supple, No JVD LUNGS: CTAB. No wheezes, no crackles HEART: Regular rate and rhythm, normal S1 and S2 without murmur ABDOMEN: Soft, Tender to palpation in the RLQ and RUQ, not distended, + bowel sounds, no guarding, no rebound MUSCULOSKELETAL: No CVA tenderness. EXTREMITIES: 2+ pulses, No peripheral edema. NEUROLOGICAL: Cranial nerves II-XII intact. Normal speech. 5/5 muscle strength throughout. Gross sensation intact throughout. SKIN: Warm, dry Laboratory Results - last 24 hr 01/04/19 01/05/19 01/05/19 07:16 07:00 07:00 WBC 9.0 RBC 3.42 L Hgb 10.5 L Hct 31.7 L MCV 92.6 MCH 30.8 MCHC 33.2 RDW 15.5 Plt Count 254 MPV 7.5 Absolute Neuts (auto) 7.2 Neutrophils % 80.7 Lymphocytes % 10.3 D Monocytes % 8.1 Eosinophils % 0.6 Basophils % 0.3 Nucleated RBC % 0 Sodium 133 L Potassium 3.4 L Chloride 98 Carbon Dioxide 26 Anion Gap 10 BUN 5.1 L Creatinine 0.5 L Est GFR (CKD-EPI)AfAm 106.69 Est GFR (CKD-EPI)NonAf 92.05 Random Glucose 98 Calcium 8.6 Phosphorus 3.5 Magnesium 1.7 L Total Bilirubin 1.4 H AST 17 ALT 21 Alkaline Phosphatase 156 H Total Protein 5.6 L Albumin 2.6 L CA 19-9 Antigen 15 Microbiology 01/02/19 14:15 Urine - Urine Clean Catch Urine Culture - Final Normal Urogenital Yamilet Active Medications Al Hydroxide/Mg Hydroxide (Mylanta Oral Suspension -) 30 ml PO Q6H PRN PRN Reason: DYSPEPSIA Amlodipine Besylate (Norvasc -) 5 mg PO DAILY [facility] Last Admin: 01/05/19 11:26 Dose: 5 mg Enoxaparin Sodium (Lovenox -) 40 mg SQ DAILY [facility] Last Admin: 01/05/19 11:26 Dose: 40 mg Losartan Potassium (Cozaar -) 100 mg PO DAILY [facility] Last Admin: 01/05/19 11:25 Dose: 100 mg Morphine Sulfate (Morphine Sulfate) 1 mg IVPB Q4H PRN PRN Reason: PAIN LEVEL 6-10 Last Admin: 01/05/19 11:27 Dose: 1 mg Pantoprazole Sodium (Protonix -) 40 mg PO BID [facility] Last Admin: 01/05/19 11:26 Dose: 40 mg ASSESSMENT/PLAN: 78 y/o F with PMHx of HTN, Spinal stenosis, HLD who recently visited [facility] x2, presents with sudden onset Right sided abdominal pain. #Abdominal Pain -Unclear etiology; Unlikely due to Gastritis seen on EGD (01/04), Unlikely pancreatitis as per GI -CT A/P with contrast found interval development of pericholecystic fluid also seen within the adjacent humberto hepatis (acute cholecystitis versus reactive in nature secondary to adjacent inflammatory etiologies such as hepatitis or pancreatitis), no definite CT evidence of acute pancreatitis although mild/ early acute pancreatitis may not be demonstrable on CT or MRI. -Check CDiff -Surgery Reconsulted for possible intervention -PPI, Mylanta, Morphine -Hold ABx as pt is not febrile and without leukocytosis -GI consulted, appreciate rec's -Serial abdominal exams #HTN -Continue ARB, CCB; Hold thiazide #Positive UA -Asymptomatic -Micro noted above, hold off Abx #R Calf tenderness -DUPLEX negative, continue to monitor #FEN -No standing fluids -Replete Lytes PRN -Na controlled diet #PPx -DVT: Lovenox -GI: Pantoprazole Dispo: Med-surg Visit type - Emergency Visit Emergency Visit: Yes ED Registration Date: 01/02/19 Care time: The patient presented to the Emergency Department on the above date and was hospitalized for further evaluation of their emergent condition. - New Patient This patient is new to me today: No - Critical Care Critical Care patient: No ATTENDING PHYSICIAN STATEMENT I saw and evaluated the patient. I reviewed the resident's note and discussed the case with the resident. I agree with the resident's findings and plan as documented. SUBJECTIVE: OBJECTIVE: ASSESSMENT AND PLAN:
--- NOTE | 2019-01-05 15:19 | PN ---
Teaching Attending Note Name of Resident: Melinda Calix ATTENDING PHYSICIAN STATEMENT I saw and evaluated the patient. I reviewed the resident's note and discussed the case with the resident. I agree with the resident's findings and plan as documented. SUBJECTIVE: Tearful due to ongoing abdominal pain. Diarrhea x 3 since yesterday , No vomiting/diarrhea. No fever/chills. OBJECTIVE: Afebrile, Hemodynamically Stable. Last Vital Signs Temp Pulse Resp BP Pulse Ox 98.7 F 95 H 18 122/69 100 01/05/19 13:31 01/05/19 13:31 01/05/19 13:31 01/05/19 13:31 01/05/19 08:58 Heart - S1, S2, RRR Lungs - clear to auscultation Abdomen - R sided abdominal tenderness, RUQ/RLQ. Bowel Sounds normal. Extremities - Mild edema LEs. Some calf tenderness RLE. Good ROM about R hip. Neuro - AAO x 3. Moving all 4 extremities. Laboratory Results - last 24 hr 01/04/19 01/05/19 01/05/19 07:16 07:00 07:00 WBC 9.0 RBC 3.42 L Hgb 10.5 L Hct 31.7 L MCV 92.6 MCH 30.8 MCHC 33.2 RDW 15.5 Plt Count 254 MPV 7.5 Absolute Neuts (auto) 7.2 Neutrophils % 80.7 Lymphocytes % 10.3 D Monocytes % 8.1 Eosinophils % 0.6 Basophils % 0.3 Nucleated RBC % 0 Sodium 133 L Potassium 3.4 L Chloride 98 Carbon Dioxide 26 Anion Gap 10 BUN 5.1 L Creatinine 0.5 L Est GFR (CKD-EPI)AfAm 106.69 Est GFR (CKD-EPI)NonAf 92.05 Random Glucose 98 Calcium 8.6 Phosphorus 3.5 Magnesium 1.7 L Total Bilirubin 1.4 H AST 17 ALT 21 Alkaline Phosphatase 156 H Total Protein 5.6 L Albumin 2.6 L CA 19-9 Antigen 15 Current Medications Generic Name Dose Route Start Last Admin Trade Name Freq PRN Reason Stop Dose Admin Al Hydroxide/Mg Hydroxide 30 ml 01/04/19 11:55 Mylanta Oral Suspension - PO Q6H PRN DYSPEPSIA Amlodipine Besylate 5 mg 01/02/19 20:45 01/05/19 11:26 Norvasc - PO 5 mg DAILY PORTILLO Administration Enoxaparin Sodium 40 mg 01/03/19 10:00 01/05/19 11:26 Lovenox - SQ 40 mg DAILY PORTILLO Administration Losartan Potassium 100 mg 01/03/19 10:00 01/05/19 11:25 Cozaar - PO 100 mg DAILY PORTILLO Administration Morphine Sulfate 1 mg 01/02/19 18:24 01/05/19 11:27 Morphine Sulfate IVPB 1 mg Q4H PRN Administration PAIN LEVEL 6-10 Pantoprazole Sodium 40 mg 01/04/19 22:00 01/05/19 11:26 Protonix - PO 40 mg BID PORTILLO Administration Home Medications Medication Instructions Recorded Ascorbate Calcium [Vitamin C] 500 mg PO DAILY 03/24/14 Amlodipine Besylate [Norvasc -] 5 mg PO DAILY 12/04/18 Chlorhexidine Gluconate [Peridex -] 1 unit DAILY 12/05/18 Losartan/Hydrochlorothiazide 1 each PO DAILY 12/05/18 [Losartan-Hctz 100-12.5 mg Tab] Docusate Sodium [Colace -] 100 mg PO BID capsule 12/08/18 Enoxaparin [Lovenox -] 40 mg SQ DAILY 30 Days disp.syrin 12/08/18 Ferrous Sulfate [Feosol] 325 mg PO BID ud 12/08/18 ASSESSMENT AND PLAN: 78 year old female with history of HTN, Spinal Stenosis, HLD, s/p recent R hip arthroplasty s/p fall (on prophylactic enoxaparin post-op), presents with sudden onset R sided abdominal pain, with associated nausea - no vomiting/ diarrhea/melena/hematochezia. 1. Non-specific abdominal pain, etiology unclear, persisting. s/p EGD 01/04 - shows Gastritis - on PPI. Unlikely pancreatitis as per GI Lipase normalized. Abdominal US - no cholelithiasis, findings suggestive of fatty liver CT A/P shows development of pericholecystic fluid, suggestive of possible acute cholecystitis. Afebrile without leukocytosis - will hold of Abx. Surgical re-evaluation requested Morphine PRN GI following. 2. HTN - Continue Losartan, Norvasc. HCTZ held. 3. R Calf tenderness - Doppler negative for DVT 4. Positive UA, asymptomatic. Urine Cx - normal kurtis. No need for Abx therapy. 5. Acute Blood Loss anemia secondary to orthopedic surgery - on FeSO4 post-op. Iron Sat 6%. Continue iron supplementation on discharge. 6. CT finding of partially un-united hip fracture - Ortho consulted - no need for intervention - for continued WBAT and Ortho office follow up in 2 weeks. DVT Px - Lovenox SQ. GI Px - PPI
--- NOTE | 2019-01-05 17:02 | PN ---
Progress Note (short form) - Note Progress Note: Attending Surgeon Eating a regular diet w/o incident; passing flatus and having bowel movements; c /o pain intermittent on her lower right side VSS AF abdo-soft; flat and non tender; again point tenderness over her right anterior iliac spine at rest and when moving; o/w negative. WBC-nl F/U CT scan a/p reviewed; findings are non specific and not correlative w/exam; there is no evidence of appendicitis/diverticulitis or gallbladder disease IMP: likely non surgical pain and no evidence of an acute surgical abdomen. PLAN: If clinically indicated a HIDA scan can be done to r/o biliary dyskinesia and/or acalculous gallbladder disease though doubt given lack of nausea/ vomiting and post prandial abdominal pain; d/w the patient. Terence Santana MD FACS
[2019-01-05] MEDS ORDERED: ACETAMINOPHEN 1000 MG/100 ML VIAL (NON FORMULARY) IVPB ONE (22:43)
[2019-01-06 08:24] LABS: BASO % 0.4 % (0-2.0); EOS % 2.1 % (0-4.5); HEMATOCRIT 31.5 % (32.4-45.2); HEMOGLOBIN 10.5 GM/dL (10.7-15.3); LYMPH % 15.9 % (8-40); MCHC 33.4 g/dl (32.0-36.0); MEAN CELL VOLUME 92.8 fl (80-96); MEAN PLT VOLUME 7.4 fl (7.5-11.1); NEUT % 73.6 % (42.8-82.8); PLATELET COUNT 256 K/MM3 (134-434); RBC 3.39 M/mm3 (3.60-5.2); RDW 14.9 % (11.6-15.6); WHITE BLOOD COUNT 7.3 K/mm3 (4.0-10.0)
[2019-01-06 08:31] LABS: BLOOD UREA NITROGEN 11.1 mg/dL (7-18); CALCIUM 8.6 mg/dL (8.5-10.1); CREATININE 0.5 mg/dL (0.55-1.3); MAGNESIUM 2.3 mg/dL (1.8-2.4); PHOSPHOROUS 3.8 mg/dL (2.5-4.9); POTASSIUM 4.2 mmol/L (3.5-5.1)
[2019-01-06 10:06] LABS: HEP B CORE AB, TOT Negative (Negative)
[2019-01-06] MEDS: amLODIPine BESYLATE 5 MG TABLET (FP) PO SCH (10:12)
[2019-01-06] MEDS: LOSARTAN POTASSIUM 50 MG TABLET (FP) PO SCH (10:12)
[2019-01-06] MEDS: ENOXAPARIN NA (PORCINE) 40 MG/0.4 ML DISP.SYRIN SQ SCH (10:13)
[2019-01-06] MEDS: PANTOPRAZOLE 40 MG TABLET (FP) PO SCH ×2 (10:13→21:11)
[2019-01-06] MEDS: ACETAMINOPHEN 500 MG TABLET (FP) PO PRN ×2 (12:14→21:16)
--- NOTE | 2019-01-06 13:20 | PN ---
Progress Note (short form) - Note Progress Note: SUBJECTIVE: Abdominal pain improving. Diarrhea improving. No vomiting. No fever/ chills. Tolerating oral intake. OBJECTIVE: Afebrile, Hemodynamically Stable. Last Vital Signs Temp Pulse Resp BP Pulse Ox 98 F 78 18 127/62 100 01/06/19 10:58 01/06/19 10:58 01/06/19 10:58 01/06/19 10:58 01/06/19 09:00 Heart - S1, S2, RRR Lungs - clear to auscultation Abdomen - R sided abdominal tenderness improving. Bowel Sounds normal. Extremities - Mild edema LEs. Some calf tenderness RLE. Good ROM about R hip. Neuro - AAO x 3. Moving all 4 extremities. Laboratory Results - last 24 hr 01/04/19 01/06/19 01/06/19 07:16 07:00 07:00 WBC 7.3 RBC 3.39 L Hgb 10.5 L Hct 31.5 L MCV 92.8 MCH 31.0 MCHC 33.4 RDW 14.9 Plt Count 256 MPV 7.4 L Absolute Neuts (auto) 5.4 Neutrophils % 73.6 Lymphocytes % 15.9 D Monocytes % 8.0 Eosinophils % 2.1 D Basophils % 0.4 Nucleated RBC % 0 Sodium 132 L Potassium 4.2 Chloride 97 L Carbon Dioxide 28 Anion Gap 6 L BUN 11.1 Creatinine 0.5 L Est GFR (CKD-EPI)AfAm 106.69 Est GFR (CKD-EPI)NonAf 92.05 Random Glucose 105 Calcium 8.6 Phosphorus 3.8 Magnesium 2.3 RUDDY Screen Positive H RUDDY Homogeneous Pattern TNP RUDDY Nucleolar Pattern TNP RUDDY Spindle Lee Pattern TNP RUDDY Midbody Pattern TNP RUDDY Centriole Pattern TNP RUDDY Nuclear Dot Pattern TNP RUDDY PCNA Pattern TNP RUDDY Nuclear Membr Pat TNP RUDDY Speckled Pattern 1:320 H RUDDY Centromere Pattern TNP Hep A IgM Ab Confirm Negative Hepatitis A Ab Total Negative Hep Bs Antigen Negative Hep Bs Antibody Non reactive Hep B Core Total Ab Negative Hep B Core IgM Ab Negative Hepatitis Be Antibody Negative Hepatitis Be Antigen Negative Hep C Ab Diagnostic <0.1 Current Medications Generic Name Dose Route Start Last Admin Trade Name Freq PRN Reason Stop Dose Admin Acetaminophen 1,000 mg 01/06/19 10:06 01/06/19 12:14 Tylenol - PO 1,000 mg Q6H PRN Administration PAIN Al Hydroxide/Mg Hydroxide 30 ml 01/04/19 11:55 Mylanta Oral Suspension - PO Q6H PRN DYSPEPSIA Amlodipine Besylate 5 mg 01/02/19 20:45 01/06/19 10:12 Norvasc - PO 5 mg DAILY PORTILLO Administration Enoxaparin Sodium 40 mg 01/03/19 10:00 01/06/19 10:13 Lovenox - SQ 40 mg DAILY PORTILLO Administration Losartan Potassium 100 mg 01/03/19 10:00 01/06/19 10:12 Cozaar - PO 100 mg DAILY PORTILLO Administration Pantoprazole Sodium 40 mg 01/04/19 22:00 01/06/19 10:13 Protonix - PO 40 mg BID PORTILLO Administration Home Medications Medication Instructions Recorded Ascorbate Calcium [Vitamin C] 500 mg PO DAILY 03/24/14 Amlodipine Besylate [Norvasc -] 5 mg PO DAILY 12/04/18 Chlorhexidine Gluconate [Peridex -] 1 unit DAILY 12/05/18 Losartan/Hydrochlorothiazide 1 each PO DAILY 12/05/18 [Losartan-Hctz 100-12.5 mg Tab] Docusate Sodium [Colace -] 100 mg PO BID capsule 12/08/18 Enoxaparin [Lovenox -] 40 mg SQ DAILY 30 Days disp.syrin 12/08/18 Ferrous Sulfate [Feosol] 325 mg PO BID ud 12/08/18 ASSESSMENT AND PLAN: 78 year old female with history of HTN, Spinal Stenosis, HLD, s/p recent R hip arthroplasty s/p fall (on prophylactic enoxaparin post-op), presented with sudden onset R sided abdominal pain, with associated nausea - no vomiting. She developed episodic diarrhea, now appears to be resolved. No melena/hematochezia. 1. Non-specific abdominal pain, etiology unclear, likely Gastritis, appears to be resolving s/p EGD 01/04 - shows Gastritis - on PPI. Unlikely pancreatitis as per GI Lipase normalized. Diarrhea resolved, Cdiff negative. Abdominal US - no cholelithiasis, findings suggestive of fatty liver CT A/P shows development of pericholecystic fluid, suggestive of possible acute cholecystitis. Seen by Surgery - not for intervention. Afebrile without leukocytosis - will hold off Abx. GI following. 2. HTN - Continue Losartan, Norvasc. HCTZ held. 3. R Calf tenderness - Doppler negative for DVT 4. Positive UA, asymptomatic. Urine Cx - normal kurtis. No need for Abx therapy. 5. Acute Blood Loss anemia secondary to orthopedic surgery - on FeSO4 post-op. Iron Sat 6%. Continue iron supplementation on discharge. 6. CT finding of partially un-united hip fracture - Ortho consulted - no need for intervention - for continued WBAT and Ortho office follow up in 2 weeks. 7. Hypomagnesemia - resolved s/p repletion. DVT Px - Lovenox SQ. GI Px - PPI Visit type - Emergency Visit Emergency Visit: Yes ED Registration Date: 01/02/19 Care time: The patient presented to the Emergency Department on the above date and was hospitalized for further evaluation of their emergent condition. - New Patient This patient is new to me today: No - Critical Care Critical Care patient: No - Discharge Referral Referred to [facility] Med P.C.: No
[2019-01-07] MEDS: ACETAMINOPHEN 500 MG TABLET (FP) PO PRN ×2 (06:15→14:19)
[2019-01-07] MEDS: PANTOPRAZOLE 40 MG TABLET (FP) PO SCH (09:51)
[2019-01-07] MEDS: LOSARTAN POTASSIUM 50 MG TABLET (FP) PO SCH (09:51)
[2019-01-07] MEDS: ENOXAPARIN NA (PORCINE) 40 MG/0.4 ML DISP.SYRIN SQ SCH (09:51)
[2019-01-07] MEDS: amLODIPine BESYLATE 5 MG TABLET (FP) PO SCH (09:51)
--- NOTE | 2019-01-07 12:09 | PN.GI ---
GI Progress Note Subjective: GI NOte: Pain has resolved arguing against cholecystitis. Tolerating diet. Wants to go home - Objective Vital Signs: Vital Signs Temperature 97.8 F 01/07/19 09:35 Pulse Rate 73 01/07/19 09:35 Respiratory Rate 16 01/07/19 09:35 Blood Pressure 145/79 01/07/19 09:35 O2 Sat by Pulse Oximetry (%) 100 01/06/19 21:00 Laboratory Tests 01/02/19 01/02/19 01/03/19 13:16 13:16 07:25 WBC Total Bilirubin 1.3 H 1.3 H AST 23 63 H ALT 17 46 Alkaline Phosphatase 180 H 168 H Triglycerides 111 Lipase 5549 H 01/06/19 07:00 WBC 7.3 Total Bilirubin AST ALT Alkaline Phosphatase Triglycerides Lipase Constitutional: Calm ...Auscultate: Yes: Normoactive Bowel Sounds ...Palpate: Yes: Soft, Other (nontender) Labs: CBC, BMP 01/06/19 07:00 01/06/19 07:00 INR, PTT INR 1.03 (0.83-1.09) 01/02/19 13:16 Assessment/Plan Assessment: - Pain at ORIF site. - Personal h/o large hiatal hernia with erosions - Diverticulosis - H/O benign colon polyps Plan: -- No GI objections to discharge on PPI once a day -- F/U in office Problem List - Problems (1) Abdominal pain Code(s): R10.9 - UNSPECIFIED ABDOMINAL PAIN (2) Colon polyp Code(s): K63.5 - POLYP OF COLON (3) Diverticulosis Code(s): K57.90 - DVRTCLOS OF INTEST, PART UNSP, W/O PERF OR ABSCESS W/O BLEED (4) Hiatal hernia Code(s): K44.9 - DIAPHRAGMATIC HERNIA WITHOUT OBSTRUCTION OR GANGRENE (5) Acute pancreatitis Code(s): K85.90 - ACUTE PANCREATITIS WITHOUT NECROSIS OR INFECTION, UNSP Qualifiers: Pancreatitis type: unspecified pancreatitis type Acute pancreatitis complication: unspecified Qualified Code(s): K85.90 - Acute pancreatitis without necrosis or infection, unspecified (6) Anemia Code(s): D64.9 - ANEMIA, UNSPECIFIED (7) Hip fracture Code(s): S72.009A - FRACTURE OF UNSP PART OF NECK OF UNSP FEMUR, INIT (8) Iron deficiency Code(s): E61.1 - IRON DEFICIENCY
[2019-01-07 13:52] VITALS: BP 137/82; PULSE 92; TEMP 97.7
--- NOTE | 2019-01-07 18:42 | PATH ---
Surgical Pathology Report Patient Name: BECKI GONZALEZ Med. Rec. #: [id number] /Age/Gender: 1940 (Age: 78) / F Account: [id number] Location: [facility] MED/SURG Taken: 01/04/2019 Received: 01/04/2019 Reported: 01/07/2019 Physicians: Jasper Almodovar M.D. Specimen(s) Received A: SECOND PORTION DUODENUM AND DUODENAL BULB B: ANTRUM Clinical History Abdominal pain, r/o ulcer Postoperative diagnosis: Large hiatal hernia, erosive gastritis Final Diagnosis A. DUODENUM, SECOND PORTION AND DUODENAL BULB, BIOPSY: DUODENAL MUCOSA WITHOUT SIGNIFICANT PATHOLOGIC FINDINGS. B. 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 IMMUNOHISTOCHEMICAL STAIN FOR H. PYLORI IS NEGATIVE. Electronically Signed Nisha Hensley M.D. Gross Description A. Received in formalin, labeled "second portion duodenum and duodenal bulb" are 5 duffy, irregular portions of soft tissue ranging in size from 0.1-0.3 cm. in greatest dimension. The specimens are submitted in toto in one cassette. B. Received in formalin, labeled "antrum" are 3 duffy, irregular portions of soft tissue ranging in size from 0.2 to 0.5 cm. in greatest dimension. The specimens are submitted in toto in one cassette. MLSZ/01/04/2019 sanml/01/04/2019
--- NOTE | 2019-01-07 18:46 | PN ---
Teaching Attending Note Name of Resident: Kee Bright ATTENDING PHYSICIAN STATEMENT I saw and evaluated the patient. I reviewed the resident's note and discussed the case with the resident. I agree with the resident's findings and plan as documented. SUBJECTIVE: Abdominal pain improved. Diarrhea resolved. No vomiting. No fever/ chills. Tolerating oral intake. OBJECTIVE: Afebrile, Hemodynamically Stable. Last Vital Signs Temp Pulse Resp BP Pulse Ox 97.7 F 92 H 20 137/82 98 01/07/19 13:50 01/07/19 13:50 01/07/19 13:50 01/07/19 13:50 01/07/19 09:35 Heart - S1, S2, RRR Lungs - clear to auscultation Abdomen - Soft, R sided abdominal tenderness improved. Bowel Sounds normal. Extremities - Mild edema LEs. Some calf tenderness RLE. Good ROM about R hip. Neuro - AAO x 3. Moving all 4 extremities. Discharge Medications Medication Instructions Recorded Ascorbate Calcium [Vitamin C] 500 mg PO DAILY 03/24/14 Amlodipine Besylate [Norvasc -] 5 mg PO DAILY 12/04/18 Chlorhexidine Gluconate [Peridex -] 1 unit DAILY 12/05/18 Losartan/Hydrochlorothiazide 1 each PO DAILY 12/05/18 [Losartan-Hctz 100-12.5 mg Tab] Ferrous Sulfate [Iron] 325 mg PO BID 30 Days #60 tablet 01/07/19 Pantoprazole Sodium [Protonix -] 40 mg PO BID 30 Days #60 tablet.ec 01/07/19 ASSESSMENT AND PLAN: 78 year old female with history of HTN, Spinal Stenosis, HLD, s/p recent R hip arthroplasty s/p fall (on prophylactic enoxaparin post-op), presented with sudden onset R sided abdominal pain, with associated nausea - no vomiting. She developed episodic diarrhea, now appears to be resolved. No melena/hematochezia. 1. Non-specific abdominal pain, etiology unclear, likely Gastritis, resolved s/p EGD 01/04 - shows Gastritis - on PPI. Unlikely pancreatitis as per GI Lipase normalized. Diarrhea resolved, Cdiff negative. Abdominal US - no cholelithiasis, findings suggestive of fatty liver CT A/P shows development of pericholecystic fluid, suggestive of possible acute cholecystitis. Seen by Surgery - not for intervention. Afebrile without leukocytosis - will hold off Abx. GI evaluated. Medicaly optimized for discharge on PPI. 2. HTN - Continue Losartan, Norvasc. HCTZ held. 3. R Calf tenderness - Doppler negative for DVT 4. Positive UA, asymptomatic. Urine Cx - normal kurtis. No need for Abx therapy. 5. Acute Blood Loss anemia secondary to orthopedic surgery - on FeSO4 post-op. Iron Sat 6%. Continue iron supplementation on discharge. 6. CT finding of partially un-united hip fracture - Ortho consulted - no need for intervention - for continued WBAT and Ortho office follow up in 2 weeks. 7. Hypomagnesemia - resolved s/p repletion. DVT Px - Lovenox SQ. GI Px - PPI
== END 2019-01-07 14:50 | disposition home or self-care (01) | DRG 392 ==
LOC: JER 10:48 → JERBED 16:53 → J7W 21:43
PROC: 0DD68ZX Extraction of Stomach, Via Natural or Artificial Opening Endoscopic, Diagnostic (ICD-10-PCS; principal; 2019-01-04 11:15)
DX: K29.70 Gastritis, unspecified, without bleeding (principal); K81.0 Acute cholecystitis; K21.9 Gastro-esophageal reflux disease without esophagitis; K46.9 Unspecified abdominal hernia without obstruction or gangrene; K57.90 Diverticulosis of intestine, part unspecified, without perforation or abscess without bleeding; I10 Essential (primary) hypertension; M48.00 Spinal stenosis, site unspecified; E78.5 Hyperlipidemia, unspecified; K76.0 Fatty (change of) liver, not elsewhere classified; E83.42 Hypomagnesemia; K44.9 Diaphragmatic hernia without obstruction or gangrene; Z87.891 Personal history of nicotine dependence; Z96.651 Presence of right artificial knee joint
CPT/HCPCS: 36415; 71045-TC-FY; 74176-TC; 74177-TC; 76705-TC; 80048; 80053; 80061; 81003; 82150; 82550; 82728; 83540; 83550; 83690; 83721; 83735; 84100; 84484; 85025; 85044; 85610; 86038; 86140; 86301; 86704; 86706; 86707; 86708; 86709; 86803; 87086; 87324; 87340; 87449; 88305-TC; 93005; 93010; 93306-TC; 93971-TC; 94010; 97116-GP; 97161-GP; 99281-25; 99283-25; J0131; J7030; Q9967

== ENCOUNTER 2019-04-24 20:09 | Emergency (ER) | payer OTHER, MEDICARE ==
[2019-04-24 20:32] VITALS: BP 193/89; PULSE 105; TEMP 97.8; BMI 22.6
[2019-04-24] MEDS ORDERED: LIDOCAINE HCL 1%, 10 MG/ML (50 mL VIAL) SQ ONE (21:31)
--- NOTE | 2019-04-24 22:25 | CONSULT ---
Consult - text type - Consultation Consultation Note: ORTHOPEDIC SURGERY CONSULTATION NOTE Department of Orthopedic Surgery HISTORY OF PRESENT ILLNESS Ms. Dietz is a 78 year old right hand dominant female who presents to [facility] ER s/ p mechanical fall with right wrist pain. The orthopedic service was consulted for a right distal radius fracture. The injury occurred after a mechanical fall at home today. The patient notes pain and swelling at her right wrist. Denies any other injuries. Denies numbness, tingling or other constitutional complaints. Denies tobacco use, drug use, alcohol abuse. The patient lives alone at home and uses a cane as assistive device at baseline. FAMILY HISTORY non-contributory REVIEW OF SYMPTOMS A twelve-point review of systems was performed and was negative except as noted in HPI. PHYSICAL EXAM Constitutional: Alert and oriented to person, place, and time. Appears well- developed and well-nourished. No acute distress, appropriate mood and affect. Right Upper Extremity: Skin warm, dry; There is a superficial abrasion at her right elbow; no other lesions, rashes or ulcers noted. Muscle mass equal and symmetric to contralateral side. No atrophy noted. No masses or effusions noted.Tender to palpation at her distal radius with an obvious dorsal deformity ; nontender throughout rest of extremity. Full passive and active ROM of her shoulder and elbow and fingers, free from pain. LROM of the wrist with pain with rom; Joints stable with no pathologic laxity. M/R/U/MSK/AX motor intact; SILT distally; 2+ radial pulses; Cap refill brisk. Tone and reflexes normal. Left Upper Extremity: Skin warm, dry, and intact; no lesions, rashes or ulcers noted. Muscle mass equal and symmetric to contralateral side. No atrophy noted. No masses or effusions noted. No tenderness to palpation all joints nontender throughout rest of extremity. Full passive and active ROM, free from pain. Joints stable with no pathologic laxity. M/R/U/MSK/AX motor intact; SILT distally; 2+ radial pulses; Cap refill brisk. Tone and reflexes normal. Right Lower Extremity: Skin warm, dry, and intact; no lesions, rashes or ulcers noted. Muscle mass equal and symmetric to contralateral side. No atrophy noted. No masses or effusions noted. No tenderness to palpation all joints; nontender throughout rest of extremity. No cords or calf tenderness No significant calf/ankle edema. Full passive and active ROM, free from pain. Joints stable with no pathologic laxity. EHL/TA/GS motor intact; SILT distally; 2+ DP pulses; Cap refill brisk. Tone and reflexes normal. Able to SLR Left Lower Extremity: Skin warm, dry, and intact; no lesions, rashes or ulcers noted. Muscle mass equal and symmetric to contralateral side. No atrophy noted. No masses or effusions noted. No tenderness to palpation all joints; nontender throughout rest of extremity. No cords or calf tenderness No significant calf/ankle edema. Full passive and active ROM, free from pain. Joints stable with no pathologic laxity. EHL/TA/GS motor intact; SILT distally; 2+ DP pulses; Cap refill brisk. Tone and reflexes normal. Able to SLR Past Medical History Cardio/Vascular HTN,Hyperlipdemia Gastrointestinal Diverticulosis,Hiatal Hernia,Other Heme/Onc Anemia Dermatology Basal Cell Additional Medical History Cataracts DJD Past Surgical History Past Surgical History Breast Biopsy,Colonoscopy,Joint Replacement, Tonsillectomy,Upper Endoscopy Social History Smoking history Never smoked Aproximately how many 20 cigarettes per day If you are a former smoker, 1995 when did you quit? Hx Alcohol Use No History of Substance Use None Usual Living Arrangement Alone ADL Independent Occupation retired form [employer] medical records History of Recent Travel No Allergies Allergy/AdvReac Type Severity Reaction Status Date / Time adhesive Allergy Intermediate Itching Verified 04/24/19 20:32 aspirin Allergy Intermediate POSS GI Verified 04/24/19 20:32 BLEEDING-ANEMIA NSAIDS (Non-Steroidal Allergy Intermediate POSS GI Verified 04/24/19 20:32 Anti-Inflamma BLEEDING-ANEMIA polyethylene glycol 3350 Allergy Intermediate ITCHING, Verified 04/24/19 20:32 [From Miralax] HIVES ranitidine Allergy Intermediate Itching, Verified 04/24/19 20:32 HIVES latex Allergy Itching Verified 04/24/19 20:32 BANDAIDS Allergy Intermediate ITCHING, Uncoded 04/24/19 20:32 HIVES Vital Signs (last) Temp Pulse Resp BP Pulse Ox 97.8 F 105 H 20 193/89 H 100 04/24/19 20:29 04/24/19 20:29 04/24/19 20:29 04/24/19 20:29 04/24/19 20:29 Intake and Output 04/22/19 04/23/19 04/24/19 23:59 23:59 23:59 Other: Weight 128 lb Height 5 ft 3 in Body Mass Index (BMI) 22.6 Weight Measurement Method Est/Stated by Patient IMAGING I personally reviewed all radiographs of the forearm and wrist. They demonstrate a distal radius fracture with significant displacement and dorsal comminution. ASSESSMENT AND PLAN Ms. Dietz is a 78 year old male with a right sided distal radius fracture. We have reviewed the imaging and clinical findings in detail, as well as their potential implications. After appropriate informed discussion, a closed reduction was performed and the patient was placed in a well-padded splint. Patient was instructed regarding: non weight bearing on fractured side. signs and symptoms of compartment syndrome and need to seek immediate care should new onset numbness, tingling, or significantly increasing pain occur. maintain strict elevation above the level of the heart for the next 3-4 days. keeping the splint clean and dry. avoiding NSAID medications. Procedure Note for Closed Reduction and Application of Sugartong splint. After informed consent was obtained a hematoma block was performed with 8mL of 1 % lidocaine. This was done using sterile technique. The patient tolerated it well. We then performed a closed reduction using ligamentotaxis by bringing the distal fragment into better alignment. The patient was then placed in a well-padded splint. Postreduction radiographs showed improved alignment of the fracture. All questions were answered. Thank you for involving our team in the care of this patient. Please have patient follow up in our office in 1 week [phone].
--- NOTE | 2019-04-24 23:01 | PDOC ---
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) Cardiac Disorders: No CVA: No COPD: No CHF: No Dementia: No Diabetes: No GI Disorders: Yes (REFLUX, HIATAL HERNIA, DIVERTICULOSIS) Disorders: No HTN: Yes Hypercholesterolemia: No Liver Disease: No Seizures: No Thyroid Disease: No - Surgical History Abdominal Surgery: No Appendectomy: No Cardiac Surgery: No Cholecystectomy: No Lung Surgery: No Neurologic Surgery: No Orthopedic Surgery: Yes (right hip sx x3 weeks ago) - Psycho Social/Smoking Cessation Hx Smoking History: Never smoked Have you smoked in the past 12 months: No Number of Cigarettes Smoked Daily: 20 If you are a former smoker, when did you quit?: 1994 Information on smoking cessation initiated: No Hx Alcohol Use: No Drug/Substance Use Hx: No Substance Use Type: None Hx Substance Use Treatment: No <Abbi Chicas - Last Filed: 04/25/19 01:11> <Radha Whiteside - Last Filed: 04/25/19 02:02> - Past Medical History Allergies/Adverse Reactions: Allergies Allergy/AdvReac Type Severity Reaction Status Date / Time adhesive Allergy Intermediate Itching Verified 04/24/19 20:32 aspirin Allergy Intermediate POSS GI Verified 04/24/19 20:32 BLEEDING-ANEMIA NSAIDS (Non-Steroidal Allergy Intermediate POSS GI Verified 04/24/19 20:32 Anti-Inflamma BLEEDING-ANEMIA polyethylene glycol 3350 Allergy Intermediate ITCHING, Verified 04/24/19 20:32 [From Miralax] HIVES ranitidine Allergy Intermediate Itching, Verified 04/24/19 20:32 HIVES latex Allergy Itching Verified 04/24/19 20:32 BANDAIDS Allergy Intermediate ITCHING, Uncoded 04/24/19 20:32 HIVES Home Medications: Ambulatory Orders Ascorbate Calcium [Vitamin C] 500 mg PO DAILY 03/24/14 Amlodipine Besylate [Norvasc -] 5 mg PO DAILY 12/04/18 Chlorhexidine Gluconate [Peridex -] 1 unit DAILY 12/05/18 Losartan/Hydrochlorothiazide [Losartan-Hctz 100-12.5 mg Tab] 1 each PO DAILY Ferrous Sulfate [Iron] 325 mg PO BID 30 Days #60 tablet 01/07/19 Pantoprazole Sodium [Protonix -] 40 mg PO BID 30 Days #60 tablet.ec 01/07/19 Cephalexin Monohydrate [Keflex -] 500 mg PO BID #14 capsule 04/25/19 Oxycodone HCl/Acetaminophen [Percocet 5-325 mg Tablet] 1 tab PO Q6H #12 tablet MDD 4 04/25/19 *Physical Exam - Vital Signs Last Vital Signs Temp Pulse Resp BP Pulse Ox 97.8 F 105 H 20 193/89 H 100 04/24/19 20:29 04/24/19 20:29 04/24/19 20:29 04/24/19 20:29 04/24/19 20:29 <Abbi Chicas - Last Filed: 04/25/19 01:11> - Vital Signs Last Vital Signs Temp Pulse Resp BP Pulse Ox 97.8 F 105 H 20 193/89 H 100 04/24/19 20:29 04/24/19 20:29 04/24/19 20:29 04/24/19 20:29 04/24/19 20:29 <Radha Whiteside - Last Filed: 04/25/19 02:02> ED Treatment Course - LABORATORY CBC & Chemistry Diagram: 04/24/19 22:50 04/24/19 22:50 - RADIOLOGY Radiology Studies Ordered: Category Date Time Status HEAD CT WITHOUT CONTRAST [CT] Stat CT Scan 04/24/19 21:24 Ordered ELBOW-RIGHT [RAD] Stat Radiology 04/24/19 21:24 Taken SHOULDER W/TRANS-RIGHT [RAD] Stat Radiology 04/24/19 21:24 Taken WRIST W/HAND-RIGHT* [RAD] Stat Radiology 04/24/19 21:21 Taken WRIST W/HAND-RIGHT* [RAD] Stat Radiology 04/24/19 22:22 Taken - Medications Given in the ED: ED Medications Discontinued Medications Generic Name Dose Route Start Last Admin Trade Name Freq PRN Reason Stop Dose Admin Lidocaine HCl 10 ml 04/24/19 21:31 04/24/19 21:55 Xylocaine 1% SQ 04/24/19 21:32 10 ml ONCE ONE Administration Oxycodone/Acetaminophen 1 combo 04/24/19 21:21 04/24/19 21:54 Percocet 5/325 - PO 04/24/19 21:22 1 combo ONCE ONE Administration <Abbi Chicas - Last Filed: 04/25/19 01:11> - LABORATORY CBC & Chemistry Diagram: 04/24/19 22:50 04/24/19 22:50 - ADDITIONAL ORDERS Additional order review: Laboratory Results 04/24/19 22:50 Sodium 132 L Potassium 3.7 Chloride 100 Carbon Dioxide 24 Anion Gap 8 BUN 22.7 H Creatinine 0.9 Est GFR (CKD-EPI)AfAm 70.48 Est GFR (CKD-EPI)NonAf 60.81 Random Glucose 149 H Calcium 9.0 Total Bilirubin 0.8 AST 23 ALT 20 Alkaline Phosphatase 137 H Total Protein 7.2 Albumin 3.7 04/24/19 22:50 RBC 3.84 MCV 91.4 MCHC 33.0 RDW 14.8 MPV 6.6 L D Neutrophils % 88.9 H D Lymphocytes % 5.9 L D Monocytes % 4.6 Eosinophils % 0.2 D Basophils % 0.4 - Medications Given in the ED: ED Medications Discontinued Medications Generic Name Dose Route Start Last Admin Trade Name Freq PRN Reason Stop Dose Admin Lidocaine HCl 10 ml 04/24/19 21:31 04/24/19 21:55 Xylocaine 1% SQ 04/24/19 21:32 10 ml ONCE ONE Administration Oxycodone/Acetaminophen 1 combo 04/24/19 21:21 04/24/19 21:54 Percocet 5/325 - PO 04/24/19 21:22 1 combo ONCE ONE Administration <Radha Whiteside - Last Filed: 04/25/19 02:02> Medical Decision Making - Medical Decision Making 04/24/19 23:37 The patient was seen and evaluated in conjunction with midlevel provider under my direct supervision, ancillary studies were reviewed. I agree with the plan as outlined with GUERDA Chicas. HPI, workup/dispo as outlined. VS reviewed, mild hypertensive/tachy, likely from pain as pt has wrist fx. splinted, immobilized ortho followup as outpatient, Dr Zuniga/[facility] with scalp hematoma, no ICH/skull fx. anticipate discharge, pcp followup, return precautions 04/25/19 02:00 04/25/19 02:01 <Radha Whiteside - Last Filed: 04/25/19 02:02> Discharge - Discharge Information Problems reviewed: Yes - Admission No <Abbi Chicas - Last Filed: 04/25/19 01:11> <Radha Whiteside - Last Filed: 04/25/19 02:02> - Discharge Information Clinical Impression/Diagnosis: UTI (urinary tract infection) Qualifiers: Urinary tract infection type: acute cystitis Hematuria presence: without hematuria Qualified Code(s): N30.00 - Acute cystitis without hematuria Wrist fracture Qualifiers: Encounter type: initial encounter Fracture type: closed Laterality: right Qualified Code(s): S62.101A - Fracture of unspecified carpal bone, right wrist, initial encounter for closed fracture Ankle sprain Qualifiers: Encounter type: initial encounter Involved ligament of ankle: calcaneofibular ligament Laterality: left Qualified Code(s): S93.412A - Sprain of calcaneofibular ligament of left ankle, initial encounter Condition: Stable Disposition: HOME - Additional Discharge Information Prescriptions: Cephalexin Monohydrate [Keflex -] 500 mg PO BID #14 capsule Oxycodone HCl/Acetaminophen [Percocet 5-325 mg Tablet] 1 tab PO Q6H #12 tablet MDD 4 - Follow up/Referral Referrals: Elke Bales MD [Primary Care Provider] - - Patient Discharge Instructions Patient Printed Discharge Instructions: DI for Wrist Fracture, DI for Urinary Tract Infection (UTI) Additional Instructions: You were evaluated for injuries after your fall today. You broke your right wrist. It was set in the ER. Wear the sling during the day today and keep the arm elevated. You may ice the hand over the splint to help reduce swelling You may take the Percocet every 6 hours as needed for pain. Do not drink or drive after taking this medication as it may make you drowsy. Please keep the splint clean and dry. Do not get it wet when showering. Leave the splint on until you can follow-up with Dr. Zuniga. Please call Dr. Zuniga's office tomorrow to schedule a follow-up appointment. You also have a urinary tract infection. You were given your first dose of antibiotics in the ER. Please take the antibiotics as directed for 1 week. Drink plenty of fluids Please follow-up with your primary care doctor tomorrow. Return to the ER for worsening pain, difficulty walking, or if you have any changes in your symptoms. - Post Discharge Activity Work/Back to School Note: Back to Work
[2019-04-24 23:06] LABS: BASO % 0.4 % (0-2.0); EOS % 0.2 % (0-4.5); HEMOGLOBIN 11.6 GM/dL (10.7-15.3); LYMPH % 5.9 % (8-40); MCH 30.2 pg (25.7-33.7); MEAN CELL VOLUME 91.4 fl (80-96); MEAN PLT VOLUME 6.6 fl (7.5-11.1); MONO % 4.6 % (3.8-10.2); NEUT % 88.9 % (42.8-82.8); PLATELET COUNT 250 K/MM3 (134-434); RBC 3.84 M/mm3 (3.60-5.2); RDW 14.8 % (11.6-15.6); WHITE BLOOD COUNT 11.2 K/mm3 (4.0-10.0)
[2019-04-24 23:31] LABS: ALBUMIN 3.7 g/dl (3.4-5.0); BILIRUBIN,TOTAL 0.8 mg/dL (0.2-1); BLOOD UREA NITROGEN 22.7 mg/dL (7-18); CREATININE 0.9 mg/dL (0.55-1.3); POTASSIUM 3.7 mmol/L (3.5-5.1); TOT PROT 7.2 g/dl (6.4-8.2)
[2019-04-25 01:04] LABS: EPI CELLS 2.1 /HPF (0-5/HPF); HYALINE CASTS 9 /lpf (0-8); URINE APPEARANCE CLOUDY; URINE BACTERIA 105.3 /hpf (NEGATIVE); URINE BILIRUBIN NEGATIVE (NEGATIVE); URINE COLOR YELLOW; URINE GLUCOSE (UA) NEGATIVE (NEGATIVE); URINE KETONE NEGATIVE (NEGATIVE); URINE LEUK ESTERASE 3+ (NEGATIVE); URINE NITRITE NEGATIVE (NEGATIVE); URINE PROTEIN NEGATIVE (NEGATIVE); URINE RBC 4 /hpf (0-4); URINE UROBILINOGEN 0.2 mg/dL (0.2-1.0); URINE WBC 104 /hpf (0-5)
[2019-04-25] MEDS ORDERED: CEPHALEXIN MONOHYDRATE 500 MG CAPSULE (UD) PO ONE (01:09)
[2019-04-25] MEDS ORDERED: CEPHALEXIN MONOHYDRATE 500 MG CAPSULE (UD) ONE (01:11)
== END 2019-04-25 01:19 | disposition home or self-care (01) ==
LOC: JER 20:09
PROC: 0PSHXZZ Reposition Right Radius, External Approach (ICD-10-PCS; principal; 2019-04-24)
PROC: 3E023BZ Introduction of Anesthetic Agent into Muscle, Percutaneous Approach (ICD-10-PCS; 2019-04-24)
DX: S52.591A Other fractures of lower end of right radius, initial encounter for closed fracture (principal); S93.412A Sprain of calcaneofibular ligament of left ankle, initial encounter; S00.03XA Contusion of scalp, initial encounter; W18.39XA Other fall on same level, initial encounter; Y92.038 Other place in apartment as the place of occurrence of the external cause; Y93.89 Activity, other specified; Y99.8 Other external cause status; N30.00 Acute cystitis without hematuria; B96.89 Other specified bacterial agents as the cause of diseases classified elsewhere; I10 Essential (primary) hypertension; D64.9 Anemia, unspecified; Z85.828 Personal history of other malignant neoplasm of skin; Z98.890 Other specified postprocedural states; Z91.040 Latex allergy status; Z91.048 Other nonmedicinal substance allergy status; Z88.6 Allergy status to analgesic agent
CPT/HCPCS: 36415; 70450-TC; 73030-TC-RT-FY; 73070-TC-RT-FY; 73110-TC-RT-FY; 73130-TC-RT-FY; 73610-TC-LT-FY; 73630-TC-LT; 80053; 81003; 85025; 87086; 87186; 99284-25

== ENCOUNTER 2022-02-13 10:52 | Emergency (ER) | payer OTHER, MEDICARE ==
[2022-02-13 10:55] VITALS: RESP 18; BMI 21.2
[2022-02-13] MEDS ORDERED: ACETAMINOPHEN 500 MG TABLET (FP) PO ONE (11:48)
[2022-02-13] MEDS ORDERED: ACETAMINOPHEN 500 MG TABLET (FP) ONE (12:22)
[2022-02-13 12:53] LABS: BASO % 0.6 % (0-2.0); EOS % 0.2 % (0-4.5); HEMATOCRIT 37.4 % (32.4-45.2); HEMOGLOBIN 12.8 GM/dL (10.7-15.3); LYMPH % 9.9 % (8-40); MCH 31.5 pg (25.7-33.7); MCHC 34.2 g/dl (32.0-36.0); MEAN CELL VOLUME 92.3 fl (80-96); MEAN PLT VOLUME 6.6 fl (7.5-11.1); MONO % 7.9 % (3.8-10.2); NEUT % 81.4 % (42.8-82.8); PLATELET COUNT 272 10^3/uL (134-434); RBC 4.05 M/mm3 (3.60-5.2); RDW 13.6 % (11.6-15.6); WHITE BLOOD COUNT 7.3 K/mm3 (4.0-10.0)
[2022-02-13 13:09] LABS: EPI CELLS 29 /uL (0-25.1); HYALINE CASTS 1 /uL (0-3.1); PH,URINE 6.5 (5.0-8.0); URINE APPEARANCE CLEAR; URINE BACTERIA 159 /uL (0-1359); URINE BILIRUBIN NEGATIVE (NEGATIVE); URINE COLOR YELLOW; URINE GLUCOSE (UA) NEGATIVE (NEGATIVE); URINE KETONE NEGATIVE (NEGATIVE); URINE LEUK ESTERASE 3+ (NEGATIVE); URINE NITRITE NEGATIVE (NEGATIVE); URINE PROTEIN NEGATIVE (NEGATIVE); URINE UROBILINOGEN 0.2 mg/dL (0.2-1.0); URINE WBC 95 /uL (0-25.8)
[2022-02-13 13:58] LABS: ALBUMIN 3.7 g/dl (3.4-5.0); BLOOD UREA NITROGEN 12.8 mg/dL (7-18); CALCIUM 9.1 mg/dL (8.5-10.1); MAGNESIUM 2.2 mg/dL (1.8-2.4)
[2022-02-13 14:01] LABS: CREATININE 0.6 mg/dL (0.55-1.3)
[2022-02-13 14:02] LABS: BILIRUBIN,TOTAL 1.3 mg/dL (0.2-1); TOT PROT 7.1 g/dl (6.4-8.2)
[2022-02-13 14:22] LABS: URINE RBC 29.9 /uL (0-23.9)
[2022-02-13 15:02] VITALS: TEMP 97.8
[2022-02-13 15:06] VITALS: BP 131/66; PULSE 82
== END 2022-02-13 20:05 | disposition home or self-care (01) ==
LOC: JER 10:52
DX: N39.0 Urinary tract infection, site not specified (principal); W19.XXXA Unspecified fall, initial encounter
CPT/HCPCS: 0241U-QW; 36415; 70450-TC; 71250-TC; 72125-TC; 72170-TC-FY; 80053; 81003; 83735; 84484; 85025; 87086; 93005; 93010; 99285-25